=== PATIENT | male | born 1935 | race Caucasian/White ===

== ENCOUNTER → 2021-04-18 | Outpatient (CLI) | payer MEDICARE ==
[2021-04-18 10:03] LABS: HCT 34.1 % (39.0-53.0); HGB 11.1 gm/dL (13.0-17.5); Hypochromasia Slight; MCH 26.5 pg (25.0-35.0); MCHC 32.5 g/dL (31.0-37.0); MCV 81.4 fL (80.0-100.0); Mean Platelet Volume 6.8; Platelet Count 304 k/uL (150-450); RBC 4.19 m/uL (4.30-5.90); RDW 14.9 % (11.5-15.5); WBC 9.2 k/uL (3.8-10.6)
[2021-04-18 10:12] LABS: Partial Thromboplastin Time 24.7 sec (22.0-30.0); Prothrombin Time 11.1 sec (9.0-12.0)
[2021-04-18 10:14] LABS: Appearance,Urine Clear (Clear); Bilirubin,Urine Negative (Negative); Blood,Urine Negative (Negative); Color,Urine Yellow; Glucose,Urine (UA) Negative (Negative); Ketones,Urine Negative (Negative); Leukocyte Esterase,Urine Negative (Negative); Nitrite,Urine Negative (Negative); PH, Urine 5.5 (5.0-8.0); Protein,Urine Negative (Negative); Specific Gravity,Urine 1.019 (1.001-1.035); Urobilinogen,Urine <2.0 mg/dL (<2.0)
[2021-04-18 10:16] LABS: ALT 10 U/L (4-49); AST 23 U/L (17-59); African American GFR (CKD) >90 (>60 ml/min/1.73 sqM); Albumin 3.8 g/dL (3.5-5.0); Alkaline Phosphatase 84 U/L (38-126); Anion Gap 6 mmol/L; Blood Urea Nitrogen 17 mg/dL (9-20); Calcium 9.3 mg/dL (8.4-10.2); Carbon Dioxide 32 mmol/L (22-30); Chloride 100 mmol/L (98-107); Glucose 113 mg/dL (74-99); Non-African American GFR(CKD) 84 (>60 ml/min/1.73 sqM); Potassium 4.3 mmol/L (3.5-5.1); Sodium 138 mmol/L (137-145); Total Bilirubin 0.6 mg/dL (0.2-1.3); Total Protein 7.8 g/dL (6.3-8.2)
== END | disposition home or self-care (01) ==
LOC: LABPAT 09:09
PROVIDERS: ATTEND Orthopaedic Surgery
DX: Z01.812 Encounter for preprocedural laboratory examination (principal); Z79.01 Long term (current) use of anticoagulants
CPT/HCPCS: 80053; 81003; 85027; 85610; 85730; 87070; 93005

== ENCOUNTER → 2021-04-18 | Outpatient (CLI) | payer MEDICARE ==
[2021-04-18 14:50] LABS: LDL Cholesterol,Calculated 60.8 mg/dL (0.0-131.0); VLDL Calculation 11.2 mg/dL (5.00-40.00)
== END | disposition home or self-care (01) ==
LOC: LABWHC1 09:11
PROVIDERS: ATTEND Family Medicine
DX: E78.00 Pure hypercholesterolemia, unspecified (principal); I10 Essential (primary) hypertension; R63.4 Abnormal weight loss; R10.9 Unspecified abdominal pain
CPT/HCPCS: 36415; 80061; 82150; 83690; 84443

== ENCOUNTER 2021-05-09 13:14 | Observation (INO) | payer MEDICARE ==
[2021-05-03 13:49] VITALS: BMI 27.2
[~2021-05-09 13:14] MED LIST: ACETAMINOPHEN TAB 500 MG TAB PO PRN; HYDROmorphone 0.5 MG/0.5 ML SYRINGE IVP PRN; MELOXICAM 7.5 MG TAB PO PRN; MIDAZOLAM 2 MG/2 ML VIAL IV PRN; ONDANSETRON 4 MG/2 ML VIAL IVP PRN; ROPIVACAINE/EPI/CLONIDINE/KET 50 ML SYRINGE MISCELLANE PRN; TRANEXAMIC ACID 1,000 MG in SODIUM CHLORIDE 0.9% 100 ML IVPB PRN
[2021-05-09] MEDS: LACTATED RINGERS 1,000 ML IV SCH (14:01)
[2021-05-09] MEDS ORDERED: fentaNYL (PF) 50 MCG/ML 2 ML AMP IVP ONE (14:23)
[2021-05-09] MEDS ORDERED: MIDAZOLAM 2 MG/2 ML VIAL IVP ONE (14:23)
[2021-05-09] MEDS ORDERED: ROPIVACAINE 5 MG/ML 30 ML VIAL ONE (14:41)
[2021-05-09] MEDS ORDERED: fentaNYL (PF) 50 MCG/ML 2 ML AMP ONE (14:41)
[2021-05-09] MEDS ORDERED: SODIUM CHLORIDE 0.9% (PF) 10 ML VIAL ONE (14:41)
[2021-05-09] MEDS ORDERED: PROPOFOL 10 MG/ML 20 ML VIAL IV ONE (14:41)
[2021-05-09] MEDS ORDERED: PHENYLEPHRINE-0.9% NACL SYG 1,000 MCG/10 ML SYRINGE ONE (14:41)
[2021-05-09] MEDS ORDERED: MIDAZOLAM 2 MG/2 ML VIAL ONE (14:41)
[2021-05-09] MEDS ORDERED: SODIUM CHLORIDE 0.9% 100 ML BAG ONE (14:41)
[2021-05-09] MEDS ORDERED: TRANEXAMIC ACID 1,000 MG/10 ML VIAL ONE (14:41)
--- NOTE | 2021-05-09 15:03 | P.ANPRN ---
Procedure Note - Anesthesia - Nerve Block Performed Right Adductor Canal Infusion Time Out Performed: Yes (1422) Date of Procedure: 05/09/21 Procedure Start Time: 14:24 Procedure Stop Time: 14:31 Location of Patient: PreOp Indication: Acute Post-Operative Pain, Requested by Surgeon Specifically requested for management of pain by DrChristopher: Kevin Montez Sedation Type: Sedate with meaningful contact maintained Preparation: Sterile Prep Position: Supine Catheter Depth at Skin (cm): 7 Needle Types: Pajunk Needle Gauge: 21 Ultrasound used to visualize needle placement: Yes Ultrasound used to observe medication spread: Yes Injectate: 0.5% Ropivacaine (see comment for volume) (15cc + 5cc NACL) Blood Aspirated: No Pain Paresthesia on Injection Noted: No Resistance on Injection: Normal Image Stored and Saved: Yes Events: Uneventful and Well Tolerated Right iPack Single Time Out Performed: Yes (1422) Date of Procedure: 05/09/21 Procedure Start Time: 14:32 Procedure Stop Time: 14:36 Location of Patient: PreOp Indication: Acute Post-Operative Pain, Requested by Surgeon Specifically requested for management of pain by DrChristopher: Kevin Montez Sedation Type: Sedate with meaningful contact maintained Preparation: Sterile Prep Position: Supine Catheter: Indwelling Needle Types: Pajunk Needle Gauge: 21 Ultrasound used to visualize needle placement: Yes Ultrasound used to observe medication spread: Yes Injectate: 0.5% Ropivacaine (see comment for volume) (15cc + 5cc NACL) Blood Aspirated: No Pain Paresthesia on Injection Noted: No Resistance on Injection: Normal Image Stored and Saved: Yes Events: Uneventful and Well Tolerated
[2021-05-09] MEDS ORDERED: HYDROmorphone 0.5 MG/0.5 ML SYRINGE IVP PRN (17:11)
[2021-05-09] MEDS ORDERED: NALOXONE 0.4 MG/ML 1 ML VIAL IV PRN (17:11)
[2021-05-09] MEDS ORDERED: HYDROcodone/APAP 5-325MG 1 EACH TAB PO PRN (17:11)
[2021-05-09] MEDS ORDERED: TEMAZEPAM 15 MG CAP PO PRN (17:11)
[2021-05-09] MEDS ORDERED: NA PHOS,M-B/NA PHOS,DI-BA 133 ML ENEMA RECTAL PRN (17:11)
[2021-05-09] MEDS ORDERED: HYDROmorphone 0.2 MG/1 ML SYRINGE IVP PRN (17:11)
[2021-05-09] MEDS ORDERED: bisacodyL 10 MG SUPP RECTAL PRN (17:11)
[2021-05-09] MEDS ORDERED: ONDANSETRON 4 MG/2 ML VIAL IVP PRN (17:11)
[2021-05-09] MEDS: ROPIVACAINE 0.2%-NS ON-Q PUMP 1,090 MG, EMPTY PAIN BALL 1 EACH MISCELLANE PRN (17:21)
--- NOTE | 2021-05-09 17:25 | P.OP ---
Date of Procedure: 05/09/21 Procedure(s) Performed: PREOPERATIVE DIAGNOSIS: Right knee severe osteoarthritis with severe preoper ative flexion contracture POSTOPERATIVE DIAGNOSIS: 1. Right knee severe osteoarthritis with severe preoperative flexion contracture; 2. Inflammatory arthropathy OPERATION: Right knee cemented total replacement arthroplasty. ANESTHESIA: Spinal and regional ESTIMATED BLOOD LOSS: 150 ml. POWER ORIGINATOR: Kate Lomas PA-C (assistance with: patient positioning, retraction, exposure, hemostasis, leg positioning, implantation, irrigation, closure, dressing) COMPLICATIONS: None apparent. COMPONENTS IMPLANTED: Journey II BCS total knee system from [employer] [facility] [facility], [facility] INDICATIONS: Be is an 86 year old male with a history of right knee osteoarthritis and severe flextion contracture amounting to about 25 degrees loss of terminal extension. The patient's knee is end-stage, and conservative management has failed. The operation of knee replacement has been discussed at length in the office, as well as potential risks and complications. These are inclusive of, but not limited to: bleeding, infection, scarring, discomfort, blood vessel and nerve damage, need for further surgery, failure to relieve symptoms, persistence, recurrence, or worsening of problems, loosening, dislo cation, wear, blood clot, pulmonary embolism, , gait dysfunction, stiffness, and other risks as discussed in the office. The patient elects to proceed and the consent form has been signed. PROCEDURE: The patient was taken to the operating room and positioned on the operating room table in the supine position. Anesthesia was initiated. Care was taken to make sure that all pressure points were adequately padded. The operative lower extremity was prepped and draped in the usual aseptic fashion using ChloraPrep. Ioban drape was used for the case and the patient received intravenous antibiotics within one hour of the incision. A pneumotourniquet and leg palma were used for the case. Time-out was called confirming the patient's identity, side, procedure and administration of antibiotics and tranexamic acid. The incision was then created midline directly over the right knee, carried down through skin and into the subcutaneous tissues and down to fascia. Full thickness subcutaneous medial flap was developed. Medial parapatellar arthrotomy was performed and the interior of the knee was inspected. There was end-stage osteoarthritis of the knee with a mild to moderate genu valgum type deformity. Significant inflammation of the synovium was noted, consistent with possible generalized inflammatory arthropathy. The fat pad was excised and proximal medial release on the tibia was completed using meticulous dissection and a curved osteotome. The anterior cruciate ligament was taken down. Note was made of significant attrition of the anterior and significant degenerative a ppearance of the cruciate ligaments. The exposure was excellent and hemostasis was regularly maintained using electrocautery. This was particularly important as the severely inflamed synovium was resected, to prevent significant blood loss. The knee was flexed 90 degrees and the patella was everted. The [employer] pre- made distal cutting block was attached and pinned into position. The planned cut was analyzed visually and with the alignment ion and found to be satisfactory without the need for any adjustment. The oscillating saw was then used to make the distal femoral cut and make the alignment holes for the 5 in 1 block. This cut was confirmed to be flat with the flat end of an osteotome. The 5 in 1 block was then used to create the anterior posterior condylar resections and the chamfer cuts. Bone quality was excellent. The retractors were placed around the tibia and the tibial surface was addressed. The Visionaire pre-made guide was placed onto the exposed tibial surface and pinned into position to gabriel the rotational alignment. The alignment of the guide was checked for depth of plannned resection, slope, and varus valgus. Guide was confirmed to be in good position and the tibial cut was then created with protection of the posterior neurovascular structures and the collateral ligaments. The tibial cut surface was removed and sized. Spacer block technique was then used to confirm that the flexion and extension gaps were equal. Soft tissue releases and adjustment of the tibial and/or femoral cuts were made, as necessary, until the gaps were equal. This included release of the posterior cruciate ligament, which was excessively tight in this patient. The trial components were inserted. The tibial tray was allowed to self center and the patella was noted to track very well. The position of the tibial component was marked and noted to be nearly exactly aligned with the pre-drilled holes from the Visionaire guide. The tibia was then finished for a stemmed tibial component. Patellar resurfacing was performed using a reamer. The size of the required patellar component was estimated and the patellar surface was then reamed down to a residual thickness which would recreate the brevig mission thickness with the component. The exact placement of the patellar component was adjusted for position based on preoperative x-rays and intraoperative findings. The limb was exsanguinated with an Esmarch bandage and the tourniquet was inflated to 350 mmHg. Trial components were removed and the cut surfaces of the bone were pulse lavaged thoroughly and dried. Cement was mixed on the back table and applied to the final components. Cement was then applied to the tibial surface and pressurized into the surface using finger pressurization technique. The tibial component was then applied and excess cement was removed after it was impacted securely and noted to be flush with the cut surface. In similar fashion, the cement was applied to the cut femoral surface, pressurized in using finger pressurization and the component was impacted into place. Excess cement was removed. The polyethylene spacer was then implanted and locked into position. The patellar component was then applied in similar technique and a patellar clamp was used to hold the patella in place as the cement hardened. Once the cement had fully hardened, the knee was reinspected. Any other cement extrusion was removed and final kinematic testing showed range of motion from 0 to 130 degrees with excellent stability, both medially and laterally and appropriate alignment of the leg. Patellar tracking was excellent. The knee was then thoroughly pulse lavaged with normal saline. The tourniquet was deflated and hemostasis was obtained with electrocautery and IV tranexamic acid, 1 g given at the start of the operation and 1 g at the start of closure. Closure was with #2 Ethibond in the fascia/capsule and supplemented with #2 Quill, 2-0 Vicryl suture was used for the subcutaneous tissues and 3-0 Quill for the skin. Dermabond/Steri-Strips were then applied. A lightly compressive dressing was applied using Webril and an Nathan wrap. The patient was then transferred to stretcher and taken to the recovery room in stable condition. Sponge and needle counts were correct.
--- NOTE | 2021-05-09 17:48 | XR ---
EXAMINATION TYPE: XR knee limited RT DATE OF EXAM: 05/09/2021 COMPARISON: NONE HISTORY: Postop TECHNIQUE: 2 views FINDINGS: There is right knee prosthesis. Components appear in anatomic position.. IMPRESSION: No complicating process seen.
[2021-05-09] MEDS: HYDROmorphone 0.5 MG/0.5 ML SYRINGE IVP PRN ×2 (19:46→22:56)
[2021-05-09] MEDS: ASPIRIN 81 MG PO SCH (21:00)
[2021-05-09] MEDS: SENNOSIDES-DOCUSATE SODIUM 1 EACH TAB PO SCH (21:00)
[2021-05-09] MEDS: HYDROcodone/APAP 5-325MG 1 EACH TAB PO PRN (21:00)
[2021-05-10] MEDS: SENNOSIDES-DOCUSATE SODIUM 1 EACH TAB PO SCH (02:27)
[2021-05-10] MEDS: ROPIVACAINE 0.2%-NS ON-Q PUMP 1,090 MG, EMPTY PAIN BALL 1 EACH MISCELLANE PRN ×2 (04:46→05:59)
[2021-05-10] MEDS: HYDROmorphone 0.5 MG/0.5 ML SYRINGE IVP PRN ×2 (04:47→09:40)
[2021-05-10] MEDS: HYDROcodone/APAP 5-325MG 1 EACH TAB PO PRN ×2 (05:58→14:21)
[2021-05-10 05:59] LABS: Basophils % (A) 0 %; Eosinophils # (A) 0.1 k/uL (0-0.7); Eosinophils % (A) 1 %; HCT 36.6 % (39.0-53.0); HGB 11.6 gm/dL (13.0-17.5); Lymphocytes % (A) 14 %; MCH 26.6 pg (25.0-35.0); MCHC 31.7 g/dL (31.0-37.0); MCV 83.8 fL (80.0-100.0); Mean Platelet Volume 7.1; Monocytes # (A) 0.7 k/uL (0-1.0); Monocytes % (A) 9 %; Neutrophils # (A) 5.3 k/uL (1.3-7.7); Neutrophils % (A) 73 %; Platelet Count 267 k/uL (150-450); RBC 4.37 m/uL (4.30-5.90); WBC 7.3 k/uL (3.8-10.6)
[2021-05-10] MEDS: LACTATED RINGERS 1,000 ML IV SCH ×4 (07:57→14:19)
[2021-05-10] MEDS: ASPIRIN 81 MG PO SCH (08:01)
[2021-05-10] MEDS ORDERED: traZODone HCL 100 MG TAB PO PRN (08:20)
[2021-05-10] MEDS ORDERED: ATORVASTATIN 40 MG TAB PO SCH (09:00)
[2021-05-10] MEDS ORDERED: LOSARTAN 50 MG TAB PO SCH (09:00)
--- NOTE | 2021-05-10 11:32 | P.DS ---
Providers Expected date of discharge: 05/10/21 Attending physician: Kevin Montez Consults: 05/09/21 17:11 Consult Physician Routine Consulting Provider: Peri Burciaga Consult Reason/Comments: medical management Do you want consulting provider notified?: Yes Primary care physician: Ruel Jung - Discharge Diagnosis(es) (1) S/P total knee arthroplasty Current Visit: Yes Status: Acute (2) Osteoarthritis of right knee Current Visit: Yes Status: Acute Assessment: This is a 86-year-old male with known history of degenerative arthritis of the right knee. The patient presented for evaluation as an outpatient. After discussion and consideration patient elects to proceed with total knee arthroplasty. The patient is seen preoperatively by Dr. Montez and medically cleared for surgery by their primary care physician. Patient is admitted to [facility] on 05/09/2021 for total knee arthroplasty. The procedure is performed without complication or sequelae. The patient is doing well postoperatively. Labs and vital signs are stable on day of discharge. On day of discharge patient's knee incision is healing well. There is minimal erythema. There is no drainage noted at this time. There is minimal soft tissue swelling to the knee. Patient has full foot and ankle motion without difficulty or pain. Calf is soft and nontender to palpation. Neurovascular status to the right lower extremity is intact. Patient is discharged home in good condition. Please see med rec for accurate list of home medications. Plan - Discharge Summary Discharge Rx Participant: Yes New Discharge Prescriptions: New Aspirin [Adult Low Dose Aspirin EC] 81 mg PO BID #1 tablet.dr HYDROcodone/APAP 5-325MG [[place] 5] 1 - 2 each PO Q6H PRN #48 tab PRN Reason: Pain Ondansetron Odt [Zofran Odt] 4 mg PO Q8HR PRN #14 tab PRN Reason: Nausea Meloxicam [Mobic] 1 - 2 tab PO DAILY PRN #30 tab PRN Reason: Pain Gabapentin [Neurontin] 300 mg PO BID 5 Days #10 cap Sennosides-Docusate Sodium [Senokot-S] 1 tab PO BID #60 tablet Continue Losartan Potassium 50 mg PO DAILY Latanoprost Ophth [Xalatan 0.005%] 1 drop BOTH EYES HS Atorvastatin [Lipitor] 40 mg PO DAILY Potassium Gluconate 99 mg PO DAILY Nitroglycerin Sl Tabs [Nitrostat] 0.4 mg SUBLINGUAL Q5M PRN PRN Reason: Angina Naproxen Sodium [Aleve] 220 mg PO BID PRN PRN Reason: Pain traZODone HCL [Desyrel] 100 mg PO HS PRN PRN Reason: Insomnia Vit C/E/Zn/Coppr/Lutein/Zeaxan [Preservision Areds 2 Softgel] 1 each PO DAILY Discharge Medication List Atorvastatin [Lipitor] 40 mg PO DAILY 05/03/21 [History] Latanoprost Ophth [Xalatan 0.005%] 1 drop BOTH EYES HS 05/03/21 [History] Losartan Potassium 50 mg PO DAILY 05/03/21 [History] Naproxen Sodium [Aleve] 220 mg PO BID PRN 05/03/21 [History] Nitroglycerin Sl Tabs [Nitrostat] 0.4 mg SUBLINGUAL Q5M PRN 05/03/21 [History] Potassium Gluconate 99 mg PO DAILY 05/03/21 [History] Vit C/E/Zn/Coppr/Lutein/Zeaxan [Preservision Areds 2 Softgel] 1 each PO DAILY 05/03/21 [History] traZODone HCL [Desyrel] 100 mg PO HS PRN 05/03/21 [History] Aspirin [Adult Low Dose Aspirin EC] 81 mg PO BID #1 tablet. 05/09/21 [Rx] Gabapentin [Neurontin] 300 mg PO BID 5 Days #10 cap 05/09/21 [Rx] HYDROcodone/APAP 5-325MG [[place] 5] 1 - 2 each PO Q6H PRN #48 tab 05/09/21 [Rx] Meloxicam [Mobic] 1 - 2 tab PO DAILY PRN #30 tab 05/09/21 [Rx] Ondansetron Odt [Zofran Odt] 4 mg PO Q8HR PRN #14 tab 05/09/21 [Rx] Sennosides-Docusate Sodium [Senokot-S] 1 tab PO BID #60 tablet 05/09/21 [Rx] Follow up Appointment(s)/Referral(s): Kate Lomas PAC [PHYSICIAN DIVORCE ATTORNEY] - 2 Weeks Ruel Jung MD [Primary Care Provider] - 1 Week Activity/Diet/Wound Care/Special Instructions: May bear wt as tolerated w walker. May shower 48h post op. Keep Optifoam dressing intact 10 days. Begin out patient PT as directed. Discharge Disposition: HOME SELF-CARE
--- NOTE | 2021-05-10 11:55 | P.CONS ---
History of Present Illness - Reason for Consult Consult date: 05/10/21 - History of Present Illness HISTORY OF PRESENT ILLNESS This is an 86-year-old male patient of Dr. Ruel Jung's medical history of coronary artery disease with stent in 2007, hypertension, hyperlipidemia, benign prostatic hypertrophy, obstructive sleep apnea, glaucoma, blind in the left eye. Patient has been brought into the hospital under the care of Dr. Prater status post right total knee arthroplasty. Patient states no nausea or vomiting, no chest pain or shortness of breath. He is waiting to work with physical therapy this morning. He states that prior to the surgery he ambulated slowly but did not utilize cane or walker. He states he did have one episode of dizziness but this was about a week ago and had a fall at his sister's. Patient has been afebrile, heart rate 85, blood pressure 170/86, pulse ox 97%. Blood pressure was taken prior to medications as morning. He is planning to go to his sister's at the time of discharge. REVIEW OF SYSTEMS Constitutional: No fever, no chills, no night sweats. No weight change. No weakness, fatigue or lethargy. No daytime sleepiness. EENT: No headache. No blurred vision or double vision, no loss of vision. No loss of Hearing, no ringing in the ears, no dizziness. No nasal drainage or congestion. No epistaxis. No sore throat. Lungs: No shortness of breath, cough, no sputum production. No wheezing. Cardiovascular: No chest pain, no lower extremity edema. No palpitations. No paroxysmal nocturnal dyspnea. No orthopnea. No lightheadedness or dizziness. No syncopal episodes. Abdominal: No abdominal pain. No nausea, vomiting. No diarrhea. No constipation. No bloody or tarry stools.. No loss of appetite. Genitourinary: No dysuria, increased frequency, urgency. No urinary retention. Musculoskeletal: No myalgias. No muscle weakness, no gait dysfunction, no frequent falls. No back pain. No neck pain. Mild discomfort to the right knee. Integumentary: No wounds, no lesions. No rash or pruritus. No unusual bruising. No change in hair or nails. Neurologic: No aphasia. No facial droop. No change in mentation. No head injury. No headache. No paralysis. No paresthesia. Psychiatric: No depression. No anxiety. No mood swings. Endocrine: No abnormal blood sugars. No weight change. No excessive sweating or thirst. No cold intolerance. SOCIAL HISTORY Patient is a nonsmoker. He drinks a beer about once a week. He has his own home but has been living with his sister and plans to return to his sister's at discharge. He does not utilize cane or walker for ambulation. Patient is a . FAMILY HISTORY Father at age 64 from coronary artery disease. Mother at age 98 from old age. Patient has one brother living at 70s and is handicapped. He had one brother in his 50s from liver cancer. Patient has 3 sisters with no major medical problems. He does not have any biological children. PHYSICAL EXAMINATION Gen: This is an 86-year-old male patient. He is resting in bed and appears to be comfortable and in no acute distress. HEENT: Head is atraumatic, normocephalic. Pupils equal, round. Sclerae is anicteric. NECK: Supple. No JVD. No lymphadenopathy. No thyromegaly. LUNGS: Clear to auscultation. No wheezes or rhonchi. No intercostal retractions. HEART: Regular rate and rhythm. No murmur. ABDOMEN: Soft. Bowel sounds are present. No masses. No tenderness. EXTREMITIES: No pedal edema. No calf tenderness. Small dressing in place to the right knee. NEUROLOGICAL: Patient is awake, alert and oriented x3. Cranial nerves 2 through 12 are grossly intact. ASSESSMENT AND PLAN 1. Osteoarthritis status post right total knee arthroplasty. Continue PT OT per orthopedics, incentive spirometry to reduce incidence of atelectasis and hos pital-acquired pneumonia, aspirin for DVT prophylaxis. 2. Hypertension. Continue losartan 50 mg daily. 3. Hyperlipidemia. Continue Lipitor 40 mg daily. 4. History of coronary artery disease. No complaints of chest pain. Continue Lipitor, losartan. 5. Benign prostatic hypertrophy, stable. No urinary retention. 6. History of obstructive sleep apnea stable. 7. Glaucoma. DISCHARGE PLAN Return home with his sister with homecare. Impression and plan of care have been directed as dictated by the signing physician. Yojana Juarez nurse practitioner acting as scribe for signing physician. Past Medical History Past Medical History: Coronary Artery Disease (CAD), Eye Disorder, Hyperlipidemia, Hypertension, Prostate Disorder, Sleep Apnea/CPAP/BIPAP Additional Past Medical History / Comment(s): states not currently taking HTN meds, glaucoma, blind left eye History of Any Multi-Drug Resistant Organisms: None Reported Past Surgical History: Heart Catheterization With Stent Additional Past Surgical History / Comment(s): jodee cataract, hemmoroidectomy, one cardiac stent Past Anesthesia/Blood Transfusion Reactions: No Reported Reaction Date of Last Stent Placement:: 2007 Past Psychological History: No Psychological Hx Reported Smoking Status: Former smoker Past Alcohol Use History: Rare Past Drug Use History: None Reported Medications and Allergies Home Medications Medication Instructions Recorded Confirmed Type Atorvastatin [Lipitor] 40 mg PO DAILY 05/03/21 05/03/21 History Latanoprost Ophth [Xalatan 0.005%] 1 drop BOTH EYES HS 05/03/21 05/03/21 History Losartan Potassium 50 mg PO DAILY 05/03/21 05/03/21 History Naproxen Sodium [Aleve] 220 mg PO BID PRN 05/03/21 05/03/21 History Nitroglycerin Sl Tabs [Nitrostat] 0.4 mg SUBLINGUAL Q5M PRN 05/03/21 05/09/21 History Potassium Gluconate 99 mg PO DAILY 05/03/21 05/03/21 History Vit C/E/Zn/Coppr/Lutein/Zeaxan 1 each PO DAILY 05/03/21 05/03/21 History [Preservision Areds 2 Softgel] traZODone HCL [Desyrel] 100 mg PO HS PRN 05/03/21 05/03/21 History Aspirin [Adult Low Dose Aspirin EC] 81 mg PO BID #1 tablet. 05/09/21 Rx Gabapentin [Neurontin] 300 mg PO BID 5 Days #10 cap 05/09/21 Rx HYDROcodone/APAP 5-325MG [[place] 5] 1 - 2 each PO Q6H PRN #48 tab 05/09/21 Rx Meloxicam [Mobic] 1 - 2 tab PO DAILY PRN #30 tab 05/09/21 Rx Ondansetron Odt [Zofran Odt] 4 mg PO Q8HR PRN #14 tab 05/09/21 Rx Sennosides-Docusate Sodium 1 tab PO BID #60 tablet 05/09/21 Rx [Senokot-S] Allergies Allergy/AdvReac Type Severity Reaction Status Date / Time Penicillins Allergy Rash/Hives Verified 05/09/21 13:44 Physical Exam Vitals: Vital Signs Temp Pulse Pulse Resp BP Pulse Ox 05/10/21 04:11 98.8 F 85 14 170/86 97 05/10/21 02:11 94 16 145/78 05/10/21 00:11 89 14 152/70 95 05/09/21 22:11 98.6 F 90 14 145/70 95 05/09/21 21:00 98.7 F 98 16 163/68 97 05/09/21 20:11 98.6 F 95 16 166/73 97 05/09/21 19:11 97.7 F 79 16 183/86 97 05/09/21 18:06 52 L 16 142/65 100 05/09/21 17:51 50 L 16 136/62 98 05/09/21 17:36 50 L 16 131/64 99 05/09/21 17:21 53 L 16 139/66 98 05/09/21 17:06 96.8 F L 68 12 142/66 97 05/09/21 14:40 72 15 143/66 100 05/09/21 13:51 97.6 F 95 15 171/73 98 Intake and Output 05/09/21 05/10/21 05/10/21 22:59 06:59 14:59 Intake Total 50 Output Total 150 Balance -100 Intake: IV 50 Output: Estimated Blood Loss 150 Other: Weight 74.7 kg Results CBC & Chem 7: 05/10/21 05:26 Labs: Abnormal Lab Results - Last 24 Hours (Table) 05/10/21 Range/Units 05:26 Hgb 11.6 L (13.0-17.5) gm/dL Hct 36.6 L (39.0-53.0) %
[2021-05-10 12:08] VITALS: BP 167/79; PULSE 98; RESP 17; TEMP 98.1
[2021-05-10] MEDS ORDERED: LATANOPROST 0.005% OPHTH DROPS 2.5 ML BTL BOTH EYES SCH (21:00)
== END 2021-05-10 15:32 | disposition home health service (06) ==
LOC: OR 13:14 → 5NMEDONC 17:06 → OR 05-10 10:56 → 5NMEDONC 05-10 10:56
PROVIDERS: ADMIT Orthopaedic Surgery; ATTEND Orthopaedic Surgery
DX: M17.11 Unilateral primary osteoarthritis, right knee (principal); M21.061 Valgus deformity, not elsewhere classified, right knee; M24.561 Contracture, right knee; I25.10 Atherosclerotic heart disease of native coronary artery without angina pectoris; I10 Essential (primary) hypertension; E78.5 Hyperlipidemia, unspecified; G47.33 Obstructive sleep apnea (adult) (pediatric); H40.9 Unspecified glaucoma; H54.62 Unqualified visual loss, left eye, normal vision right eye; N40.0 Benign prostatic hyperplasia without lower urinary tract symptoms; G47.00 Insomnia, unspecified; M41.9 Scoliosis, unspecified; M54.16 Radiculopathy, lumbar region; N52.9 Male erectile dysfunction, unspecified; H93.19 Tinnitus, unspecified ear; M17.12 Unilateral primary osteoarthritis, left knee; Z79.2 Long term (current) use of antibiotics; Z79.82 Long term (current) use of aspirin; Z79.1 Long term (current) use of non-steroidal anti-inflammatories (NSAID); Z79.899 Other long term (current) drug therapy; Z88.0 Allergy status to penicillin; Z87.891 Personal history of nicotine dependence; Z97.3 Presence of spectacles and contact lenses; Z91.81 History of falling; Z98.890 Other specified postprocedural states; Z95.5 Presence of coronary angioplasty implant and graft; Z82.69 Family history of other diseases of the musculoskeletal system and connective tissue; Z81.2 Family history of tobacco abuse and dependence; Z82.49 Family history of ischemic heart disease and other diseases of the circulatory system; Z80.0 Family history of malignant neoplasm of digestive organs
CPT/HCPCS: 27447; 97162; 64999; 64448; 76942; 85025; 88300; 73560; G0378; C1713; C1776; J2250; J0690 ×2; J2405; J3010; J2795 ×3; J2370; J2704; J1170 ×2

== ENCOUNTER 2024-07-23 06:02 | Inpatient (IN) | payer MEDICARE ==
[2024-07-23] MEDS: HYDROmorphone 0.5 MG/0.5 ML SYRINGE IVP STA ×2 (06:24→07:50)
--- NOTE | 2024-07-23 06:52 | ED ---
Abdominal Pain HPI - General Chief Complaint: Abdominal Pain Stated Complaint: abd pain Time Seen by Provider: 07/23/24 06:13 Source: patient, EMS, RN notes reviewed Mode of arrival: EMS Limitations: no limitations - History of Present Illness Initial Comments: This is an 89-year-old male presents emergency department as a transfer from [facility] for abdominal pain. Patient states that he started having abdominal pain for the last 24 hours he states it worsened last night in which he presented to [facility] having an x-ray showing possibility of free air. Patient states he has pain in his upper stomach but there is some diffuse pain. He denies any significant change in bowel habits denies any dysuria patient was found to have elevated kidney function without any known history. Chest pain shortness of breath - Related Data Home Medications Medication Instructions Recorded Confirmed Atorvastatin [Lipitor] 40 mg PO DAILY 05/03/21 05/03/21 Latanoprost Ophth [Xalatan 0.005%] 1 drop BOTH EYES HS 05/03/21 05/03/21 Losartan Potassium 50 mg PO DAILY 05/03/21 05/03/21 Naproxen Sodium [Aleve] 220 mg PO BID PRN 05/03/21 05/03/21 Nitroglycerin Sl Tabs [Nitrostat] 0.4 mg SUBLINGUAL Q5M PRN 05/03/21 05/09/21 Potassium Gluconate [Potassium 99 mg PO DAILY 05/03/21 05/03/21 Gluconate ER] Vit C/E/Zn/Coppr/Lutein/Zeaxan 1 each PO DAILY 05/03/21 05/03/21 [Preservision Areds 2 Softgel] traZODone HCL [Desyrel] 100 mg PO HS PRN 05/03/21 05/03/21 Previous Rx's Medication Instructions Recorded Aspirin [Adult Low Dose Aspirin EC] 81 mg PO BID #1 tablet. 05/09/21 Gabapentin [Neurontin] 300 mg PO BID 5 Days #10 cap 05/09/21 HYDROcodone/APAP 5-325MG [[place] 5] 1 - 2 each PO Q6H PRN #48 tab 05/09/21 Meloxicam [Mobic] 1 - 2 tab PO DAILY PRN #30 tab 05/09/21 Ondansetron Odt [Zofran Odt] 4 mg PO Q8HR PRN #14 tab 05/09/21 Sennosides-Docusate Sodium 1 tab PO BID #60 tablet 05/09/21 [Senokot-S] Allergies Allergy/AdvReac Type Severity Reaction Status Date / Time Penicillins Allergy Rash/Hives Verified 07/23/24 06:17 Review of Systems ROS Statement: Those systems with pertinent positive or pertinent negative responses have been documented in the HPI. ROS Other: All systems not noted in ROS Statement are negative. Past Medical History Past Medical History: Coronary Artery Disease (CAD), Eye Disorder, Hyperlipidemia, Hypertension, Prostate Disorder, Sleep Apnea/CPAP/BIPAP Additional Past Medical History / Comment(s): states not currently taking HTN meds, glaucoma, blind left eye History of Any Multi-Drug Resistant Organisms: None Reported Past Surgical History: Heart Catheterization With Stent Additional Past Surgical History / Comment(s): jodee cataract, hemmoroidectomy, one cardiac stent Past Anesthesia/Blood Transfusion Reactions: No Reported Reaction Date of Last Stent Placement:: 2007 Past Psychological History: No Psychological Hx Reported Smoking Status: Former smoker Past Alcohol Use History: Rare Past Drug Use History: None Reported General Exam Limitations: no limitations General appearance: alert, in no apparent distress Head exam: Present: atraumatic, normocephalic, normal inspection Eye exam: Present: normal appearance, PERRL, EOMI. Absent: scleral icterus, conjunctival injection, periorbital swelling ENT exam: Present: normal exam, normal oropharynx, mucous membranes moist Neck exam: Present: normal inspection, full ROM. Absent: tenderness, meningismus, lymphadenopathy Respiratory exam: Present: normal lung sounds bilaterally. Absent: respiratory distress, wheezes, rales, rhonchi, stridor Cardiovascular Exam: Present: regular rate, normal rhythm, normal heart sounds. Absent: systolic murmur, diastolic murmur, rubs, gallop, clicks GI/Abdominal exam: Present: soft, tenderness, rigid, normal bowel sounds. Absent: distended, guarding, rebound Back exam: Absent: CVA tenderness (R), CVA tenderness (L) Neurological exam: Present: alert, oriented X3, CN II-XII intact Course Vital Signs 07/23/24 07/23/24 07/23/24 06:04 07:39 08:14 Temperature 97.6 F Pulse Rate 78 77 103 H Respiratory 18 18 18 Rate Blood Pressure 206/96 209/99 141/70 O2 Sat by Pulse 98 100 94 L Oximetry Medical Decision Making - Medical Decision Making Was pt. sent in by a medical professional or institution (TORITO Lorenzo, SECONDARY SET UP MAN, urgent care, hospital, or [facility]...) When possible be specific @ -[[facility] Did you speak to anyone other than the patient for history (EMS, parent, family, police, friend...)? What history was obtained from this source @ -No Did you review nursing and triage notes (agree or disagree)? Why? @ -I reviewed and agree with nursing and triage notes Were old charts reviewed (outside hosp., previous admission, EMS record, old EKG, old radiological studies, urgent care reports/EKG's, [facility] records)? Report findings @ -No old charts were reviewed Differential Diagnosis (chest pain, altered mental status, abdominal pain women, abdominal pain men, vaginal bleeding, weakness, fever, dyspnea, syncope, headache, dizziness, GI bleed, back pain, seizure, CVA, palpatations, mental health, musculoskeletal)? @ -Differential Abdominal Pain Men: Appendicitis, cholecystitis, diverticulosis, ischemic bowel, pancreatitis, hepatitis, UTI, gastroenteritis, AAA, incarcerated hernia, bowel obstruction, constipation, inflammatory bowel, hepatitis, peptic ulcer disease, splenic infarction, perforated viscus, testicular torsion, this is not meant to be an all-inclusive list EKG interpreted by me (3pts min.). @ -None X-rays interpreted by me (1pt min.). @ -None done CT interpreted by me (1pt min.). @ -CT abdomen pelvis showing no evidence of enlarged gallbladder no free air U/S interpreted by me (1pt. min.). @ -Ultrasound gallbladder, kidney and bladder showing normal kidneys no masses no hydronephrosis, evidence of cholelithiasis, cholecystitis What testing was considered but not performed or refused? (CT, X-rays, U/S, labs)? Why? @ -None What meds were considered but not given or refused? Why? @ -None Did you discuss the management of the patient with other professionals (professionals i.e. TORITO Lorenzo, SECONDARY SET UP MAN, lab, RT, psych nurse, social group worker, alteration tailor, teacher, agricultural loan officer, heel caser)? Give summary @ -Dr. Wilson for admission and notified Dr. Wells of possible cholelithiasis Was smoking cessation discussed for >3mins.? @ -No Was critical care preformed (if so, how long)? @ -No Were there social determinants of health that impacted care today? How? (Homelessness, low income, unemployed, alcoholism, drug addiction, transportation, low edu. Level, literacy, decrease access to med. care, [facility], rehab)? @ -No Was there de-escalation of care discussed even if they declined (Discuss DNR or withdrawal of care, Hospice)? DNR status @ -No What co-morbidities impacted this encounter? (DM, HTN, Smoking, COPD, CAD, Cancer, CVA, ARF, Chemo, Hep., AIDS, mental health diagnosis, sleep apnea, morbid obesity)? @ -None Was patient admitted / discharged? Hospital course, mention meds given and route, prescriptions, significant lab abnormalities, going to OR and other pertinent info. @ -Admitted patient has acute renal failure, dehydration, cholelithiasis with probable cholecystitis. Patient admitted to medicine with consult to surgery and nephrology Undiagnosed new problem with uncertain prognosis? @ -No Drug Therapy requiring intensive monitoring for toxicity (Heparin, Nitro, Insulin, Cardizem)? @ -No Were any procedures done? @ -No Diagnosis/symptom? @ -Acute renal failure, cholelithiasis, cholecystitis Acute, or Chronic, or Acute on Chronic? @ -Acute Uncomplicated (without systemic symptoms) or Complicated (systemic symptoms)? @ -Complicated Side effects of treatment? @ -No Exacerbation, Progression, or Severe Exacerbation? @ -No Poses a threat to life or bodily function? How? (Chest pain, [place], [place], pneumonia, PE, COPD, DKA, ARF, appy, cholecystitis, CVA, Diverticulitis, Homicidal, Suicidal, threat to staff... and all critical care pts) @ -Yes surgical risk - Lab Data Result diagrams: 07/23/24 07:31 07/23/24 07:31 Lab Results 07/23/24 07/23/24 07/23/24 Range/Units 07:31 07:31 07:31 WBC 11.4 H (3.8-10.6) k/uL RBC 4.10 L (4.30-5.90) m/uL Hgb 12.7 L (13.0-17.5) gm/dL Hct 36.5 L (39.0-53.0) % MCV 88.9 (80.0-100.0) fL MCH 30.9 (25.0-35.0) pg MCHC 34.7 (31.0-37.0) g/dL RDW 13.4 (11.5-15.5) % Plt Count 187 (150-450) k/uL MPV 8.6 Neutrophils % 84 % Lymphocytes % 8 % Monocytes % 5 % Eosinophils % 1 % Basophils % 0 % Neutrophils # 9.6 H (1.3-7.7) k/uL Lymphocytes # 1.0 (1.0-4.8) k/uL Monocytes # 0.6 (0-1.0) k/uL Eosinophils # 0.1 (0-0.7) k/uL Basophils # 0.0 (0-0.2) k/uL Sodium 143 (137-145) mmol/L Potassium 4.0 (3.5-5.1) mmol/L Chloride 112 H (98-107) mmol/L Carbon Dioxide 18 L (22-30) mmol/L Anion Gap 13 mmol/L BUN 41 H (9-20) mg/dL Creatinine 3.00 H (0.66-1.25) mg/dL Est GFR (CKD-EPI)AfAm 20 (>60 ml/min/1.73 sqM) Est GFR (CKD-EPI)NonAf 18 (>60 ml/min/1.73 sqM) Glucose 137 H (74-99) mg/dL Plasma Lactic Acid Kelechi 1.0 (0.7-2.0) mmol/L Calcium 8.8 (8.4-10.2) mg/dL Total Bilirubin 0.8 (0.2-1.3) mg/dL AST 26 (17-59) U/L ALT 10 (4-49) U/L Alkaline Phosphatase 85 (38-126) U/L Total Protein 7.9 (6.3-8.2) g/dL Albumin 4.0 (3.5-5.0) g/dL Disposition Clinical Impression: Acute renal failure, Cholelithiasis with cholecystitis Disposition: ADMITTED IP TO THIS [facility] Condition: Fair Referrals: Emanuel Hogan MD [Primary Care Provider] - 1-2 days Time of Disposition: 09:45
--- NOTE | 2024-07-23 07:18 | CT ---
EXAMINATION TYPE: CT abdomen pelvis wo con CT DLP: 576 mGycm, Automated exposure control for dose reduction was used. DATE OF EXAM: 07/23/2024 6:53 AM COMPARISON: Plain film outside institution. CLINICAL INDICATION: Male, 89 years old with history of abd pain/possible free air; TECHNIQUE: Axial CT abdomen pelvis wo con;Sagittal and coronal reformats were created on a separate workstation. Contrast used: mL of , (none if empty) Oral contrast used: (none if empty) FINDINGS: LOWER CHEST: Fibrotic changes with peripheral reticulation and possible early honeycombing the right lung base. The heart is enlarged for size with severe coronary artery cusp patient's. ABDOMEN LIVER: Few scattered probable cysts. GALLBLADDER AND BILE DUCTS: Mildly distended with possible wall thickening. Few layering tiny gallsto allie may be present. PANCREAS: Unremarkable. SPLEEN: Unremarkable. ADRENAL GLANDS: Unremarkable. KIDNEYS AND URETERS: Nonobstructing right 2 mm calculus. No left renal calculi. No obstructive uropat hy. PELVIS BLADDER: Unremarkable REPRODUCTIVE: Prostate is enlarged in size measuring 5.8 cm in transverse dimension. ABDOMEN & PELVIS STOMACH AND BOWEL: No evidence of bowel obstruction. PERITONEUM/RETROPERITONEUM: No evidence of pneumoperitoneum or free fluid. VASCULATURE: Moderate atherosclerotic calcifications are present throughout the abdominal aorta and i ts branches. No evidence of aortic aneurysm. MUSCULOSKELETAL: No acute osseous abnormalities. Mild disc degeneration changes are present throughou t the thoracolumbar spine. LYMPH NODES: No gross evidence for lymphadenopathy. SOFT TISSUE/ABDOMINAL WALL: Fatty changes to the inguinal canal. IMPRESSION: 1. No free air in the abdomen visualized. Finding on same day radiograph correlates with likely triny shantel lumen at outside institution. 2. Prominence of the gallbladder smith as well as the gallbladder mildly distended. Correlate with u pper quadrant ultrasound. Additionally there is likely cholelithiasis present. 3. Prostatomegaly, correlate with serum PSA.\Nonobstructing right renal calculus. No evidence for ob structive uropathy. 4. Small hiatal hernia. 5. Evidence of interstitial lung disease with possible early honeycombing in the right lung base. 6. Cardiomegaly with severe coronary artery atherosclerosis. [facility], , 07/23/2024 7:16 AM
[2024-07-23] MEDS: SODIUM CHLORIDE 0.9% 1,000 ML IV SCH (07:27)
[2024-07-23] MEDS: hydrALAZINE HCL 20 MG/ML 1 ML VIAL IVP STA (07:50)
[2024-07-23 08:05] LABS: Basophils % (A) 0 %; Eosinophils # (A) 0.1 k/uL (0-0.7); Eosinophils % (A) 1 %; HCT 36.5 % (39.0-53.0); HGB 12.7 gm/dL (13.0-17.5); Lymphocytes % (A) 8 %; MCH 30.9 pg (25.0-35.0); MCHC 34.7 g/dL (31.0-37.0); MCV 88.9 fL (80.0-100.0); Mean Platelet Volume 8.6; Monocytes # (A) 0.6 k/uL (0-1.0); Monocytes % (A) 5 %; Neutrophils # (A) 9.6 k/uL (1.3-7.7); Neutrophils % (A) 84 %; Platelet Count 187 k/uL (150-450); RDW 13.4 % (11.5-15.5); WBC 11.4 k/uL (3.8-10.6)
[2024-07-23 08:17] LABS: ALT 10 U/L (4-49); AST 26 U/L (17-59); African American GFR (CKD) 20 (>60 ml/min/1.73 sqM); Alkaline Phosphatase 85 U/L (38-126); Anion Gap 13 mmol/L; Blood Urea Nitrogen 41 mg/dL (9-20); Calcium 8.8 mg/dL (8.4-10.2); Carbon Dioxide 18 mmol/L (22-30); Chloride 112 mmol/L (98-107); Glucose 137 mg/dL (74-99); Non-African American GFR(CKD) 18 (>60 ml/min/1.73 sqM); Sodium 143 mmol/L (137-145); Total Bilirubin 0.8 mg/dL (0.2-1.3); Total Protein 7.9 g/dL (6.3-8.2)
--- NOTE | 2024-07-23 08:40 | US ---
EXAMINATION TYPE: US abd limited kidneys/bladder DATE OF EXAM: 07/23/2024 COMPARISON: CT CLINICAL INDICATION: Male, 89 years old with history of pain; Abnormal CT. Pain. TECHNIQUE: Grayscale and color Doppler imaging of the right upper quadrant including the kidneys and urinary bladder. FINDINGS: EXAM MEASUREMENTS: Liver Length: 18.7 cm Gallbladder Wall: 0.4 cm CBD: 0.8 cm Right Kidney: 11.7 x 5.3 x 5.5 cm Left Kidney: 12.2 x 5.8 x 5.8 cm Pancreas: Obscured by bowel gas Liver: Very limited. Enlarged in size. Left lobe not seen Gallbladder: Slight wall thickening. Possible gallstones seen. Enlarged in size. CBD: wnl Right Kidney: No hydronephrosis or masses seen Left Kidney: No hydronephrosis or masses seen Bladder: Anechoic Bilateral Jets not seen DAIRY CLERK NOTES: Very limited due to overlying bowel gas IMPRESSION: 1. Hepatomegaly correlate for underlying hepatocellular disease. 2. Cholelithiasis with mildly prominent gallbladder and borderline mild wall thickening. Correlate fo r cholecystitis. Distal CBD is prominent measuring 8 mm. Consider HIDA scan. [facility], , 07/23/2024 8:37 AM
[2024-07-23] MEDS ORDERED: NALOXONE 0.4 MG/ML 1 ML VIAL IV PRN (09:45)
[2024-07-23] MEDS: metroNIDAZOLE-NS PMX 500 MG in SALINE 1 100ML.BAG IVPB SCH (09:56)
--- NOTE | 2024-07-23 11:55 | P.GSCN ---
History of Present Illness Consult date: 07/23/24 History of present illness: CHIEF COMPLAINT: Abdominal pain HISTORY OF PRESENT ILLNESS: This is a 89-year-old male who was a transfer from [facility] for abdominal pain. Patient's abdominal pain started yesterday. He had initially gone to [facility] having an x-ray showing possibility of free air. Patient had been reporting pain in the upper stomach. Patient had a CT scan abdomen pelvis with no evidence of free air. Did report prominence of gallbladder wall and gallbladder mildly distended evidence of interstitial lung disease and cardiomegaly with severe coronary artery arthrosclerosis. Abdominal ultrasound reported cholelithiasis with mildly prominent gallbladder and borderline wall thickening correlate for cholecystitis. Patient has no prior abdominal surgical history. Patient did have elevated blood pressure on admission mildly tachycardic. Patient's reports that patient is not on any blood thinners. Patient seen and examined with Dr. Wells PAST MEDICAL HISTORY: Coronary Artery Disease (CAD), Eye Disorder, Hyperlipidemia, Hypertension, Prostate Disorder, Sleep Apnea/CPAP/BIPAP PAST SURGICAL HISTORY: Heart catheterization with stent, jodee cataract, hemmoroidectomy, MEDICATIONS: See below ALLERGIES: See below SOCIAL HISTORY: No illicit drug use. REVIEW OF SYSTEMS: CONSTITUTIONAL: Denies fever or chills. HEENT: Denies blurred vision, vision changes, or eye pain. Denies hemoptysis CARDIOVASCULAR: Denies chest pain or pressure. RESPIRATORY: No shortness of breath. GASTROINTESTINAL: See HPI for pertinent findings HEMATOLOGIC: Denies bleeding disorders. GENITOURINARY: Denies any blood in urine or increased urinary frequency. SKIN: Denies pruitis. Denies rash. PHYSICAL EXAM: VITAL SIGNS: Reviewed GENERAL: Well-developed in no acute distress. HEENT: No sclera icterus. Extraocular movements grossly intact. Moist buccal mucosa. Head is atraumatic, normocephalic. No nasal drainage. ABDOMEN: Soft. Nondistended. Nontender NEUROLOGIC: Patient is sleepy during exam. Received pain medications. LABORATORY DATA: WBC 11.4 Hgb 12.7 platelets 187 Sodium 143 potassium 4.0 creatinine 3.00 Lactic acid 1.0 LFTs normal IMAGING: CT scan abdomen pelvis reports no free air in the abdomen. Prominence of gallbladder wall as well as gallbladder mildly distended. Prostamegaly. Small hiatal hernia. Evidence of interstitial lung disease with possible early honeycombing in the right lung base. Cardiomegaly with severe coronary artery arthrosclerosis. Abdominal ultrasound reports hepatomegaly correlate for underlying hepatocellular disease. Cholelithiasis with mildly prominent gallbladder and borderline mild wall thickening. Correlate for cholecystitis. distal CBD is prominent measuring 8 mm ASSESSMENT: 1. Acute cholecystitis. Ultrasound reporting cholelithiasis with mildly prom inent gallbladder and borderline wall thickening 2. Acute kidney injury PLAN: -Patient scheduled for laparoscopic cholecystectomy tomorrow with Dr. Wells -Continue antibiotics -Low-fat diet today -N.p.o. after midnight -Preop EKG ordered -Nephrology management of acute kidney injury Physician Conference Assistant note has been reviewed by physician. Signing provider agrees with the documented findings, assessment, and plan of care. Past Medical History Past Medical History: Coronary Artery Disease (CAD), Eye Disorder, Hyperlipidemia, Hypertension, Prostate Disorder, Sleep Apnea/CPAP/BIPAP Additional Past Medical History / Comment(s): states not currently taking HTN meds, glaucoma, blind left eye History of Any Multi-Drug Resistant Organisms: None Reported Past Surgical History: Heart Catheterization With Stent Additional Past Surgical History / Comment(s): jodee cataract, hemmoroidectomy, one cardiac stent Past Anesthesia/Blood Transfusion Reactions: No Reported Reaction Date of Last Stent Placement:: 2007 Past Psychological History: No Psychological Hx Reported Smoking Status: Former smoker Past Alcohol Use History: Rare Past Drug Use History: None Reported Medications and Allergies Home Medications Medication Instructions Recorded Confirmed Type Atorvastatin [Lipitor] 40 mg PO DAILY 05/03/21 07/23/24 History Latanoprost Ophth [Xalatan 0.005%] 1 drop BOTH EYES HS 05/03/21 07/23/24 History Losartan Potassium 50 mg PO DAILY 05/03/21 07/23/24 History traZODone HCL [Desyrel] 100 mg PO HS 05/03/21 07/23/24 History Brimonidine Tartrate [Alphagan P 1 drop BOTH EYES BID 07/23/24 07/23/24 History 0.2% Ophth Soln] Dorzolamide-Timol 2.23%/0.68% 1 drop BOTH EYES BID 07/23/24 07/23/24 History [Cosopt] Ferrous Sulfate [Feosol] 325 mg PO DAILY 07/23/24 07/23/24 History Furosemide [Lasix] 20 mg PO DAILY 07/23/24 07/23/24 History Omeprazole [PriLOSEC] 20 mg PO DAILY 07/23/24 07/23/24 History Ondansetron [Zofran] 4 mg PO Q8HR PRN 07/23/24 07/23/24 History Tamsulosin [Flomax] 0.4 mg PO DAILY 07/23/24 07/23/24 History polyethylene glycoL 3350 [Miralax] 17 gm PO DAILY 07/23/24 07/23/24 History tadalafiL [Cialis] 20 mg PO DAILY PRN 07/23/24 07/23/24 History Allergies Allergy/AdvReac Type Severity Reaction Status Date / Time Penicillins Allergy Rash/Hives Verified 07/23/24 06:17 Surgical - Exam Vital Signs Temp Pulse Resp BP Pulse Ox 97.6 F 78 18 206/96 98 07/23/24 06:04 07/23/24 06:04 07/23/24 06:04 07/23/24 06:04 07/23/24 06:04 Results - Labs 07/23/24 07:31 07/23/24 07:31 Abnormal Lab Results - Last 24 Hours (Table) 07/23/24 07/23/24 Range/Units 07:31 07:31 WBC 11.4 H (3.8-10.6) k/uL RBC 4.10 L (4.30-5.90) m/uL Hgb 12.7 L (13.0-17.5) gm/dL Hct 36.5 L (39.0-53.0) % Neutrophils # 9.6 H (1.3-7.7) k/uL Chloride 112 H (98-107) mmol/L Carbon Dioxide 18 L (22-30) mmol/L BUN 41 H (9-20) mg/dL Creatinine 3.00 H (0.66-1.25) mg/dL Glucose 137 H (74-99) mg/dL Diabetes panel 07/23/24 Range/Units 07:31 Sodium 143 (137-145) mmol/L Potassium 4.0 (3.5-5.1) mmol/L Chloride 112 H (98-107) mmol/L Carbon Dioxide 18 L (22-30) mmol/L BUN 41 H (9-20) mg/dL Creatinine 3.00 H (0.66-1.25) mg/dL Glucose 137 H (74-99) mg/dL Calcium 8.8 (8.4-10.2) mg/dL AST 26 (17-59) U/L ALT 10 (4-49) U/L Alkaline Phosphatase 85 (38-126) U/L Total Protein 7.9 (6.3-8.2) g/dL Albumin 4.0 (3.5-5.0) g/dL Calcium panel 07/23/24 Range/Units 07:31 Calcium 8.8 (8.4-10.2) mg/dL Albumin 4.0 (3.5-5.0) g/dL Pituitary panel 07/23/24 Range/Units 07:31 Sodium 143 (137-145) mmol/L Potassium 4.0 (3.5-5.1) mmol/L Chloride 112 H (98-107) mmol/L Carbon Dioxide 18 L (22-30) mmol/L BUN 41 H (9-20) mg/dL Creatinine 3.00 H (0.66-1.25) mg/dL Glucose 137 H (74-99) mg/dL Calcium 8.8 (8.4-10.2) mg/dL Adrenal panel 07/23/24 Range/Units 07:31 Sodium 143 (137-145) mmol/L Potassium 4.0 (3.5-5.1) mmol/L Chloride 112 H (98-107) mmol/L Carbon Dioxide 18 L (22-30) mmol/L BUN 41 H (9-20) mg/dL Creatinine 3.00 H (0.66-1.25) mg/dL Glucose 137 H (74-99) mg/dL Calcium 8.8 (8.4-10.2) mg/dL Total Bilirubin 0.8 (0.2-1.3) mg/dL AST 26 (17-59) U/L ALT 10 (4-49) U/L Alkaline Phosphatase 85 (38-126) U/L Total Protein 7.9 (6.3-8.2) g/dL Albumin 4.0 (3.5-5.0) g/dL
[2024-07-24 04:47] LABS: Basophils % (A) 0 %; Eosinophils % (A) 0 %; HCT 34.4 % (39.0-53.0); HGB 11.7 gm/dL (13.0-17.5); Lymphocytes # (A) 1.5 k/uL (1.0-4.8); Lymphocytes % (A) 10 %; MCH 30.2 pg (25.0-35.0); MCHC 34.1 g/dL (31.0-37.0); MCV 88.4 fL (80.0-100.0); Mean Platelet Volume 8.5; Monocytes # (A) 1.3 k/uL (0-1.0); Monocytes % (A) 8 %; Neutrophils # (A) 12.5 k/uL (1.3-7.7); Neutrophils % (A) 80 %; Platelet Count 185 k/uL (150-450); RBC 3.88 m/uL (4.30-5.90); RDW 13.5 % (11.5-15.5); WBC 15.6 k/uL (3.8-10.6)
[2024-07-24 04:59] LABS: ALT 8 U/L (4-49); AST 25 U/L (17-59); African American GFR (CKD) 22 (>60 ml/min/1.73 sqM); Albumin 3.4 g/dL (3.5-5.0); Alkaline Phosphatase 78 U/L (38-126); Anion Gap 10 mmol/L; Blood Urea Nitrogen 36 mg/dL (9-20); Calcium 8.3 mg/dL (8.4-10.2); Carbon Dioxide 21 mmol/L (22-30); Chloride 112 mmol/L (98-107); Globulin 3.4 g/dL; Glucose 108 mg/dL (74-99); Non-African American GFR(CKD) 19 (>60 ml/min/1.73 sqM); Potassium 3.6 mmol/L (3.5-5.1); Sodium 143 mmol/L (137-145); Total Protein 6.8 g/dL (6.3-8.2)
[2024-07-24] MEDS: DEXAMETHASONE SOD PHOSPHATE 4 MG/ML 1 ML VIAL IV ONE (07:25)
[2024-07-24] MEDS: LACTATED RINGERS 1,000 ML IV SCH (10:46)
[2024-07-24] MEDS: IV FLUID CONTINUATION 1,000 ML IV ONE (11:38)
--- NOTE | 2024-07-24 11:41 | P.NPCON ---
History of Present Illness - Reason for Consult Consult date: 07/24/24 Requesting physician: Haile Mendoza - History of Present Illness Patient is a 89 year old male with PMH of BPH, hypertension, hyperlipidemia, CAD was transferred to the ED here from [facility] for abdominal pain and possibility of free air. His upper abdominal pain started 2 days ago, 9/10 severity, along with vomiting. Patient seen today in renal consultation for acute kideny injury. His creatinine was 2.86. Unknown baseline . Home meds include losartan and furosemide. Denies regular use of NSAIDs .CT abdomen shows prostatomegaly with non obstructing right renal calculus. No urinary symptoms today. No prior history of kidney disease. No hypotension noted. BP was high in the ED 209/69. Past Medical History Past Medical History: Coronary Artery Disease (CAD), Eye Disorder, Hyperlipidemia, Hypertension, Prostate Disorder, Sleep Apnea/CPAP/BIPAP Additional Past Medical History / Comment(s): states not currently taking HTN meds, glaucoma, blind left eye History of Any Multi-Drug Resistant Organisms: None Reported Past Surgical History: Heart Catheterization With Stent Additional Past Surgical History / Comment(s): jodee cataract, hemmoroidectomy, one cardiac stent Past Anesthesia/Blood Transfusion Reactions: No Reported Reaction Date of Last Stent Placement:: 2007 Past Psychological History: No Psychological Hx Reported Smoking Status: Former smoker Past Alcohol Use History: Rare Past Drug Use History: None Reported Medications and Allergies Home Medications Medication Instructions Recorded Confirmed Type Atorvastatin [Lipitor] 40 mg PO DAILY 05/03/21 07/23/24 History Latanoprost Ophth [Xalatan 0.005%] 1 drop BOTH EYES HS 05/03/21 07/23/24 History Losartan Potassium 50 mg PO DAILY 05/03/21 07/23/24 History traZODone HCL [Desyrel] 100 mg PO HS 05/03/21 07/23/24 History Brimonidine Tartrate [Alphagan P 1 drop BOTH EYES BID 07/23/24 07/23/24 History 0.2% Ophth Soln] Dorzolamide-Timol 2.23%/0.68% 1 drop BOTH EYES BID 07/23/24 07/23/24 History [Cosopt] Ferrous Sulfate [Feosol] 325 mg PO DAILY 07/23/24 07/23/24 History Furosemide [Lasix] 20 mg PO DAILY 07/23/24 07/23/24 History Omeprazole [PriLOSEC] 20 mg PO DAILY 07/23/24 07/23/24 History Ondansetron [Zofran] 4 mg PO Q8HR PRN 07/23/24 07/23/24 History Tamsulosin [Flomax] 0.4 mg PO DAILY 07/23/24 07/23/24 History polyethylene glycoL 3350 [Miralax] 17 gm PO DAILY 07/23/24 07/23/24 History tadalafiL [Cialis] 20 mg PO DAILY PRN 07/23/24 07/23/24 History Allergies Allergy/AdvReac Type Severity Reaction Status Date / Time Penicillins Allergy Rash/Hives Verified 07/23/24 06:17 Physical Exam Vitals: Vital Signs Temp Pulse Pulse Resp BP BP Pulse Ox 07/24/24 07:40 84 17 07/24/24 07:05 100 F H 84 17 165/77 94 L 07/24/24 01:50 98.3 F 72 14 164/65 94 L 07/23/24 20:00 98.5 F 82 15 159/79 97 07/23/24 15:24 78 20 165/71 98 07/23/24 12:00 84 18 150/82 96 07/23/24 11:56 97.9 F 78 20 165/71 98 Intake and Output 07/23/24 07/24/24 07/24/24 22:59 06:59 14:59 Other: Voiding Method Toilet Toilet # Voids 2 2 General: nontoxic, no distress, appears at stated age,overweight, alert Derm: warm, dry, intact Cardiovascular: S1 S2 reg, no murmur Lungs: CTA bilateral, no rhonchi, no rales, no accessory muscle use Abdominal: soft, upper abdomen tender to palpation Extremities: no edema Results - Lab Results Most recent lab results Calcium 8.3 mg/dL (8.4-10.2) L 07/24/24 03:24 07/24/24 03:24 07/24/24 03:24 Assessment and Plan Assessment: 1. Acute kidney injury. most likely ATN. Nonoliguric. Creatinine on admission w as 3.0. Today creatinine 2.86. Baseline creatinine unknown. Non obstructing right renal calculus on CT abdomen. No evidence for obstructive uropathy. Losartan on hold. Maintained on IV fluids. 2. H/o of BPH. Prostatomegaly on CT of abdomen. Currently on tadalafil and tamsulosin.Follows up with urologist annually. 3. Hypertensive urgency, BP on admission 206/96. S/p hydralazine 10 mg IVP. Home med losartan held currently. 4. Non anion gap metabolic acidosis, secondary to KIMBERLY 5. Acute cholecystitis. Ultrasound reporting cholelithiasis with mildly prominent gallbladder and borderline wall thickening. Patient scheduled for laparoscopic cholecystectomy today. Currently NPO Plan: Currently on 0.9 normal saline at 100 ml/hr Continue to hold ARBs Add norvasc Check UA if not done at [place] Continue Flomax Repeat labs in am Avoid nephrotoxic agents Thank you for the consultation. We will continue to follow during the hospitalization. Agree with resident's findings, assessment and plan
[2024-07-24] MEDS: ONDANSETRON 4 MG/2 ML VIAL IVP PRN (11:54)
[2024-07-24] MEDS: LIDOCAINE 2%-EPI 1:100,000 20 ML VIAL SQ ONE ×2 (12:11→13:02)
[2024-07-24] MEDS ORDERED: KETOROLAC 15 MG/ML 1 ML VIAL ONE (12:26)
[2024-07-24] MEDS ORDERED: NEOSTIGMINE 1 MG/ML 10 ML VIAL ONE (12:26)
[2024-07-24] MEDS ORDERED: LIDOCAINE 1% INJ 10MG/ML (20 ML MDV) ONE (12:26)
[2024-07-24] MEDS ORDERED: LABETALOL 5 MG/ML VIAL MDV ONE (12:26)
[2024-07-24] MEDS ORDERED: PROPOFOL 10 MG/ML 20 ML VIAL IV ONE (12:26)
[2024-07-24] MEDS ORDERED: SUCCINYLCHOLINE CHLORIDE 200 MG/10 ML VIAL IV ONE (12:26)
[2024-07-24] MEDS ORDERED: LIDOCAINE 4% LTA KIT (4 ML) TOPICAL ONE (12:26)
[2024-07-24] MEDS ORDERED: ROCURONIUM 10 MG/ML (5 ML VIAL) IV ONE (12:26)
[2024-07-24] MEDS ORDERED: fentaNYL (PF) 50 MCG/ML 2 ML AMP ONE (12:26)
[2024-07-24] MEDS ORDERED: GLYCOPYRROLATE 0.2 MG/ML 2 ML VIAL ONE (12:26)
[2024-07-24] MEDS ORDERED: HYDROmorphone (PF) 1 MG/ML ONE (12:26)
[2024-07-24] MEDS: LACTATED RINGERS 1,000 ML IV ONE (13:09)
--- NOTE | 2024-07-24 13:26 | P.HPIM ---
History of Present Illness H&P Date: 07/24/24 Chief Complaint: Abdominal pain This is a pleasant 89-year-old patient, follows with Dr. Emanuel Hogan. Chronic stable medical conditions include CAD with stent over 20 years ago, hyperlipidemia, hypertension, glaucoma, blind in the left eye, prostate disorder. For for 2 days patient been having lower abdominal pain. Some nausea vomiting. Denied any fever and chills. CT scan in the ER showed gallbladder to be mildly distended and possibly some gallstones. Enlarged prostate. This morning patient is n.p.o. denies any cardiac symptoms. No respiratory symptoms. Patient had a stress test about a year ago that was negative. 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 . No smoking no alcohol Physical examination: VITAL SIGNS: 100, 84, 17, 165 x 77, 94% room air, GENERAL: BMI 27.4, laying bed awake not in distress. EYES: Pupils equal. Conjunctiva hailey l. HEENT: External appearance of nose and ears normal, oral cavity grossly normal. NECK: JVD not raised; masses not palpable. HEART: First and second heart sounds are normal; no edema. LUNGS: Respiratory rate normal; clear to auscultation. ABDOMEN: Soft, some lower abdominal tenderness, no guarding rigidity r, liver spleen not palpable, no masses palpable. PSYCH: Alert and oriented x3; mood and affect hailey l. MUSCULOSKELETAL:No Clubbing/cyanosis;muscles-grossly intact NEUROLOGICAL: Cranial nerves grossly intact; no facial asymmetry, power and sensation grossly intact. LYMPHATICS: No lymph nodes palpable in the axilla and neck INVESTIGATIONS, reviewed in the clinical context: July 24, 2024: White count 15.6 hemoglobin 9.7 platelets 185 sodium 143 potassium 3.6 BUN 36 creatinine 2.86 July 23: White count 9.4 hemoglobin 12.7 BUN 41 creatinine 3.[address] abdomen pelvis: No free air. Some gallbladder mildly distended. Possible gallstones. Prostatomegaly. Possible evidence of a history of interstitial lung disease. Cardiomegaly with some coronary artery atherosclerosis Abdominal ultrasound: Hepatomegaly. Gallstones. Mildly prominent gallbladder with borderline mild wall thickening. Distal CBD prominent 8 mm. EKG tracing personally reviewed by me-sinus rhythm. Nonspecific ST-T wave changes Assessment plan: -Acute cholecystitis with gallstones IV ceftriaxone. IV Flagyl. General surgery consulted. Patient n.p.o. -Hyperlipidemia Lipitor 40 mg a day -Glaucoma continue eyedrops -Essential hypertension Losartan 50 mg a day -GERD Prilosec 20 mg a day -BPH Flomax 0.4 mg a day -CAD with stent about 20 years ago. Had a stress test a year ago that was negative. Lipitor -Kidney injury, acute versus chronic Patient's last documented creatinine was 0.7 in April 2021. On admission 3. IV fluids. Hold Cozaar -Full code Patient is medically stable to proceed for surgery. Had a stress test a year ago that was negative. IV fluid. Labs. Discussed with patient. Consulted general surgery and nephrology Past Medical History Past Medical History: Coronary Artery Disease (CAD), Eye Disorder, Hyperlipidemia, Hypertension, Prostate Disorder, Sleep Apnea/CPAP/BIPAP Additional Past Medical History / Comment(s): states not currently taking HTN meds, glaucoma, blind left eye History of Any Multi-Drug Resistant Organisms: None Reported Past Surgical History: Heart Catheterization With Stent Additional Past Surgical History / Comment(s): jodee cataract, hemmoroidectomy, one cardiac stent Past Anesthesia/Blood Transfusion Reactions: No Reported Reaction Date of Last Stent Placement:: 2007 Past Psychological History: No Psychological Hx Reported Smoking Status: Former smoker Past Alcohol Use History: Rare Past Drug Use History: None Reported Medications and Allergies Home Medications Medication Instructions Recorded Confirmed Type Atorvastatin [Lipitor] 40 mg PO DAILY 05/03/21 07/23/24 History Latanoprost Ophth [Xalatan 0.005%] 1 drop BOTH EYES HS 05/03/21 07/23/24 History Losartan Potassium 50 mg PO DAILY 05/03/21 07/23/24 History traZODone HCL [Desyrel] 100 mg PO HS 05/03/21 07/23/24 History Brimonidine Tartrate [Alphagan P 1 drop BOTH EYES BID 07/23/24 07/23/24 History 0.2% Ophth Soln] Dorzolamide-Timol 2.23%/0.68% 1 drop BOTH EYES BID 07/23/24 07/23/24 History [Cosopt] Ferrous Sulfate [Feosol] 325 mg PO DAILY 07/23/24 07/23/24 History Furosemide [Lasix] 20 mg PO DAILY 07/23/24 07/23/24 History Omeprazole [PriLOSEC] 20 mg PO DAILY 07/23/24 07/23/24 History Ondansetron [Zofran] 4 mg PO Q8HR PRN 07/23/24 07/23/24 History Tamsulosin [Flomax] 0.4 mg PO DAILY 07/23/24 07/23/24 History polyethylene glycoL 3350 [Miralax] 17 gm PO DAILY 07/23/24 07/23/24 History tadalafiL [Cialis] 20 mg PO DAILY PRN 07/23/24 07/23/24 History Allergies Allergy/AdvReac Type Severity Reaction Status Date / Time Penicillins Allergy Rash/Hives Verified 07/23/24 06:17 Physical Exam Vitals: Vital Signs Temp Pulse Pulse Resp BP BP Pulse Ox 07/24/24 07:40 84 17 07/24/24 07:05 100 F H 84 17 165/77 94 L 07/24/24 01:50 98.3 F 72 14 164/65 94 L 07/23/24 20:00 98.5 F 82 15 159/79 97 07/23/24 15:24 78 20 165/71 98 07/23/24 12:00 84 18 150/82 96 07/23/24 11:56 97.9 F 78 20 165/71 98 Intake and Output 07/23/24 07/24/24 07/24/24 22:59 06:59 14:59 Other: Voiding Method Toilet Toilet # Voids 2 2 Results CBC & Chem 7: 07/24/24 03:24 07/24/24 03:24 Labs: Abnormal Lab Results - Last 24 Hours (Table) 07/24/24 07/24/24 Range/Units 03:24 03:24 WBC 15.6 H (3.8-10.6) k/uL RBC 3.88 L (4.30-5.90) m/uL Hgb 11.7 L (13.0-17.5) gm/dL Hct 34.4 L (39.0-53.0) % Neutrophils # 12.5 H (1.3-7.7) k/uL Monocytes # 1.3 H (0-1.0) k/uL Chloride 112 H (98-107) mmol/L Carbon Dioxide 21 L (22-30) mmol/L BUN 36 H (9-20) mg/dL Creatinine 2.86 H (0.66-1.25) mg/dL Glucose 108 H (74-99) mg/dL Calcium 8.3 L (8.4-10.2) mg/dL Albumin 3.4 L (3.5-5.0) g/dL Thrombosis Risk Factor Assmnt - Choose All That Apply Any of the Below Risk Factors Present?: Yes Each Factor Represents 1 point: Obesity (BMI >25) Each Risk Factor Represents 3 Points: Age 75 years or older Other congenital or acquired thrombophilia - If yes, enter type in comment: No Thrombosis Risk Factor Assessment Total Risk Factor Score: 4 Thrombosis Risk Factor Assessment Level: Moderate Risk
--- NOTE | 2024-07-24 13:35 | P.OP ---
Date of Procedure: 07/24/24 Preoperative Diagnosis: Cholecystitis Postoperative Diagnosis: Cholecystitis gangrenous Procedure(s) Performed: Laparoscopic cholecystectomy Anesthesia: VICTORIANO Surgeon: Partha Wells Estimated Blood Loss (ml): 5 Pathology: other (Gallbladder) Condition: stable Disposition: PACU Description of Procedure: The patient was placed on the operating table. The patient received a general endotracheal tube anesthesia. The patients abdomen was prepped and draped in the usual sterile fashion. Through an infraumbilical stab incision, the fascia of the anterior abdominal wall was grasped with a pair of Kochers and then the Veress needle was placed in the peritoneal cavity. Position of the Veress needle was confirmed with positive drop test. The abdomen was then insufflated. After adequate insufflation, the 10 mm trocar was placed in the peritoneal cavity. Following this the laparoscope was placed in the peritoneal cavity. The patient was placed in the head-up, right side up position and then a 5 mm trocar was placed in the right lateral and right subcostal posi tion under direct visualization. A 8 mm trocar was placed in the epigastric position. Gallbladder is visualized. The gallbladder appeared to be necrotic. The gallbladder was aspirated. The gallbladder was grasped in the fundus and infundibulum. Traction on the gallbladder was placed in the lateral and the cephalad positions. The triangle of Calot was visualized.. The cystic duct was bluntly dissected until the union of the cystic duct and common bile duct was seen. A critical view of safety was achieved. The cystic duct was then divided and sealed with the Harmonic scissors. A PDS Endoloop was then placed throughout the cystic duct stump. The cystic artery divided and sealed with the Harmonic scissors. The gallbladder was then removed from the liver bed using Harmonic scissors. The gallbladder was then extracted through the epigastric port site. Operative field was checked for any bleeding spots and Harmonic scissors was used to coagulate the liver bed. The abdomen was irrigated. The trocars were removed. The skin was closed using interrupted 3-0 Vicryl suture. Dermabond dressing were applied. The patient tolerated the procedure well.
[2024-07-24] MEDS: DORZOLAMIDE-TIMOLOL 2.23%/0.68 10ML BTL BOTH EYES SCH (16:01)
[2024-07-24] MEDS: BRIMONIDINE TARTRATE 0.2% DROPS 5 ML BTL BOTH EYES SCH (16:01)
[2024-07-24] MEDS: PANTOPRAZOLE 40 MG TABLET PO SCH (16:01)
[2024-07-24] MEDS: ATORVASTATIN 40 MG TAB PO SCH (16:10)
[2024-07-24] MEDS: TAMSULOSIN 0.4 MG CAP.ER.24H PO SCH (16:10)
[2024-07-24] MEDS: ENOXAPARIN 40 MG/0.4 ML SYRINGE SQ SCH (16:32)
[2024-07-24] MEDS: LOSARTAN 50 MG TAB PO SCH (16:32)
[2024-07-24] MEDS: LATANOPROST 0.005% OPHTH DROPS 2.5 ML BTL BOTH EYES SCH (21:59)
[2024-07-24] MEDS: traZODone HCL 100 MG TAB PO SCH (22:00)
[2024-07-24] MEDS: HYDROmorphone 0.5 MG/0.5 ML SYRINGE IVP PRN (22:17)
[2024-07-24 22:46] LABS: Appearance,Urine Clear (Clear); Bacteria,Urine Rare /hpf; Bilirubin,Urine Negative (Negative); Blood,Urine Small (Negative); Budding Yeast,Urine Rare /hpf; Color,Urine Light Yellow; Glucose,Urine (UA) 1+ (Negative); Granular Casts,Urine 3 /lpf (0); Ketones,Urine Negative (Negative); Leukocyte Esterase,Urine Negative (Negative); Mucus,Urine Rare /hpf; Nitrite,Urine Negative (Negative); Protein,Urine 1+ (Negative); RBC,Urine 4 /hpf (0-5); Specific Gravity,Urine 1.014 (1.001-1.035); Squamous Epithelial Cell,Urine <1 /hpf (0-4); Urobilinogen,Urine <2.0 mg/dL (<2.0); WBC,Urine 9 /hpf (0-5)
[2024-07-25 04:43] LABS: African American GFR (CKD) 18 (>60 ml/min/1.73 sqM); Anion Gap 7 mmol/L; Blood Urea Nitrogen 48 mg/dL (9-20); Calcium 7.6 mg/dL (8.4-10.2); Carbon Dioxide 18 mmol/L (22-30); Chloride 112 mmol/L (98-107); Glucose 151 mg/dL (74-99); Non-African American GFR(CKD) 16 (>60 ml/min/1.73 sqM); Potassium 3.9 mmol/L (3.5-5.1); Sodium 137 mmol/L (137-145)
[2024-07-25 06:15] LABS: Glucose,Whole Blood 134 mg/dL (70-110)
[2024-07-25] MEDS: amLODIPine 5 MG TAB PO SCH (07:52)
[2024-07-25] MEDS: ENOXAPARIN 30 MG/0.3 ML SYRINGE SQ SCH (09:52)
[2024-07-25] MEDS: HYDROcodone/APAP 5-325MG 1 EACH TAB PO PRN (09:52)
[2024-07-25] MEDS: FERROUS SULFATE 325 MG TAB PO SCH (09:52)
--- NOTE | 2024-07-25 10:01 | P.PN ---
Subjective Progress Note Date: 07/25/24 Principal diagnosis: Acute kidney injury Hospital course: Patient is a 89 year old male with PMH of BPH, hypertension, hyperlipidemia, CAD was transferred to the ED here from [facility] for abdominal pain and possibility of free air. His upper abdominal pain started 2 days ago, 9/10 severity, along with vomiting. Patient seen today in renal consultation for acute kideny injury. His creatinine was 2.86. Unknown baseline . Home meds include losartan and furosemide. Denies regular use of NSAIDs .CT abdomen shows prostatomegaly with non obstructing right renal calculus. No urinary symptoms today. No prior history of kidney disease. No hypotension noted. BP was high in the ED 209/69. 07/25/2024 Patient seen today. He mentions doing well after the surgery, denies abdominal pain. Labs today show bicarb 18, BUN 48, creatinine 3.32. UA shows 1+ protein, 1+ glucose, small blood, 9 WBC and 3 granular casts. Objective - Vital Signs Vital signs: Vital Signs Temp 98.2 F 07/25/24 06:45 Pulse 82 07/25/24 06:45 Resp 18 07/25/24 06:45 BP 103/50 07/25/24 06:45 Pulse Ox 93 L 07/25/24 06:45 FiO2 Intake & Output 07/24/24 07/25/24 07/25/24 18:59 06:59 18:59 Intake Total 1500 Output Total 25 1400 Balance 1475 -1400 Intake: IV 1500 Output: Urine 700 Straight 700 Post Void Residual 700 Estimated Blood Loss 25 Other: Voiding Method Toilet # Voids 1 - Exam General: nontoxic, no distress, appears at stated age,overweight, alert Derm: warm, dry, intact Cardiovascular: S1 S2 reg, no murmur Lungs: CTA bilateral, no accessory muscle use Abdominal: soft, upper abdomen tender to palpation Extremities: no edema - Labs CBC & Chem 7: 07/26/24 03:13 07/26/24 03:13 Labs: Abnormal Lab Results - Last 24 Hours (Table) 07/24/24 07/25/24 07/25/24 Range/Units 22:05 03:53 06:14 Chloride 112 H (98-107) mmol/L Carbon Dioxide 18 L (22-30) mmol/L BUN 48 H (9-20) mg/dL Creatinine 3.32 H (0.66-1.25) mg/dL Glucose 151 H (74-99) mg/dL POC Glucose (mg/dL) 134 H (70-110) mg/dL Calcium 7.6 L (8.4-10.2) mg/dL Urine Protein 1+ H (Negative) Urine Glucose (UA) 1+ H (Negative) Urine Blood Small H (Negative) Urine WBC 9 H (0-5) /hpf Urine WBC Clumps Rare H (None) /hpf Urine Bacteria Rare H (None) /hpf Urine Mucus Rare H (None) /hpf Urine Yeast (Budding) Rare H (None) /hpf Assessment and Plan Assessment: 1. Acute kidney injury. most likely ATN. Nonoliguric. Creatinine at [facility] 3.68, on admission 3.0. Today creatinine 3.32. Baseline creatinine unknown. Non obstructing right renal calculus on CT abdomen. No evidence for obstructive uropathy. Losartan on hold. Maintained on IV fluids. 2. H/o of BPH. Prostatomegaly on CT of abdomen. Currently on tadalafil and tamsulosin. Follows up with urologist annually. 3. Hypertensive urgency, BP on admission 206/96. S/p hydralazine 10 mg IVP. Home med losartan held currently. Currently maintained on amlodipine. 4. Non anion gap metabolic acidosis, secondary to KIMBERLY 5. Acute cholecystitis. Ultrasound reporting cholelithiasis with mildly prominent gallbladder and borderline wall thickening. Patient underwent laparoscopic cholecystectomy 07/24/24. Plan: Continue 0.9 normal saline at 100 ml/hr Add parameters for amlodipine Check Serologies Continue to hold ARBs Continue Flomax Repeat labs in am Avoid nephrotoxic agents. Agree with resident's findings assessment and plan.
--- NOTE | 2024-07-25 13:33 | P.PN ---
Subjective Progress Note Date: 07/25/24 CHIEF COMPLAINT: Gangrenous cholecystitis HISTORY OF PRESENT ILLNESS: Patient is postop day #1 status post laparoscopic cholecystectomy. Patient's pain is controlled. He did have nausea earlier this morning now improved. He denies any flatus. Patient was straight cath during the night. Afebrile. Patient had lower blood pressure during the night. BP this morning better at 103/50. No CBC done today PHYSICAL EXAM: VITAL SIGNS: Reviewed. GENERAL: Well-developed in no acute distress. HEENT: No sclera icterus. Extraocular movements grossly intact. Moist buccal mucosa. Head is atraumatic, normocephalic. ABDOMEN: Soft. Nondistended. Incision sites clean dry and intact NEUROLOGIC: Alert and oriented. Cranial nerves II through XII grossly intact. ASSESSMENT: 1. Gangrenous cholecystitis PLAN: -Patient can be discharged from surgical standpoint when medically cleared -Continue antibiotics -Continue regular diet -Acute kidney injury management per nephrology -Encourage patient to increase activity level -Continue Flomax for urinary retention [employer] Instructor note has been reviewed by physician. Signing provider agrees with the documented findings, assessment, and plan of care. Objective - Vital Signs Vital signs: Vital Signs Temp 98.2 F 07/25/24 06:45 Pulse 82 07/25/24 08:00 Resp 18 07/25/24 08:00 BP 103/50 07/25/24 06:45 Pulse Ox 93 L 07/25/24 06:45 FiO2 Intake & Output 07/24/24 07/25/24 07/25/24 18:59 06:59 18:59 Intake Total 1500 Output Total 25 1400 Balance 1475 -1400 Intake: IV 1500 Output: Urine 700 Straight 700 Post Void Residual 700 Estimated Blood Loss 25 Other: Voiding Method Toilet Toilet # Voids 1 1 - Labs CBC & Chem 7: 07/24/24 03:24 07/25/24 03:53 Labs: Abnormal Lab Results - Last 24 Hours (Table) 07/24/24 07/25/24 07/25/24 Range/Units 22:05 03:53 06:14 Chloride 112 H (98-107) mmol/L Carbon Dioxide 18 L (22-30) mmol/L BUN 48 H (9-20) mg/dL Creatinine 3.32 H (0.66-1.25) mg/dL Glucose 151 H (74-99) mg/dL POC Glucose (mg/dL) 134 H (70-110) mg/dL Calcium 7.6 L (8.4-10.2) mg/dL Urine Protein 1+ H (Negative) Urine Glucose (UA) 1+ H (Negative) Urine Blood Small H (Negative) Urine WBC 9 H (0-5) /hpf Urine WBC Clumps Rare H (None) /hpf Urine Bacteria Rare H (None) /hpf Urine Mucus Rare H (None) /hpf Urine Yeast (Budding) Rare H (None) /hpf
[2024-07-25] MEDS: SODIUM CHLORIDE 0.9% 1,000 ML IV ONE (14:42)
[2024-07-25 15:32] LABS: Complement C3 97.4 mg/dL (80.0-207.0)
[2024-07-25 15:44] LABS: Hepatitis B Surface Antigen Nonreactive (Nonreactive); Hepatitis C IgG Antibody Nonreactive (Nonreactive)
--- NOTE | 2024-07-25 16:52 | P.PN ---
Progress Note - Text Progress Note Date: 07/25/24 Chief Complaint: Abdominal pain This is a pleasant 89-year-old patient, follows with Dr. Emanuel Hogan. Chronic stable medical conditions include CAD with stent over 20 years ago, hyperlipidemia, hypertension, glaucoma, blind in the left eye, prostate disorder . For for 2 days patient been having lower abdominal pain. Some nausea vomiting. Denied any fever and chills. CT scan in the ER showed gallbladder to be mildly distended and possibly some gallstones. Enlarged prostate. This morning patient is n.p.o. denies any cardiac symptoms. No respiratory symptoms. Patient had a stress test about a year ago that was negative. July 25: Patient underwent laparoscopic cholecystectomy with Dr Wells. Found to have a gangrenous gallbladder. Still having some abdominal pain. On IV antibiotics. Tired. at the bedside. Placed on regular diet by surgery. Active Medications Hydrocodone Bitart/Acetaminophen (Hydrocodone/Apap 5-325mg 1 Each Tab) 1 each PO Q4HR PRN PRN Reason: Pain Last Admin: 07/25/24 09:52 Dose: 1 each Amlodipine Besylate (Amlodipine 5 Mg Tab) 5 mg PO DAILY [facility] Last Admin: 07/25/24 09:52 Dose: 5 mg Atorvastatin Calcium (Atorvastatin 40 Mg Tab) 40 mg PO DAILY [facility] Last Admin: 07/25/24 09:52 Dose: 40 mg Brimonidine Tartrate (Brimonidine Tartrate 0.2% Drops 5 Ml Btl) 1 drops BOTH EYES BID [facility] Last Admin: 07/25/24 09:54 Dose: 1 drops Dorzolamide/Timolol (Dorzolamide-Timolol 2.23%/0.68 10ml Btl) 1 drops BOTH EYES BID [facility] Last Admin: 07/25/24 09:54 Dose: 1 drops Enoxaparin Sodium (Enoxaparin 30 Mg/0.3 Ml Syringe) 30 mg SQ DAILY [facility] Last Admin: 07/25/24 09:52 Dose: 30 mg Ferrous Sulfate (Ferrous Sulfate 325 Mg Tab) 325 mg PO DAILY [facility] Last Admin: 07/25/24 09:52 Dose: 325 mg Hydromorphone HCl (Hydromorphone 0.5 Mg/0.5 Ml Syringe) 0.5 mg IVP Q3HR PRN PRN Reason: Moderate Pain (Scale 4 to 6) Last Admin: 07/24/24 22:17 Dose: 0.5 mg Sodium Chloride (Saline 0.9%) 1,000 mls @ 100 mls/hr IV .Q10H [facility] Last Admin: 07/25/24 10:52 Dose: 100 mls/hr Metronidazole 500 mg/ IV (Solution) 100 mls @ 100 mls/hr IVPB Q8HR [facility]; Protocol Last Admin: 07/25/24 16:13 Dose: 100 mls/hr Ceftriaxone Sodium 2 gm/ (Sodium Chloride) 50 mls @ 100 mls/hr IVPB Q24HR [facility]; Protocol Last Admin: 07/25/24 10:51 Dose: 100 mls/hr Lactated Ringer's (Lactated Ringers) 1,000 mls @ 20 mls/hr IV .Q24H [facility] Last Admin: 07/24/24 23:30 Dose: Not Given Latanoprost (Latanoprost 0.005% Ophth Drops 2.5 Ml Btl) 1 drops BOTH EYES HS [facility] Last Admin: 07/24/24 21:59 Dose: 1 drops Naloxone HCl (Naloxone 0.4 Mg/Ml 1 Ml Vial) 0.2 mg IV Q2M PRN PRN Reason: Opioid Reversal Ondansetron HCl (Ondansetron 4 Mg/2 Ml Vial) 4 mg IVP Q8HR PRN PRN Reason: Nausea And Vomiting Last Admin: 07/25/24 10:51 Dose: 4 mg Pantoprazole Sodium (Pantoprazole 40 Mg Tablet) 40 mg PO DAILY [facility] Last Admin: 07/25/24 09:52 Dose: 40 mg Tamsulosin HCl (Tamsulosin 0.4 Mg Cap.Er.24h) 0.4 mg PO DAILY [facility] Last Admin: 07/25/24 09:53 Dose: 0.4 mg Trazodone HCl (Trazodone Hcl 100 Mg Tab) 100 mg PO HS [facility] Last Admin: 07/24/24 22:00 Dose: 100 mg 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 . No smoking no alcohol Physical examination: VITAL SIGNS: 98.2, 82, 18, 103 x 50, 93% room air GENERAL: BMI 27.4, in bed, tired EYES: Pupils equal. Conjunctiva hailey l. HEENT: External appearance of nose and ears normal, oral cavity grossly normal. NECK: JVD not raised; masses not palpable. HEART: First and second heart sounds are normal; no edema. LUNGS: Respiratory rate normal; clear to auscultation. ABDOMEN: Soft, some l tenderness, no guarding rigidity , liver spleen not palpable, no masses palpable. PSYCH: Alert and oriented x3; mood and affect hailey l. MUSCULOSKELETAL:No Clubbing/cyanosis;muscles-grossly intact INVESTIGATIONS, reviewed in the clinical context: July 25: Sodium 137 potassium 3.9 BUN 48 creatinine 3.32 July 24, 2024: White count 15.6 hemoglobin 9.7 platelets 185 sodium 143 potassium 3.6 BUN 36 creatinine 2.86 July 23: White count 9.4 hemoglobin 12.7 BUN 41 creatinine 3.[address] abdomen pelvis: No free air. Some gallbladder mildly distended. Possible gallstones. Prostatomegaly. Possible evidence of a history of interstitial lung disease. Cardiomegaly with some coronary artery atherosclerosis Abdominal ultrasound: Hepatomegaly. Gallstones. Mildly prominent gallbladder with borderline mild wall thickening. Distal CBD prominent 8 mm. EKG tracing personally reviewed by me-sinus rhythm. Nonspecific ST-T wave changes Assessment plan: -Acute cholecystitis with gallstones on presentation. Laparoscopic cholecystectomy for gangrenous cholecystitis IV ceftriaxone. IV Flagyl. Being followed by Dr Wells. Advance to regular diet by surgery -Hyperlipidemia Lipitor 40 mg a day -Glaucoma continue eyedrops -Essential hypertension Losartan 50 mg a day -GERD Prilosec 20 mg a day -BPH Flomax 0.4 mg a day -CAD with stent about 20 years ago. Had a stress test a year ago that was negative. Lipitor -Kidney injury, acute versus chronic: Some worsening Patient's last documented creatinine was 0.7 in April 2021. On admission 3. IV fluids. Hold Cozaar Repeat labs -Full code Discussed with patient . Patient too tired to go home currently. Some worsening of renal function. Repeat labs in the morning. Strict I's and O's. Increase activity. Past Medical History Past Medical History: Coronary Artery Disease (CAD), Eye Disorder, Hyperlipidemia, Hypertension, Prostate Disorder, Sleep Apnea/CPAP/BIPAP Additional Past Medical History / Comment(s): states not currently taking HTN meds, glaucoma, blind left eye History of Any Multi-Drug Resistant Organisms: None Reported Past Surgical History: Heart Catheterization With Stent Additional Past Surgical History / Comment(s): jodee cataract, hemmoroidectomy, one cardiac stent Past Anesthesia/Blood Transfusion Reactions: No Reported Reaction Date of Last Stent Placement:: 2007 Past Psychological History: No Psychological Hx Reported Smoking Status: Former smoker Past Alcohol Use History: Rare Past Drug Use History: None Reported
[2024-07-25 17:17] LABS: Hepatitis B Surface AB- Quant 3.5 mIU/mL
[2024-07-25 17:43] LABS: Anti-DNA, DS unit <1.0 IU/mL; DNA Double-Stranded Negative (Negative)
[2024-07-26 03:27] LABS: Basophils % (A) 0 %; Eosinophils % (A) 0 %; HCT 21.5 % (39.0-53.0); Lymphocytes # (A) 1.4 k/uL (1.0-4.8); Lymphocytes % (A) 11 %; MCH 30.3 pg (25.0-35.0); MCV 89.2 fL (80.0-100.0); Mean Platelet Volume 9.4; Monocytes # (A) 0.8 k/uL (0-1.0); Monocytes % (A) 6 %; Neutrophils # (A) 10.7 k/uL (1.3-7.7); Neutrophils % (A) 80 %; Platelet Count 191 k/uL (150-450); RBC 2.41 m/uL (4.30-5.90); RDW 13.7 % (11.5-15.5); WBC 13.3 k/uL (3.8-10.6)
[2024-07-26 03:37] LABS: HGB 7.3 gm/dL (13.0-17.5)
[2024-07-26 03:40] LABS: ALT 407 U/L (4-49); AST 721 U/L (17-59); African American GFR (CKD) 16 (>60 ml/min/1.73 sqM); Albumin 2.5 g/dL (3.5-5.0); Albumin/Globulin Ratio 0.9; Alkaline Phosphatase 77 U/L (38-126); Anion Gap 7 mmol/L; Blood Urea Nitrogen 79 mg/dL (9-20); Calcium 7.3 mg/dL (8.4-10.2); Carbon Dioxide 17 mmol/L (22-30); Chloride 113 mmol/L (98-107); Globulin 2.8 g/dL; Glucose 133 mg/dL (74-99); Non-African American GFR(CKD) 14 (>60 ml/min/1.73 sqM); Potassium 3.6 mmol/L (3.5-5.1); Sodium 137 mmol/L (137-145); Total Bilirubin 0.6 mg/dL (0.2-1.3); Total Protein 5.3 g/dL (6.3-8.2)
[2024-07-26] MEDS: CALCIUM CARBONATE 500 MG CHEWABLE PO PRN (09:18)
[2024-07-26] MEDS: PANTOPRAZOLE 40 MG/10 ML VIAL IVP SCH (09:19)
--- NOTE | 2024-07-26 09:37 | P.PN ---
Subjective Progress Note Date: 07/26/24 Patient had complaints of nausea yesterday. He vomited last night. His stat labs show a hemoglobin of 7.3. His pathology showed acute gangrenous cholecystitis. Patient received 1 unit packed red cells last night. Patient states he feels better this morning. On exam vital signs appear stable. Abdomen is soft. Incision sites are clean dry intact. Status post laparoscopic cholecystectomy for acute gangrenous cholecystitis. Patient will continue receive supportive care. He will be placed on clear liquids today. Objective - Vital Signs Vital signs: Vital Signs Temp 98.6 F 07/26/24 08:58 Pulse 98 07/26/24 08:58 Resp 24 07/26/24 08:58 BP 129/64 07/26/24 08:58 Pulse Ox 97 07/26/24 08:58 FiO2 Intake & Output 07/25/24 07/26/24 07/26/24 18:59 06:59 18:59 Intake Total 0 310 Balance 0 310 Intake: Blood Product 0 310 Rc As-1 Unit 0 310 [id number] Other: Voiding Method Toilet # Voids 1 1 - Labs CBC & Chem 7: 07/26/24 03:13 07/26/24 03:13 Labs: Abnormal Lab Results - Last 24 Hours (Table) 07/26/24 07/26/24 07/26/24 Range/Units 03:13 03:13 04:25 WBC 13.3 H (3.8-10.6) k/uL RBC 2.41 L (4.30-5.90) m/uL Hgb 7.3 L D (13.0-17.5) gm/dL Hct 21.5 L (39.0-53.0) % Neutrophils # 10.7 H (1.3-7.7) k/uL Chloride 113 H (98-107) mmol/L Carbon Dioxide 17 L (22-30) mmol/L BUN 79 H (9-20) mg/dL Creatinine 3.64 H (0.66-1.25) mg/dL Glucose 133 H (74-99) mg/dL Calcium 7.3 L (8.4-10.2) mg/dL AST 721 H (17-59) U/L ALT 407 H (4-49) U/L Total Protein 5.3 L (6.3-8.2) g/dL Albumin 2.5 L (3.5-5.0) g/dL Crossmatch See Detail
[2024-07-26] MEDS: SODIUM CHLORIDE 0.9% 1,000 ML IV ONE (11:29)
[2024-07-26] MEDS: METOCLOPRAMIDE 5 MG/ML 2 ML VIAL IVP SCH (11:33)
[2024-07-26] MEDS: DEXTROSE 5% IN WATER 1,000 ML with SODIUM BICARB (1 MEQ/ML) 150 ML IV SCH (12:42)
--- NOTE | 2024-07-26 12:54 | P.PN ---
Subjective patient is seen for follow-up for acute kidney injury. Status post cholecystectomy on 07/24/2024. Renal function has worsened with serum creatinine at 3.6 today. Patient has had elevated post void residuals. Montgomery catheter will be placed today. Status post 1 L fluid bolus yesterday. Currently not on IV fluids. Objective - Vital Signs Vital signs: Vital Signs Temp 98.6 F 07/26/24 08:58 Pulse 98 07/26/24 08:58 Resp 24 07/26/24 08:58 BP 129/64 07/26/24 08:58 Pulse Ox 97 07/26/24 08:58 FiO2 Intake & Output 07/25/24 07/26/24 07/26/24 18:59 06:59 18:59 Intake Total 0 310 Output Total 50 Balance 0 260 Intake: Blood Product 0 310 Rc As-1 Unit 0 310 [id number] Output: Urine 50 Other: Voiding Method Toilet Urinal Incontinent # Voids 1 1 - Exam patient is awake, comfortable, no acute distress. Examination of the heart S1 and S2 Examination of the lungs bilateral breath sounds are heard Abdomen is soft nontender Examination of lower extremity shows no significant edema - Labs CBC & Chem 7: 07/26/24 03:13 07/26/24 03:13 Labs: Abnormal Lab Results - Last 24 Hours (Table) 07/26/24 07/26/24 07/26/24 Range/Units 03:13 03:13 04:25 WBC 13.3 H (3.8-10.6) k/uL RBC 2.41 L (4.30-5.90) m/uL Hgb 7.3 L D (13.0-17.5) gm/dL Hct 21.5 L (39.0-53.0) % Neutrophils # 10.7 H (1.3-7.7) k/uL Chloride 113 H (98-107) mmol/L Carbon Dioxide 17 L (22-30) mmol/L BUN 79 H (9-20) mg/dL Creatinine 3.64 H (0.66-1.25) mg/dL Glucose 133 H (74-99) mg/dL Calcium 7.3 L (8.4-10.2) mg/dL AST 721 H (17-59) U/L ALT 407 H (4-49) U/L Total Protein 5.3 L (6.3-8.2) g/dL Albumin 2.5 L (3.5-5.0) g/dL Crossmatch See Detail Assessment and Plan Assessment: 1. Acute kidney injury. most likely ATN. Nonoliguric. Worsened with hypotension. Baseline creatinine unknown. Non obstructing right renal calculus on CT abdomen. No evidence for obstructive uropathy. Losartan on hold. Maintained on IV fluids. 2. H/o of BPH. Prostatomegaly on CT of abdomen. follows with urology. Maintained on Flomax 3. Hypertensive urgency, BP on admission 206/96. improved 4. Non anion gap metabolic acidosis, secondary to [place] 5. Acute cholecystitis with cholelithiasis, status post cholecystectomy on 07/25/2024 Plan: IV fluid bolus and resume IV fluids. Add IV bicarb Insert Montgomery catheter Repeat labs in a.m.
--- NOTE | 2024-07-26 19:17 | P.PN ---
Progress Note - Text Progress Note Date: 07/26/24 Chief Complaint: Abdominal pain This is a pleasant 89-year-old patient, follows with Dr. Emanuel Hogan. Chronic stable medical conditions include CAD with stent over 20 years ago, hyperlipidemia, hypertension, glaucoma, blind in the left eye, prostate disorder . For for 2 days patient been having lower abdominal pain. Some nausea vomiting. Denied any fever and chills. CT scan in the ER showed gallbladder to be mildly distended and possibly some gallstones. Enlarged prostate. This morning patient is n.p.o. denies any cardiac symptoms. No respiratory symptoms. Patient had a stress test about a year ago that was negative. July 25: Patient underwent laparoscopic cholecystectomy with Dr Wells. Found to have a gangrenous gallbladder. Still having some abdominal pain. On IV antibiotics. Tired. at the bedside. Placed on regular diet by surgery. July 26: Yesterday evening patient started vomiting. This morning put on clear liquids by surgery. Remains on IV ceftriaxone and IV Flagyl. Also LFTs have gone up. Tired. Discussed with patient sisters. Follow-up with surgery Dr Wells. Stop Lipitor Active Medications Hydrocodone Bitart/Acetaminophen (Hydrocodone/Apap 5-325mg 1 Each Tab) 1 each PO Q4HR PRN PRN Reason: Pain Last Admin: 07/26/24 17:00 Dose: 1 each Amlodipine Besylate (Amlodipine 5 Mg Tab) 5 mg PO DAILY [facility] Last Admin: 07/25/24 09:52 Dose: 5 mg Atorvastatin Calcium (Atorvastatin 40 Mg Tab) 40 mg PO DAILY [facility] Last Admin: 07/26/24 08:40 Dose: Not Given Brimonidine Tartrate (Brimonidine Tartrate 0.2% Drops 5 Ml Btl) 1 drops BOTH EYES BID [facility] Last Admin: 07/26/24 09:14 Dose: 1 drops Calcium Carbonate/Glycine (Calcium Carbonate 500 Mg Chewable) 1,000 mg PO QID PRN PRN Reason: Heartburn Last Admin: 07/26/24 09:18 Dose: 1,000 mg Dorzolamide/Timolol (Dorzolamide-Timolol 2.23%/0.68 10ml Btl) 1 drops BOTH EYES BID [facility] Last Admin: 07/26/24 09:58 Dose: 1 drops Enoxaparin Sodium (Enoxaparin 30 Mg/0.3 Ml Syringe) 30 mg SQ DAILY [facility] Last Admin: 07/26/24 09:55 Dose: 30 mg Ferrous Sulfate (Ferrous Sulfate 325 Mg Tab) 325 mg PO DAILY [facility] Last Admin: 07/26/24 09:54 Dose: 325 mg Hydromorphone HCl (Hydromorphone 0.5 Mg/0.5 Ml Syringe) 0.5 mg IVP Q3HR PRN PRN Reason: Moderate Pain (Scale 4 to 6) Last Admin: 07/26/24 09:10 Dose: 0.5 mg Metronidazole 500 mg/ IV (Solution) 100 mls @ 100 mls/hr IVPB Q8HR [facility]; Protocol Last Admin: 07/26/24 16:20 Dose: 100 mls/hr Ceftriaxone Sodium 2 gm/ (Sodium Chloride) 50 mls @ 100 mls/hr IVPB Q24HR [facility]; Protocol Last Admin: 07/26/24 10:25 Dose: 100 mls/hr Sodium Bicarbonate 150 ml/ (Dextrose/Water) 1,150 mls @ 80 mls/hr IV .[id number] [facility] Last Admin: 07/26/24 12:42 Dose: 80 mls/hr Latanoprost (Latanoprost 0.005% Ophth Drops 2.5 Ml Btl) 1 drops BOTH EYES HS [facility] Last Admin: 07/25/24 20:41 Dose: 1 drops Metoclopramide HCl (Metoclopramide 5 Mg/Ml 2 Ml Vial) 10 mg IVP Q6HR [facility] Last Admin: 07/26/24 18:07 Dose: 10 mg Naloxone HCl (Naloxone 0.4 Mg/Ml 1 Ml Vial) 0.2 mg IV Q2M PRN PRN Reason: Opioid Reversal Ondansetron HCl (Ondansetron 4 Mg/2 Ml Vial) 4 mg IVP Q8HR PRN PRN Reason: Nausea And Vomiting Last Admin: 07/26/24 16:57 Dose: 4 mg Pantoprazole Sodium (Pantoprazole 40 Mg/10 Ml Vial) 40 mg IVP DAILY [facility] Last Admin: 07/26/24 09:19 Dose: 40 mg Tamsulosin HCl (Tamsulosin 0.4 Mg Cap.Er.24h) 0.4 mg PO DAILY [facility] Last Admin: 07/26/24 09:54 Dose: 0.4 mg Trazodone HCl (Trazodone Hcl 100 Mg Tab) 100 mg PO HS [facility] Last Admin: 07/25/24 20:41 Dose: Not Given 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 . No smoking no alcohol Physical examination: VITAL SIGNS: 97.6, 98, 18, 113 x 65, 93% GENERAL: Laying in bed, tired EYES: Pupils equal. Conjunctiva hailey l. HEENT: External appearance of nose and ears normal, oral cavity grossly normal. NECK: JVD not raised; masses not palpable. HEART: First and second heart sounds are normal; no edema. LUNGS: Respiratory rate normal; clear to auscultation. ABDOMEN: Soft, some tenderness, no guarding rigidity , liver spleen not palpable, no masses palpable. Montgomery catheter PSYCH: Alert and oriented x3; mood and affect tired. MUSCULOSKELETAL:No Clubbing/cyanosis;muscles-grossly intact INVESTIGATIONS, reviewed in the clinical context: July 26: White count 13.3 hemoglobin 7.3 platelets 191 sodium 137 potassium 3.6 bicarb 17 BUN 79 creatinine 3.64 total bilirubin 0.6 AST 721 ALT 407 July 25: Sodium 137 potassium 3.9 BUN 48 creatinine 3.32 July 24, 2024: White count 15.6 hemoglobin 9.7 platelets 185 sodium 143 potassium 3.6 BUN 36 creatinine 2.86 July 23: White count 9.4 hemoglobin 12.7 BUN 41 creatinine 3.[address] abdomen pelvis: No free air. Some gallbladder mildly distended. Possible gallstones. Prostatomegaly. Possible evidence of a history of interstitial lung disease. Cardiomegaly with some coronary artery atherosclerosis Abdominal ultrasound: Hepatomegaly. Gallstones. Mildly prominent gallbladder with borderline mild wall thickening. Distal CBD prominent 8 mm. EKG tracing personally reviewed by me-sinus rhythm. Nonspecific ST-T wave changes Assessment plan: -Acute cholecystitis with gallstones on presentation. Laparoscopic cholecystectomy for gangrenous cholecystitis IV ceftriaxone. IV Flagyl. Being followed by Dr Wells. Diet changed to clear liquid -Overnight patient having nausea vomiting. Drop in hemoglobin. Increasing LFTs. -Hyperlipidemia Lipitor 40 mg a day -Glaucoma continue eyedrops -Acute postoperative blood loss anemia Follow closely -Essential hypertension Losartan 50 mg a day -GERD Prilosec 20 mg a day -BPH Flomax 0.4 mg a day -CAD with stent about 20 years ago. Had a stress test a year ago that was negative. Lipitor-hold because of increased LFTs -Kidney injury, acute versus chronic: Worsening Patient's last documented creatinine was 0.7 in April 2021. On admission 3. IV fluids. Repeat labs Nephrology following -Post operative transaminitis, with normal bilirubin DC [place]. DC Lipitor. -Full code DC [place]. DC Lipitor. Follow labs hemoglobin closely. Discussed with patient sisters. Past Medical History Past Medical History: Coronary Artery Disease (CAD), Eye Disorder, Hyperlipidemia, Hypertension, Prostate Disorder, Sleep Apnea/CPAP/BIPAP Additional Past Medical History / Comment(s): states not currently taking HTN meds, glaucoma, blind left eye History of Any Multi-Drug Resistant Organisms: None Reported Past Surgical History: Heart Catheterization With Stent Additional Past Surgical History / Comment(s): jodee cataract, hemmoroidectomy, one cardiac stent Past Anesthesia/Blood Transfusion Reactions: No Reported Reaction Date of Last Stent Placement:: 2007 Past Psychological History: No Psychological Hx Reported Smoking Status: Former smoker Past Alcohol Use History: Rare Past Drug Use History: None Reported
[2024-07-27 04:13] LABS: ALT 236 U/L (4-49); AST 251 U/L (17-59); African American GFR (CKD) 18 (>60 ml/min/1.73 sqM); Albumin 2.1 g/dL (3.5-5.0); Albumin/Globulin Ratio 0.8; Alkaline Phosphatase 65 U/L (38-126); Anion Gap 8 mmol/L; Calcium 7.1 mg/dL (8.4-10.2); Carbon Dioxide 15 mmol/L (22-30); Chloride 117 mmol/L (98-107); Globulin 2.5 g/dL; Glucose 137 mg/dL (74-99); Non-African American GFR(CKD) 16 (>60 ml/min/1.73 sqM); Potassium 3.2 mmol/L (3.5-5.1); Sodium 140 mmol/L (137-145); Total Bilirubin 0.5 mg/dL (0.2-1.3); Total Protein 4.6 g/dL (6.3-8.2)
[2024-07-27 04:17] LABS: Blood Urea Nitrogen 113 mg/dL (9-20)
[2024-07-27 04:54] LABS: Basophils % (A) 0 %; Eosinophils % (A) 0 %; Lymphocytes # (A) 1.7 k/uL (1.0-4.8); Lymphocytes % (A) 16 %; MCH 30.3 pg (25.0-35.0); MCV 88.9 fL (80.0-100.0); Mean Platelet Volume 9.4; Monocytes # (A) 0.7 k/uL (0-1.0); Monocytes % (A) 7 %; Neutrophils # (A) 7.8 k/uL (1.3-7.7); Neutrophils % (A) 75 %; Platelet Count 159 k/uL (150-450); RBC 1.88 m/uL (4.30-5.90); RDW 15.4 % (11.5-15.5); WBC 10.5 k/uL (3.8-10.6)
[2024-07-27 04:56] LABS: HCT 16.7 % (39.0-53.0); HGB 5.7 gm/dL (13.0-17.5)
[2024-07-27 06:40] LABS: Glucose,Whole Blood 148 mg/dL (70-110)
[2024-07-27] MEDS ORDERED: Potassium Replacement Protocol 1 EACH MISC MISCELLANE PRN (08:35)
--- NOTE | 2024-07-27 08:40 | P.PN ---
Subjective Progress Note Date: 07/27/24 Principal diagnosis: Gangrenous cholecystitis This is a 89-year-old male who underwent previous laparoscopic cholecystectomy for gangrenous cholecystitis. Patient developed anemia most likely related to postoperative bleeding. He was given 1 unit of packed red cells yesterday. Patient had a critical hemoglobin this morning. Patient was transfused another unit of packed red cells. During his transfusion patient had some mental status changes. Patient was hemodynamically stable. And a team was called and he was evaluated. Patient states he feels better this morning he is currently having a sponge bath. He has some minimal abdominal pain and nausea. On exam vital signs appear stable. Abdomen is soft with minimal tenderness. There is bruising from the Lovenox injection site. Status post laparoscopic cholecystectomy for gangrenous cholecystitis. Patient's postop anemia is due to postoperative bleeding. Patient be transfused 2 units of packed red cells this morning. He will be closely observed. Objective - Vital Signs Vital signs: Vital Signs Temp 97.6 F 07/27/24 07:37 Pulse 105 H 07/27/24 07:37 Resp 18 07/27/24 07:37 BP 154/64 07/27/24 07:37 Pulse Ox 98 07/27/24 07:37 FiO2 Intake & Output 07/26/24 07/27/24 07/27/24 18:59 06:59 18:59 Intake Total 630 1080 Output Total 1000 750 Balance -370 330 Intake: Oral 320 1080 Blood Product 310 0 Rc As-1 Unit 0 [id number] Rc As-1 Unit 310 [id number] Output: Urine 1000 750 Straight 400 Other: Voiding Method Urinal Indwelling Catheter Indwelling Catheter Incontinent # Bowel Movements 1 1 - Labs CBC & Chem 7: 07/27/24 03:14 07/27/24 03:14 Labs: Abnormal Lab Results - Last 24 Hours (Table) 07/26/24 07/27/24 07/27/24 Range/Units 04:25 03:14 03:14 RBC 1.88 L (4.30-5.90) m/uL Hgb 5.7 L* D (13.0-17.5) gm/dL Hct 16.7 L* (39.0-53.0) % Neutrophils # 7.8 H (1.3-7.7) k/uL Potassium 3.2 L (3.5-5.1) mmol/L Chloride 117 H (98-107) mmol/L Carbon Dioxide 15 L (22-30) mmol/L BUN 113 H* (9-20) mg/dL Creatinine 3.29 H (0.66-1.25) mg/dL Glucose 137 H (74-99) mg/dL POC Glucose (mg/dL) (70-110) mg/dL Calcium 7.1 L (8.4-10.2) mg/dL AST 251 H (17-59) U/L ALT 236 H (4-49) U/L Total Protein 4.6 L (6.3-8.2) g/dL Albumin 2.1 L (3.5-5.0) g/dL Crossmatch See Detail 07/27/24 Range/Units 06:38 RBC (4.30-5.90) m/uL Hgb (13.0-17.5) gm/dL Hct (39.0-53.0) % Neutrophils # (1.3-7.7) k/uL Potassium (3.5-5.1) mmol/L Chloride (98-107) mmol/L Carbon Dioxide (22-30) mmol/L BUN (9-20) mg/dL Creatinine (0.66-1.25) mg/dL Glucose (74-99) mg/dL POC Glucose (mg/dL) 148 H (70-110) mg/dL Calcium (8.4-10.2) mg/dL AST (17-59) U/L ALT (4-49) U/L Total Protein (6.3-8.2) g/dL Albumin (3.5-5.0) g/dL Crossmatch
[2024-07-27] MEDS ORDERED: POTASSIUM CHLORIDE 10 MEQ in WATER FOR INJECTION 1 100ML.BAG IVPB SCH (10:00)
--- NOTE | 2024-07-27 11:31 | P.PN ---
Subjective patient is seen for follow-up for acute kidney injury. Status post cholecystectomy on 07/24/2024. Serum creatinine slightly improved to 3.2 today however hemoglobin was down to 5.7 g/dL. maintained on IV bicarb. Objective - Vital Signs Vital signs: Vital Signs Temp 97.4 F L 07/27/24 09:17 Pulse 98 07/27/24 10:34 Resp 20 07/27/24 09:17 BP 139/54 07/27/24 10:34 Pulse Ox 98 07/27/24 10:34 FiO2 Intake & Output 07/26/24 07/27/24 07/27/24 18:59 06:59 18:59 Intake Total 630 1080 510 Output Total 1000 750 600 Balance -370 330 -90 Intake: Oral 320 1080 200 Blood Product 310 0 310 Rc As-1 Unit 0 310 [id number] Rc As-1 Unit 310 [id number] Output: Urine 1000 750 600 Straight 400 Other: Voiding Method Urinal Indwelling Catheter Indwelling Catheter Incontinent # Bowel Movements 1 1 2 - Exam General: nontoxic, no distress, awake comfortable no acute distress. Cardiovascular: S1 S2 reg, no murmur Lungs: CTA bilateral, no accessory muscle use Abdominal: soft, upper abdomen tender to palpation Extremities: no edema - Labs CBC & Chem 7: 07/27/24 03:14 07/27/24 03:14 Labs: Abnormal Lab Results - Last 24 Hours (Table) 07/26/24 07/27/24 07/27/24 Range/Units 04:25 03:14 03:14 RBC 1.88 L (4.30-5.90) m/uL Hgb 5.7 L* D (13.0-17.5) gm/dL Hct 16.7 L* (39.0-53.0) % Neutrophils # 7.8 H (1.3-7.7) k/uL Potassium 3.2 L (3.5-5.1) mmol/L Chloride 117 H (98-107) mmol/L Carbon Dioxide 15 L (22-30) mmol/L BUN 113 H* (9-20) mg/dL Creatinine 3.29 H (0.66-1.25) mg/dL Glucose 137 H (74-99) mg/dL POC Glucose (mg/dL) (70-110) mg/dL Calcium 7.1 L (8.4-10.2) mg/dL AST 251 H (17-59) U/L ALT 236 H (4-49) U/L Total Protein 4.6 L (6.3-8.2) g/dL Albumin 2.1 L (3.5-5.0) g/dL Crossmatch See Detail 07/27/24 Range/Units 06:38 RBC (4.30-5.90) m/uL Hgb (13.0-17.5) gm/dL Hct (39.0-53.0) % Neutrophils # (1.3-7.7) k/uL Potassium (3.5-5.1) mmol/L Chloride (98-107) mmol/L Carbon Dioxide (22-30) mmol/L BUN (9-20) mg/dL Creatinine (0.66-1.25) mg/dL Glucose (74-99) mg/dL POC Glucose (mg/dL) 148 H (70-110) mg/dL Calcium (8.4-10.2) mg/dL AST (17-59) U/L ALT (4-49) U/L Total Protein (6.3-8.2) g/dL Albumin (3.5-5.0) g/dL Crossmatch Assessment and Plan Assessment: 1. Acute kidney injury. ATN. Nonoliguric. Baseline creatinine unknown. Non obstructing right renal calculus on CT abdomen. No evidence for obstructive uropathy. Losartan on hold. Maintained on IV fluids. Renal function worsened postop due to hypotension and anemia. 2. H/o of BPH. Prostatomegaly on CT of abdomen. Currently on tadalafil and tamsulosin. Follows up with urologist annually. 3. Hypertension with blood pressure currently on the lower side. 4. Non anion gap metabolic acidosis, secondary to [place] maintained on bicarb drip 5. Acute cholecystitiswith cholelithiasis being followed by surgery. S/p laparoscopic cholecystectomy 07/24/24. Plan: increase bicarb drip Continue with Montgomery catheter Repeat labs in a.m. Replace potassium.
--- NOTE | 2024-07-27 12:10 | CT ---
EXAMINATION TYPE: CT abdomen pelvis wo con DATE OF EXAM: 07/27/2024 HISTORY: Abdominal distension, black stool CT DLP: 722.3 mGycm. Automated Exposure Control for Dose Reduction was Utilized. TECHNIQUE: CT scan of the abdomen and pelvis is performed without oral or IV contrast. COMPARISON: 07/23/2024 FINDINGS: Within the limitations of a non-contrast study, the following observations are made. Marked chronic changes in the lung bases with interstitial scarring and pleural thickening. There is a small hiatal hernia. In the gallbladder fossa and no distinct gallbladder is identified. There is ill-defined hypodensity with gas bubbles consistent with acute severe infectious process. There is ill-defined decreased dens ity in the right lobe of the liver as well. There is free intraperitoneal air. There is dense intrape ritoneal fluid adjacent to the liver edge consistent with hemoperitoneum. There are no renal calcifications or hydronephrosis. The caliber of the abdominal aorta is normal. The bowel loops are normal in caliber and there is no dilatation or obstruction. No inflammatory corral ges identified within the mesentery. There is no free intraperitoneal air or fluid. There is no pelvic mass, free fluid, abscess or adenopathy. There is moderate to marked prostatic enl argement. There is a Montgomery catheter in urinary bladder The osseous structures are intact. There is thickening of the right abdominal rectus muscle but no di screte abscess. IMPRESSION: 1 Severe phlegmon in the gallbladder fossa with air bubbles and edema extending into the posterior se gment right lower liver, free intraperitoneal air and hemoperitoneum. 2. Marked chronic changes in the lung bases. [facility], , 07/27/2024 12:08 PM
[2024-07-27] MEDS: POTASSIUM CHLORIDE 10 MEQ in SODIUM CHLORIDE 0.9% 100 ML IVPB SCH (14:48)
[2024-07-27 16:49] LABS: Basophils % (A) 0 %; Eosinophils # (A) 0.1 k/uL (0-0.7); Eosinophils % (A) 1 %; HCT 22.3 % (39.0-53.0); HGB 7.1 gm/dL (13.0-17.5); Lymphocytes # (A) 1.6 k/uL (1.0-4.8); Lymphocytes % (A) 15 %; MCHC 31.8 g/dL (31.0-37.0); MCV 91.4 fL (80.0-100.0); Mean Platelet Volume 8.2; Monocytes # (A) 0.7 k/uL (0-1.0); Monocytes % (A) 6 %; Neutrophils # (A) 7.7 k/uL (1.3-7.7); Neutrophils % (A) 74 %; Platelet Count 166 k/uL (150-450); RBC 2.44 m/uL (4.30-5.90); RDW 14.5 % (11.5-15.5); WBC 10.4 k/uL (3.8-10.6)
--- NOTE | 2024-07-27 16:49 | P.PN ---
Progress Note - Text Progress Note Date: 07/27/24 Chief Complaint: Abdominal pain This is a pleasant 89-year-old patient, follows with Dr. Emanuel Hogan. Chronic stable medical conditions include CAD with stent over 20 years ago, hyperlipidemia, hypertension, glaucoma, blind in the left eye, prostate disorder . For for 2 days patient been having lower abdominal pain. Some nausea vomiting. Denied any fever and chills. CT scan in the ER showed gallbladder to be mildly distended and possibly some gallstones. Enlarged prostate. This morning patient is n.p.o. denies any cardiac symptoms. No respiratory symptoms. Patient had a stress test about a year ago that was negative. July 25: Patient underwent laparoscopic cholecystectomy with Dr Wells. Found to have a gangrenous gallbladder. Still having some abdominal pain. On IV antibiotics. Tired. at the bedside. Placed on regular diet by surgery. July 26: Yesterday evening patient started vomiting. This morning put on clear liquids by surgery. Remains on IV ceftriaxone and IV Flagyl. Also LFTs have gone up. Tired. Discussed with patient sisters. Follow-up with surgery Dr Wells. Stop Lipitor July 27: Patient dropped hemoglobin this morning to 5.7. 2 more units of blood given. Told the nurse to give it a bit faster. Because of hypotension. An acute bleed. Bruising on the flank. I ordered the CT scan earlier. Showed a ill-defined hypodensity with gas bubbles consistent with acute severe infectious process. Also ill-defined decreased density in the right lobe of the liver as well. Free intraperitoneal air. Dense intraperitoneal fluid adjacent to the liver edge consistent with hemoperitoneum. Discussed with patient's one of the sisters at the bedside. The nurse has spoken to Dr. Wells. His decision regarding further course of action. On clear liquids. Bicarbonate drip. IV Flagyl and IV ceftriaxone. Rather tired. Active Medications Brimonidine Tartrate (Brimonidine Tartrate 0.2% Drops 5 Ml Btl) 1 drops BOTH EYES BID [facility] Last Admin: 07/27/24 09:40 Dose: 1 drops Calcium Carbonate/Glycine (Calcium Carbonate 500 Mg Chewable) 1,000 mg PO QID PRN PRN Reason: Heartburn Last Admin: 07/26/24 09:18 Dose: 1,000 mg Dorzolamide/Timolol (Dorzolamide-Timolol 2.23%/0.68 10ml Btl) 1 drops BOTH EYES BID [facility] Last Admin: 07/27/24 10:39 Dose: 1 drops Enoxaparin Sodium (Enoxaparin 30 Mg/0.3 Ml Syringe) 30 mg SQ DAILY [facility] Last Admin: 07/27/24 08:04 Dose: Not Given Ferrous Sulfate (Ferrous Sulfate 325 Mg Tab) 325 mg PO DAILY [facility] Last Admin: 07/27/24 09:26 Dose: 325 mg Hydromorphone HCl (Hydromorphone 0.5 Mg/0.5 Ml Syringe) 0.5 mg IVP Q3HR PRN PRN Reason: Moderate Pain (Scale 4 to 6) Last Admin: 07/26/24 09:10 Dose: 0.5 mg Metronidazole 500 mg/ IV (Solution) 100 mls @ 100 mls/hr IVPB Q8HR [facility]; Protocol Last Admin: 07/27/24 15:54 Dose: 100 mls/hr Ceftriaxone Sodium 2 gm/ (Sodium Chloride) 50 mls @ 100 mls/hr IVPB Q24HR [facility]; Protocol Last Admin: 07/27/24 10:39 Dose: 100 mls/hr Sodium Bicarbonate 150 ml/ (Dextrose/Water) 1,150 mls @ 100 mls/hr IV .[id number] [facility] Last Admin: 07/27/24 14:43 Dose: 100 mls/hr Latanoprost (Latanoprost 0.005% Ophth Drops 2.5 Ml Btl) 1 drops BOTH EYES HS [facility] Last Admin: 07/26/24 20:12 Dose: 1 drops Metoclopramide HCl (Metoclopramide 5 Mg/Ml 2 Ml Vial) 10 mg IVP Q6HR [facility] Last Admin: 07/27/24 15:30 Dose: Not Given Miscellaneous Information (Potassium Replacement Protocol 1 Each Misc) 1 each MISCELLANE DAILY PRN; Protocol PRN Reason: Per Protocol Naloxone HCl (Naloxone 0.4 Mg/Ml 1 Ml Vial) 0.2 mg IV Q2M PRN PRN Reason: Opioid Reversal Ondansetron HCl (Ondansetron 4 Mg/2 Ml Vial) 4 mg IVP Q8HR PRN PRN Reason: Nausea And Vomiting Last Admin: 07/26/24 16:57 Dose: 4 mg Pantoprazole Sodium (Pantoprazole 40 Mg/10 Ml Vial) 40 mg IVP DAILY [facility] Last Admin: 07/27/24 09:27 Dose: 40 mg Tamsulosin HCl (Tamsulosin 0.4 Mg Cap.Er.24h) 0.4 mg PO DAILY [facility] Last Admin: 07/27/24 09:26 Dose: 0.4 mg Trazodone HCl (Trazodone Hcl 100 Mg Tab) 100 mg PO HS [facility] Last Admin: 07/26/24 20:12 Dose: 100 mg 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 . No smoking no alcohol Physical examination: VITAL SIGNS: 98.1, 89, 18, 145 x 65, 98% room air GENERAL: Laying in bed, tired, lethargic EYES: Pupils equal. Conjunctiva hailey l. HEENT: External appearance of nose and ears normal, oral cavity grossly normal. NECK: JVD not raised; masses not palpable. HEART: First and second heart sounds are normal; no edema. LUNGS: Respiratory rate normal; clear to auscultation. ABDOMEN: Soft, some distention, some tenderness, no guarding rigidity , liver spleen not palpable, no masses palpable. Montgomery catheter. Bruising on the right flank PSYCH: Lethargic but arousable MUSCULOSKELETAL:No Clubbing/cyanosis;muscles-grossly intact INVESTIGATIONS, reviewed in the clinical context: July 27: White count 10.5 hemoglobin 5.7 platelets 159 potassium 3.2 bicarb 15 BUN 113 creatinine 3.29 total bilirubin 0.5 AST 251 ALT 236 July 26: White count 13.3 hemoglobin 7.3 platelets 191 sodium 137 potassium 3.6 bicarb 17 BUN 79 creatinine 3.64 total bilirubin 0.6 AST 721 ALT 407 July 25: Sodium 137 potassium 3.9 BUN 48 creatinine 3.32 July 24, 2024: White count 15.6 hemoglobin 9.7 platelets 185 sodium 143 potassium 3.6 BUN 36 creatinine 2.86 July 23: White count 9.4 hemoglobin 12.7 BUN 41 creatinine [address] abdomen pelvis: No free air. Some gallbladder mildly distended. Possible gallstones. Prostatomegaly. Possible evidence of a history of interstitial lung disease. Cardiomegaly with some coronary artery atherosclerosis Abdominal ultrasound: Hepatomegaly. Gallstones. Mildly prominent gallbladder with borderline mild wall thickening. Distal CBD prominent 8 mm. EKG tracing personally reviewed by me-sinus rhythm. Nonspecific ST-T wave changes Assessment plan: -Acute cholecystitis with gallstones on presentation. Laparoscopic cholecystectomy for gangrenous cholecystitis IV ceftriaxone. IV Flagyl. Being followed by Dr Wells. Diet changed to clear liquid -Overnight patient having nausea vomiting. Drop in hemoglobin. Increasing LFTs. -Hyperlipidemia Lipitor 40 mg a day -Glaucoma continue eyedrops -Acute postoperative blood loss anemia, at surgical site perihepatic Patient received 3 units of blood -Essential hypertension Losartan 50 mg a day -Metabolic acidosis from kidney injury IV bicarbonate drip -GERD Prilosec 20 mg a day -BPH Flomax 0.4 mg a day -CAD with stent about 20 years ago. Had a stress test a year ago that was negative. Lipitor-hold because of increased LFTs -Kidney injury, acute versus chronic: Not improving Patient's last documented creatinine was 0.7 in April 2021. On admission 3. IV fluids. Repeat labs Nephrology following -Post operative transaminitis, with normal bilirubin: Slow response DC [place]. DC Lipitor. -Full code Patient's probably blood around the gallbladder side. As showing over the CAT scan. Has received 3 3 units of blood. On IV bicarbonate drip. Discussed with sister at the bedside. Follow-up with Dr Wells. Prognosis guarded. Check hemoglobin every 8 hours Past Medical History Past Medical History: Coronary Artery Disease (CAD), Eye Disorder, Hyperlipidemia, Hypertension, Prostate Disorder, Sleep Apnea/CPAP/BIPAP Additional Past Medical History / Comment(s): states not currently taking HTN meds, glaucoma, blind left eye History of Any Multi-Drug Resistant Organisms: None Reported Past Surgical History: Heart Catheterization With Stent Additional Past Surgical History / Comment(s): jodee cataract, hemmoroidectomy, one cardiac stent Past Anesthesia/Blood Transfusion Reactions: No Reported Reaction Date of Last Stent Placement:: 2007 Past Psychological History: No Psychological Hx Reported Smoking Status: Former smoker Past Alcohol Use History: Rare Past Drug Use History: None Reported
[2024-07-28 00:38] LABS: INR 1.5 (<1.2)
[2024-07-28 00:39] LABS: Prothrombin Time 15.2 sec (10.0-12.5)
[2024-07-28 00:52] LABS: HCT 21.9 % (39.0-53.0); HGB 7.6 gm/dL (13.0-17.5); MCH 30.9 pg (25.0-35.0); MCHC 34.8 g/dL (31.0-37.0); MCV 88.8 fL (80.0-100.0); Mean Platelet Volume 9.2; Platelet Count 156 k/uL (150-450); RBC 2.47 m/uL (4.30-5.90); RDW 15.1 % (11.5-15.5); WBC 10.2 k/uL (3.8-10.6)
[2024-07-28] MEDS: POTASSIUM BICARBONATE/CIT AC 20 MEQ TABLET.EFF PO SCH (11:37)
[2024-07-28] MEDS ORDERED: POTASSIUM CHLORIDE ER 20 MEQ TAB.ER PO SCH (12:00)
--- NOTE | 2024-07-28 12:09 | P.PN ---
Subjective Patient is seen in follow-up for acute kidney injury. Creatinine 3.29 yesterday. Currently on bicarb drip. Denies chest pain or shortness of breath. On clear liquid diet. Has Montgomery catheter. Nonoliguric. Vital signs are stable. General: No acute distress. HEENT: Head exam is unremarkable. LUNGS: No audible rhonchi or wheezes. HEART: Rate and Rhythm are regular. ABDOMEN: Nontender. EXTREMITITES: No edema. Objective - Vital Signs Vital signs: Vital Signs Temp 97.9 F 07/28/24 07:25 Pulse 73 07/28/24 09:00 Resp 16 07/28/24 07:25 BP 147/62 07/28/24 09:00 Pulse Ox 94 L 07/28/24 09:00 FiO2 Intake & Output 07/27/24 07/28/24 07/28/24 18:59 06:59 18:59 Intake Total 820 1160 Output Total 1400 1900 Balance -580 -740 Intake: Oral 200 1160 Blood Product 620 0 Rc As-1 Unit 310 [id number] Rc As-1 Unit 310 [id number] Rc As-1 Unit 0 [id number] Output: Urine 1400 1900 Uretheral (Montgomery) 800 Other: Voiding Method Indwelling Catheter Indwelling Catheter Indwelling Catheter # Bowel Movements 1 2 - Labs CBC & Chem 7: 07/28/24 00:07 07/28/24 06:18 Labs: Abnormal Lab Results - Last 24 Hours (Table) 07/26/24 07/27/24 07/28/24 Range/Units 04:25 16:18 00:07 RBC 2.44 L 2.47 L (4.30-5.90) m/uL Hgb 7.1 L 7.6 L (13.0-17.5) gm/dL Hct 22.3 L 21.9 L (39.0-53.0) % PT (10.0-12.5) sec INR (<1.2) Potassium (3.5-5.1) mmol/L Crossmatch See Detail 07/28/24 07/28/24 Range/Units 00:07 06:18 RBC (4.30-5.90) m/uL Hgb (13.0-17.5) gm/dL Hct (39.0-53.0) % PT 15.2 H (10.0-12.5) sec INR 1.5 H (<1.2) Potassium 2.9 L (3.5-5.1) mmol/L Crossmatch Assessment and Plan Plan: Assessment: 1. Acute kidney injury secondary to ATN. Creatinine 0.3 in April 2021. Creatinine peaked at 3.64 this admission and was down to 3.29 yesterday. No hydronephrosis noted on CT. UA shows granular casts which is suggestive of ATN. Serologies negative so far. 2. Acute blood loss anemia status post blood transfusions. Hemoglobin 7.6 today. 3. Metabolic acidosis secondary to acute kidney injury maintained on bicarb drip. 4. History of BPH and prostatomegaly. 5. Acute cholecystitis with cholelithiasis status post laparoscopic cholecystectomy July 24, 2024. Plan: Maintain bicarb drip. Maintain Montgomery catheter. Follow-up serologies. Follow-up morning labs. Avoid nephrotoxins. Potassium being replaced.
[2024-07-28 12:10] LABS: African American GFR (CKD) 30 (>60 ml/min/1.73 sqM); Anion Gap 1 mmol/L; Blood Urea Nitrogen 69 mg/dL (9-20); Calcium 7.2 mg/dL (8.4-10.2); Carbon Dioxide 24 mmol/L (22-30); Chloride 116 mmol/L (98-107); Glucose 131 mg/dL (74-99); Magnesium 1.7 mg/dL (1.6-2.3); Non-African American GFR(CKD) 26 (>60 ml/min/1.73 sqM); Potassium 2.9 mmol/L (3.5-5.1); Sodium 141 mmol/L (137-145)
[2024-07-28] MEDS: POTASSIUM CHLORIDE ER 20 MEQ TAB.ER PO STA (12:16)
--- NOTE | 2024-07-28 14:40 | P.PN ---
Subjective Progress Note Date: 07/28/24 CHIEF COMPLAINT: Gangrenous cholecystitis HISTORY OF PRESENT ILLNESS: Patient is postop day #4 status post laparoscopic cholecystectomy. Patient lying in bed comfortably. He reports his pain is controlled. Tolerating liquids. He did have evidence of postoperative bleeding over the weekend and has required total of 4 units of blood. Hemoglobin was 5.7 yesterday has gone up to 7.1 yesterday evening and is 7.6 today. Patient's potassium is 2.9 and being replaced. creatinine is 2.21 CT scan abdomen pelvis from yesterday reports severe phlegmon in the gallbladder fossa with air bubbles and edema extending into the posterior segment of the right lower liver, Free intraperitoneal air and hemoperitoneum. Vitals are stable. Patient reports having flatus. No bowel movement yet. PHYSICAL EXAM: VITAL SIGNS: Reviewed. GENERAL: no acute distress. ABDOMEN: Soft. Nondistended. Patient has bruising along the right lower side of the abdomen. NEUROLOGIC: Alert and oriented. Cranial nerves II through XII grossly intact. ASSESSMENT: 1. Gangrenous cholecystitis 2. Acute blood loss anemia due to postoperative bleeding 3. Elevated LFTs 4. Possible GI bleed with melanotic stools. Also, taking Iron pills PLAN: -Continue clear liquid diet -Continue to monitor hemoglobin -Continue antibiotics -Okay to increase activity level -IV fluids per nephrology -Repeat LFTs and CBC in a.m. Physician Director Of Education note has been reviewed by physician. Signing provider agrees with the documented findings, assessment, and plan of care. Objective - Vital Signs Vital signs: Vital Signs Temp 97.9 F 07/28/24 07:25 Pulse 73 07/28/24 09:00 Resp 16 07/28/24 07:25 BP 147/62 07/28/24 09:00 Pulse Ox 94 L 07/28/24 09:00 FiO2 Intake & Output 07/27/24 07/28/24 07/28/24 18:59 06:59 18:59 Intake Total 820 1160 Output Total 1400 1900 Balance -580 -740 Intake: Oral 200 1160 Blood Product 620 0 Rc As-1 Unit 310 [id number] Rc As-1 Unit 310 [id number] Rc As-1 Unit 0 [id number] Output: Urine 1400 1900 Uretheral (Montgomery) 800 Other: Voiding Method Indwelling Catheter Indwelling Catheter Indwelling Catheter # Bowel Movements 1 2 - Labs CBC & Chem 7: 07/28/24 00:07 07/28/24 06:18 Labs: Abnormal Lab Results - Last 24 Hours (Table) 07/26/24 07/27/24 07/28/24 Range/Units 04:25 16:18 00:07 RBC 2.44 L 2.47 L (4.30-5.90) m/uL Hgb 7.1 L 7.6 L (13.0-17.5) gm/dL Hct 22.3 L 21.9 L (39.0-53.0) % PT (10.0-12.5) sec INR (<1.2) Potassium (3.5-5.1) mmol/L Chloride (98-107) mmol/L BUN (9-20) mg/dL Creatinine (0.66-1.25) mg/dL Glucose (74-99) mg/dL Calcium (8.4-10.2) mg/dL Crossmatch See Detail 07/28/24 07/28/24 07/28/24 Range/Units 00:07 06:18 06:18 RBC (4.30-5.90) m/uL Hgb (13.0-17.5) gm/dL Hct (39.0-53.0) % PT 15.2 H (10.0-12.5) sec INR 1.5 H (<1.2) Potassium 2.9 L 2.9 L (3.5-5.1) mmol/L Chloride 116 H (98-107) mmol/L BUN 69 H (9-20) mg/dL Creatinine 2.21 H (0.66-1.25) mg/dL Glucose 131 H (74-99) mg/dL Calcium 7.2 L (8.4-10.2) mg/dL Crossmatch
--- NOTE | 2024-07-28 14:40 | P.CNPUL ---
History of Present Illness Consult date: 07/28/24 Requesting physician: Partha Wells Reason for consult: other (Critical care management) Chief complaint: Abdominal pain History of present illness: This is a pleasant 89-year-old male patient who was admitted back on 07/23/2024 with abdominal pain as a transfer from [place]. He was found to have cholecystitis gangrenous and had undergone a laparoscopic cholecystectomy on 07/24/2024. Follow-up CT scan of the abdomen from yesterday 07/27/2024 revealed severe phlegmon in the gallbladder fossa with air bubbles and edema extending into the posterior segment of the right lower liver, free IntraOp peritoneal air and hemoperitoneum. Chronic changes at the lung bases. He did have a drop in hemoglobin to 5.7. He is status post 4 units of packed red blood cells this admission. Current hemoglobin 7.6. White count 10.2. INR 1.5. Sodium 141. Potassium 2.9. Bicarb 24. BUN 69. Creatinine 2.21. Glucose 131. He remains on ceftriaxone and Flagyl. D5W with 3 A of bicarb at 100 mL/h. Lovenox for DVT prophylaxis. We are consulted for possible admission to the intensive care unit. He is seen today on the regular medical floor. He is sitting up in a chair. Awake and alert in no acute distress. Maintaining good O2 saturations in the 90s on room air. He is afebrile. Hemodynamically stable. Review of Systems REVIEW OF SYSTEMS: CONSTITUTIONAL: Denies any recent significant weight loss or weight gain. EYES: Denies change in vision. EARS, NOSE, MOUTH, THROAT: Denies headaches, denies sore throat. CARDIOVASCULAR: Denies chest pain, palpitations or syncopal episodes. RESPIRATORY: Denies shortness of breath, cough, congestion or hemoptysis. GASTROINTESTINAL: Positive for abdominal pain. GENITOURINARY: Denies hematuria, denies infections. MUSKULOSKELETAL: Denies pain, denies swelling. INTEGUMENTARY: Denies rash, denies eczema. NEUROLOGICAL: Denies recent memory loss, no recent seizure activity. PSYCHIATRIC: Denies anxiety, denies depression. HEMATOLOGIC/LYMPHATIC: Denies anemia, denies enlarged lymph nodes. Past Medical History Past Medical History: Coronary Artery Disease (CAD), Eye Disorder, Hy perlipidemia, Hypertension, Prostate Disorder, Sleep Apnea/CPAP/BIPAP Additional Past Medical History / Comment(s): states not currently taking HTN meds, glaucoma, blind left eye History of Any Multi-Drug Resistant Organisms: None Reported Past Surgical History: Heart Catheterization With Stent Additional Past Surgical History / Comment(s): jodee cataract, hemmoroidectomy, one cardiac stent Past Anesthesia/Blood Transfusion Reactions: No Reported Reaction Date of Last Stent Placement:: 2007 Past Psychological History: No Psychological Hx Reported Smoking Status: Former smoker Past Alcohol Use History: Rare Past Drug Use History: None Reported Medications and Allergies Home Medications Medication Instructions Recorded Confirmed Type Atorvastatin [Lipitor] 40 mg PO DAILY 05/03/21 07/23/24 History Latanoprost Ophth [Xalatan 0.005%] 1 drop BOTH EYES HS 05/03/21 07/23/24 History Losartan Potassium 50 mg PO DAILY 05/03/21 07/23/24 History traZODone HCL [Desyrel] 100 mg PO HS 05/03/21 07/23/24 History Brimonidine Tartrate [Alphagan P 1 drop BOTH EYES BID 07/23/24 07/23/24 History 0.2% Ophth Soln] Dorzolamide-Timol 2.23%/0.68% 1 drop BOTH EYES BID 07/23/24 07/23/24 History [Cosopt] Ferrous Sulfate [Feosol] 325 mg PO DAILY 07/23/24 07/23/24 History Furosemide [Lasix] 20 mg PO DAILY 07/23/24 07/23/24 History Omeprazole [PriLOSEC] 20 mg PO DAILY 07/23/24 07/23/24 History Ondansetron [Zofran] 4 mg PO Q8HR PRN 07/23/24 07/23/24 History Tamsulosin [Flomax] 0.4 mg PO DAILY 07/23/24 07/23/24 History polyethylene glycoL 3350 [Miralax] 17 gm PO DAILY 07/23/24 07/23/24 History tadalafiL [Cialis] 20 mg PO DAILY PRN 07/23/24 07/23/24 History Allergies Allergy/AdvReac Type Severity Reaction Status Date / Time Penicillins Allergy Rash/Hives Verified 07/23/24 06:17 Physical Exam Vitals: Vital Signs Temp Pulse Pulse Resp BP BP Pulse Ox 07/28/24 13:00 67 167/65 95 07/28/24 12:00 73 119/55 93 L 07/28/24 11:00 69 147/64 94 L 07/28/24 10:00 72 150/62 94 L 07/28/24 09:00 73 147/62 94 L 07/28/24 07:25 97.9 F 67 16 141/62 97 07/28/24 05:59 97.2 F L 58 L 14 140/56 95 07/28/24 05:00 98.3 F 69 15 142/61 95 07/28/24 04:24 97.8 F 77 16 138/54 95 07/28/24 03:00 98.3 F 79 16 143/58 96 07/28/24 02:13 98.3 F 64 14 136/56 96 07/28/24 00:50 98.3 F 76 16 140/57 97 07/27/24 23:16 98.4 F 73 126/53 97 07/27/24 21:22 79 15 128/61 96 07/27/24 20:30 98.6 F 90 18 138/60 95 07/27/24 20:10 97.7 F 86 18 150/63 96 07/27/24 20:00 97.8 F 88 20 154/70 95 07/27/24 19:05 97.4 F L 83 17 148/54 96 07/27/24 18:31 98 129/65 96 07/27/24 17:33 68 125/64 97 07/27/24 15:56 76 138/56 98 07/27/24 14:35 98.1 F 89 18 145/65 98 Intake and Output 07/27/24 07/28/24 07/28/24 22:59 06:59 14:59 Intake Total 0 1160 Output Total 800 1900 Balance -800 -740 Intake: Oral 1160 Blood Product 0 0 Rc As-1 Unit 0 0 [id number] Output: Urine 800 1900 Uretheral ([place]) 800 Other: Voiding Method Indwelling Catheter Indwelling Catheter # Bowel Movements 1 2 1 GENERAL EXAM: Alert, pleasant 89-year-old gentleman, up in a chair, on room air comfortable in no apparent distress. HEAD: Normocephalic. EYES: Normal reaction of pupils, equal size. NOSE: Clear with pink turbinates. THROAT: No erythema or exudates. NECK: No masses, no JVD. CHEST: No chest wall deformity. LUNGS: Equal air entry with crackles in the bilateral bases. CVS: S1 and S2 normal with no audible murmur, regular rhythm. ABDOMEN: Abdominal dressing dry and intact, no hepatosplenomegaly, normal bowel sounds, no guarding or rigidity. SPINE: No scoliosis or deformity SKIN: No rashes CENTRAL NERVOUS SYSTEM: No focal deficits, tone is normal in all 4 extremities. EXTREMITIES: There is no peripheral edema. No clubbing, no cyanosis. Peripheral pulses are intact. Results - Laboratory Findings CBC and BMP: 07/28/24 00:07 07/28/24 06:18 PT/INR, D-dimer PT 15.2 sec (10.0-12.5) H 07/28/24 00:07 INR 1.5 (<1.2) H 07/28/24 00:07 Abnormal lab findings: Abnormal Labs 07/23/24 07/23/24 07/24/24 07:31 07:31 03:24 WBC 11.4 H 15.6 H RBC 4.10 L 3.88 L Hgb 12.7 L 11.7 L Hct 36.5 L 34.4 L Neutrophils # 9.6 H 12.5 H Monocytes # 1.3 H PT INR Potassium Chloride 112 H Carbon Dioxide 18 L BUN 41 H Creatinine 3.00 H Glucose 137 H POC Glucose (mg/dL) Calcium AST ALT Total Protein Albumin Urine Protein Urine Glucose (UA) Urine Blood Urine WBC Urine WBC Clumps Urine Bacteria Urine Mucus Urine Yeast (Budding) Crossmatch 07/24/24 07/24/24 07/25/24 03:24 22:05 03:53 WBC RBC Hgb Hct Neutrophils # Monocytes # PT INR Potassium Chloride 112 H 112 H Carbon Dioxide 21 L 18 L BUN 36 H 48 H Creatinine 2.86 H 3.32 H Glucose 108 H 151 H POC Glucose (mg/dL) Calcium 8.3 L 7.6 L AST ALT Total Protein Albumin 3.4 L Urine Protein 1+ H Urine Glucose (UA) 1+ H Urine Blood Small H Urine WBC 9 H Urine WBC Clumps Rare H Urine Bacteria Rare H Urine Mucus Rare H Urine Yeast (Budding) Rare H Crossmatch 07/25/24 07/26/24 07/26/24 06:14 03:13 03:13 WBC 13.3 H RBC 2.41 L Hgb 7.3 L D Hct 21.5 L Neutrophils # 10.7 H Monocytes # PT INR Potassium Chloride 113 H Carbon Dioxide 17 L BUN 79 H Creatinine 3.64 H Glucose 133 H POC Glucose (mg/dL) 134 H Calcium 7.3 L AST 721 H ALT 407 H Total Protein 5.3 L Albumin 2.5 L Urine Protein Urine Glucose (UA) Urine Blood Urine WBC Urine WBC Clumps Urine Bacteria Urine Mucus Urine Yeast (Budding) Crossmatch 07/26/24 07/27/24 07/27/24 04:25 03:14 03:14 WBC RBC 1.88 L Hgb 5.7 L* D Hct 16.7 L* Neutrophils # 7.8 H Monocytes # PT INR Potassium 3.2 L Chloride 117 H Carbon Dioxide 15 L BUN 113 H* Creatinine 3.29 H Glucose 137 H POC Glucose (mg/dL) Calcium 7.1 L AST 251 H ALT 236 H Total Protein 4.6 L Albumin 2.1 L Urine Protein Urine Glucose (UA) Urine Blood Urine WBC Urine WBC Clumps Urine Bacteria Urine Mucus Urine Yeast (Budding) Crossmatch See Detail 07/27/24 07/27/24 07/28/24 06:38 16:18 00:07 WBC RBC 2.44 L 2.47 L Hgb 7.1 L 7.6 L Hct 22.3 L 21.9 L Neutrophils # Monocytes # PT INR Potassium Chloride Carbon Dioxide BUN Creatinine Glucose POC Glucose (mg/dL) 148 H Calcium AST ALT Total Protein Albumin Urine Protein Urine Glucose (UA) Urine Blood Urine WBC Urine WBC Clumps Urine Bacteria Urine Mucus Urine Yeast (Budding) Crossmatch 07/28/24 07/28/24 07/28/24 00:07 06:18 06:18 WBC RBC Hgb Hct Neutrophils # Monocytes # PT 15.2 H INR 1.5 H Potassium 2.9 L 2.9 L Chloride 116 H Carbon Dioxide BUN 69 H Creatinine 2.21 H Glucose 131 H POC Glucose (mg/dL) Calcium 7.2 L AST ALT Total Protein Albumin Urine Protein Urine Glucose (UA) Urine Blood Urine WBC Urine WBC Clumps Urine Bacteria Urine Mucus Urine Yeast (Budding) Crossmatch Assessment and Plan Assessment: Abdominal pain secondary to acute cholecystitis, gangrenous. Status post laparoscopic cholecystectomy on 07/24/2024 Acute blood loss anemia secondary to above requiring 4 units of packed red blood cells. Current hemoglobin 7.6 Acute kidney injury, secondary to acute tubular necrosis, currently on a bicarb drip Hypokalemia, receiving replacement therapy Transaminitis secondary to above Hypertension Hyperlipidemia Glaucoma BPH GERD Coronary disease with previous stent placement Plan: The patient was seen and evaluated Imaging, labs and medications reviewed Add incentive spirometer and encourage its use Continue antibiotics Lovenox for DVT prophylaxis Replace electrolytes Tolerating a clear liquid diet Continue PT/OT No need for ICU placement at this time We will continue to follow and make further recommendations based on his clinical status I have personally seen and examined the patient, performed the documentation and the assessment and plan as written. Number of minutes spent on the visit: 20 Dictation was produced using [employer] dictation software. Please excuse any grammatical, word or spelling errors.
[2024-07-28 14:56] LABS: C-ANCA <1:20 Titer (<1:20)
[2024-07-28] MEDS: SODIUM CHLORIDE 0.9% 1,000 ML IV SCH (15:21)
[2024-07-28 16:09] VITALS: BMI 27.3
[2024-07-28 20:58] LABS: Glucose,Whole Blood 149 mg/dL (70-110)
--- NOTE | 2024-07-28 21:21 | P.PN ---
Progress Note - Text Progress Note Date: 07/28/24 Chief Complaint: Abdominal pain This is a pleasant 89-year-old patient, follows with Dr. Emanuel Hogan. Chronic stable medical conditions include CAD with stent over 20 years ago, hyperlipidemia, hypertension, glaucoma, blind in the left eye, prostate disorder . For for 2 days patient been having lower abdominal pain. Some nausea vomiting. Denied any fever and chills. CT scan in the ER showed gallbladder to be mildly distended and possibly some gallstones. Enlarged prostate. This morning patient is n.p.o. denies any cardiac symptoms. No respiratory symptoms. Patient had a stress test about a year ago that was negative. July 25: Patient underwent laparoscopic cholecystectomy with Dr Wells. Found to have a gangrenous gallbladder. Still having some abdominal pain. On IV antibiotics. Tired. at the bedside. Placed on regular diet by surgery. July 26: Yesterday evening patient started vomiting. This morning put on clear liquids by surgery. Remains on IV ceftriaxone and IV Flagyl. Also LFTs have gone up. Tired. Discussed with patient sisters. Follow-up with surgery Dr Wells. Stop Lipitor July 27: Patient dropped hemoglobin this morning to 5.7. 2 more units of blood given. Told the nurse to give it a bit faster. Because of hypotension. An acute bleed. Bruising on the flank. I ordered the CT scan earlier. Showed a ill-defined hypodensity with gas bubbles consistent with acute severe infectious process. Also ill-defined decreased density in the right lobe of the liver as well. Free intraperitoneal air. Dense intraperitoneal fluid adjacent to the liver edge consistent with hemoperitoneum. Discussed with patient's one of the sisters at the bedside. The nurse has spoken to Dr. eWlls. His decision regarding further course of action. On clear liquids. Bicarbonate drip. IV Flagyl and IV ceftriaxone. Rather tired. July 28: Patient seen this afternoon. No abdominal pain. Has had some dark stool. No nausea vomiting. Remains on clear liquids. Patient's sister at the bedside. Hemoglobin remained stable. Patient received 3 units of blood yesterday. Blood pressure is good. No increase of size and the bruising along the flank. Which is marked with a skin marker. Bicarbonate drip discontinued. Put on normal saline 75 cc an hour. IV ceftriaxone IV Flagyl. Active Medications Brimonidine Tartrate (Brimonidine Tartrate 0.2% Drops 5 Ml Btl) 1 drops BOTH EYES BID [facility] Last Admin: 07/28/24 21:13 Dose: 1 drops Calcium Carbonate/Glycine (Calcium Carbonate 500 Mg Chewable) 1,000 mg PO QID PRN PRN Reason: Heartburn Last Admin: 07/26/24 09:18 Dose: 1,000 mg Dorzolamide/Timolol (Dorzolamide-Timolol 2.23%/0.68 10ml Btl) 1 drops BOTH EYES BID [facility] [place] Last Admin: 07/28/24 21:12 Dose: 1 drops Ferrous Sulfate (Ferrous Sulfate 325 Mg Tab) 325 mg PO DAILY [facility] [place] Last Admin: 07/28/24 08:21 Dose: 325 mg Hydromorphone HCl (Hydromorphone 0.5 Mg/0.5 Ml Syringe) 0.5 mg IVP Q3HR PRN PRN Reason: Moderate Pain (Scale 4 to 6) Last Admin: 07/26/24 09:10 Dose: 0.5 mg Metronidazole 500 mg/ IV (Solution) 100 mls @ 100 mls/hr IVPB Q8HR [facility] [place]; Protocol Last Admin: 07/28/24 15:21 Dose: 100 mls/hr Ceftriaxone Sodium 2 gm/ (Sodium Chloride) 50 mls @ 100 mls/hr IVPB Q24HR [facility]; Protocol Last Admin: 07/28/24 08:20 Dose: 100 mls/hr Sodium Chloride (Saline 0.9%) 1,000 mls @ 75 mls/hr IV .[id number] [facility] [place] Last Admin: 07/28/24 15:21 Dose: 75 mls/hr Latanoprost (Latanoprost 0.005% Ophth Drops 2.5 Ml Btl) 1 drops BOTH EYES HS [facility] [place] Last Admin: 07/28/24 21:12 Dose: 1 drops Metoclopramide HCl (Metoclopramide 5 Mg/Ml 2 Ml Vial) 10 mg IVP Q6HR [facility] [place] Last Admin: 07/28/24 17:01 Dose: Not Given Miscellaneous Information (Potassium Replacement Protocol 1 Each Misc) 1 each MISCELLANE DAILY PRN; Protocol PRN Reason: Per Protocol Naloxone HCl (Naloxone 0.4 Mg/Ml 1 Ml Vial) 0.2 mg IV Q2M PRN PRN Reason: Opioid Reversal Ondansetron HCl (Ondansetron 4 Mg/2 Ml Vial) 4 mg IVP Q8HR PRN PRN Reason: Nausea And Vomiting Last Admin: 07/26/24 16:57 Dose: 4 mg Pantoprazole Sodium (Pantoprazole 40 Mg/10 Ml Vial) 40 mg IVP DAILY [facility] [place] Last Admin: 07/28/24 08:21 Dose: 40 mg Tamsulosin HCl (Tamsulosin 0.4 Mg Cap.Er.24h) 0.4 mg PO DAILY [facility] [place] Last Admin: 07/28/24 08:21 Dose: 0.4 mg Trazodone HCl (Trazodone Hcl 100 Mg Tab) 100 mg PO HS [facility] [place] Last Admin: 07/28/24 21:12 Dose: 100 mg 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 . No smoking no alcohol Physical examination: VITAL SIGNS: 98, 71, 16, 165 x 59, 93% room GENERAL: Laying in bed, tired, more awake EYES: Pupils equal. Conjunctiva pale HEENT: External appearance of nose and ears normal, oral cavity grossly normal. NECK: JVD not raised; masses not palpable. HEART: First and second heart sounds are normal; no edema. LUNGS: Respiratory rate normal; clear to auscultation. ABDOMEN: Soft, some distention, minimal tenderness, no guarding rigidity , liver spleen not palpable, no masses palpable. [place] catheter. Bruising on the right flank-no increased PSYCH: Tired when answering questions appropriately MUSCULOSKELETAL:No Clubbing/cyanosis;muscles-grossly intact INVESTIGATIONS, reviewed in the clinical context: July 28: White count 10.2 hemoglobin 7.6 potassium 2.9 BUN 69 creatinine 2.21 July 27: White count 10.5 hemoglobin 5.7 platelets 159 potassium 3.2 bicarb 15 BUN 113 creatinine 3.29 total bilirubin 0.5 AST 251 ALT 236 July 26: White count 13.3 hemoglobin 7.3 platelets 191 sodium 137 potassium 3.6 bicarb 17 BUN 79 creatinine 3.64 total bilirubin 0.6 AST 721 ALT 407 July 25: Sodium 137 potassium 3.9 BUN 48 creatinine 3.32 July 24, 2024: White count 15.6 hemoglobin 9.7 platelets 185 sodium 143 potassium 3.6 BUN 36 creatinine 2.86 July 23: White count 9.4 hemoglobin 12.7 BUN 41 creatinine 3.[address] abdomen pelvis: No free air. Some gallbladder mildly distended. Possible gallstones. Prostatomegaly. Possible evidence of a history of interstitial lung disease. Cardiomegaly with some coronary artery atherosclerosis Abdominal ultrasound: Hepatomegaly. Gallstones. Mildly prominent gallbladder with borderline mild wall thickening. Distal CBD prominent 8 mm. EKG tracing personally reviewed by me-sinus rhythm. Nonspecific ST-T wave changes Assessment plan: -Acute cholecystitis with gallstones on presentation. Laparoscopic cholecystectomy for gangrenous cholecystitis IV ceftriaxone. IV Flagyl. Being followed by Dr Wells. Clear liquid -Hyperlipidemia Lipitor 40 mg a day-currently held -Glaucoma continue eyedrops -Acute postoperative blood loss anemia, at surgical site perihepatic Received 4 units of blood -Essential hypertension Losartan was held because of hypotension. Resume at 25 mg nightly starting today -Metabolic acidosis from kidney injury IV bicarbonate drip -GERD Prilosec 20 mg a day -Hypokalemia Replace potassium -BPH Flomax 0.4 mg a day -CAD with stent about 20 years ago. Had a stress test a year ago that was negative. Lipitor-hold because of increased LFTs -Kidney injury, acute versus chronic: Not improving Patient's last documented creatinine was 0.7 in April 2021. On admission 3. IV fluids. Repeat labs Nephrology following -Post operative transaminitis, with normal bilirubin: Slow response DC [place]. DC Lipitor. -Full code Bicarb drip discontinued. Started normal saline. Start losartan 25 mg nightly. Follow hemoglobin. Replace potassium. Follow hemoglobin and labs Past Medical History Past Medical History: Coronary Artery Disease (CAD), Eye Disorder, Hyperlipidemia, Hypertension, Prostate Disorder, Sleep Apnea/CPAP/BIPAP Additional Past Medical History / Comment(s): states not currently taking HTN meds, glaucoma, blind left eye History of Any Multi-Drug Resistant Organisms: None Reported Past Surgical History: Heart Catheterization With Stent Additional Past Surgical History / Comment(s): jodee cataract, hemmoroidectomy, one cardiac stent Past Anesthesia/Blood Transfusion Reactions: No Reported Reaction Date of Last Stent Placement:: 2007 Past Psychological History: No Psychological Hx Reported Smoking Status: Former smoker Past Alcohol Use History: Rare Past Drug Use History: None Reported
[2024-07-28] MEDS: LOSARTAN 25 MG TAB PO SCH (21:34)
[2024-07-29 03:36] LABS: HCT 22.9 % (39.0-53.0); HGB 7.4 gm/dL (13.0-17.5); MCH 29.2 pg (25.0-35.0); MCHC 32.2 g/dL (31.0-37.0); MCV 90.7 fL (80.0-100.0); Mean Platelet Volume 8.3; Platelet Count 203 k/uL (150-450); RBC 2.53 m/uL (4.30-5.90); WBC 10.7 k/uL (3.8-10.6)
[2024-07-29 03:48] LABS: ALT 156 U/L (4-49); AST 114 U/L (17-59); African American GFR (CKD) 44 (>60 ml/min/1.73 sqM); Albumin 2.3 g/dL (3.5-5.0); Albumin/Globulin Ratio 0.9; Alkaline Phosphatase 74 U/L (38-126); Anion Gap 1 mmol/L; Blood Urea Nitrogen 41 mg/dL (9-20); Calcium 7.2 mg/dL (8.4-10.2); Carbon Dioxide 28 mmol/L (22-30); Chloride 113 mmol/L (98-107); Globulin 2.7 g/dL; Glucose 105 mg/dL (74-99); Magnesium 1.6 mg/dL (1.6-2.3); Non-African American GFR(CKD) 38 (>60 ml/min/1.73 sqM); Potassium 3.3 mmol/L (3.5-5.1); Sodium 142 mmol/L (137-145); Total Bilirubin 1.1 mg/dL (0.2-1.3)
[2024-07-29 06:30] LABS: Glucose,Whole Blood 116 mg/dL (70-110)
[2024-07-29] MEDS: POTASSIUM BICARBONATE/CIT AC 20 MEQ TABLET.EFF PO ONE (10:29)
--- NOTE | 2024-07-29 11:05 | P.PN ---
Subjective Patient is seen in follow-up for acute kidney injury. Renal function improving. Currently on normal saline. Denies chest pain or shortness of breath. On clear liquid diet. Has [place] catheter. Nonoliguric. Vital signs are stable. General: No acute distress. HEENT: Head exam is unremarkable. LUNGS: No audible rhonchi or wheezes. HEART: Rate and Rhythm are regular. ABDOMEN: Nontender. EXTREMITITES: 1+ edema. Objective - Vital Signs Vital signs: Vital Signs Temp 98.6 F 07/29/24 07:33 Pulse 80 07/29/24 07:33 Resp 17 07/29/24 07:33 BP 165/64 07/29/24 07:33 Pulse Ox 96 07/29/24 07:33 FiO2 Intake & Output 07/28/24 07/29/24 07/29/24 18:59 06:59 18:59 Intake Total 20 1060 Output Total 650 600 Balance -650 20 460 Weight 81.647 kg Intake: Oral 20 1060 Output: Urine 650 600 Other: Voiding Method Indwelling Catheter Indwelling Catheter Indwelling Catheter # Bowel Movements 1 - Labs CBC & Chem 7: 07/29/24 02:42 07/29/24 02:42 Labs: Abnormal Lab Results - Last 24 Hours (Table) 07/28/24 07/28/24 07/29/24 Range/Units 06:18 20:56 02:42 WBC 10.7 H (3.8-10.6) k/uL RBC 2.53 L (4.30-5.90) m/uL Hgb 7.4 L (13.0-17.5) gm/dL Hct 22.9 L (39.0-53.0) % Potassium 2.9 L (3.5-5.1) mmol/L Chloride 116 H (98-107) mmol/L BUN 69 H (9-20) mg/dL Creatinine 2.21 H (0.66-1.25) mg/dL Glucose 131 H (74-99) mg/dL POC Glucose (mg/dL) 149 H (70-110) mg/dL Calcium 7.2 L (8.4-10.2) mg/dL AST (17-59) U/L ALT (4-49) U/L Total Protein (6.3-8.2) g/dL Albumin (3.5-5.0) g/dL 07/29/24 07/29/24 Range/Units 02:42 06:29 WBC (3.8-10.6) k/uL RBC (4.30-5.90) m/uL Hgb (13.0-17.5) gm/dL Hct (39.0-53.0) % Potassium 3.3 L (3.5-5.1) mmol/L Chloride 113 H (98-107) mmol/L BUN 41 H (9-20) mg/dL Creatinine 1.60 H (0.66-1.25) mg/dL Glucose 105 H (74-99) mg/dL POC Glucose (mg/dL) 116 H (70-110) mg/dL Calcium 7.2 L (8.4-10.2) mg/dL AST 114 H (17-59) U/L ALT 156 H (4-49) U/L Total Protein 5.0 L (6.3-8.2) g/dL Albumin 2.3 L (3.5-5.0) g/dL Assessment and Plan Plan: Assessment: 1. Acute kidney injury secondary to ATN. Creatinine 0.3 in April 2021. Creatinine peaked at 3.64 this admission and improved to 1.6 today. No hydronephrosis noted on CT. UA shows granular casts which is suggestive of ATN. Serologies negative so far. 2. Acute blood loss anemia status post blood transfusions. Hemoglobin 7.4 today. 3. Metabolic acidosis secondary to acute kidney injury status post bicarb drip. Improved. 4. History of BPH and prostatomegaly. 5. Acute cholecystitis with cholelithiasis status post laparoscopic cholecystectomy July 24, 2024. 6. Hypokalemia from poor intake. 7. Hypomagnesemia from poor intake. Plan: Hep-Lock IV fluids. Follow-up serologies. Negative so far. Avoid nephrotoxins. Replace potassium. Add oral magnesium oxide.
[2024-07-29] MEDS: MAGNESIUM OXIDE 400 MG TAB PO SCH (11:48)
--- NOTE | 2024-07-29 13:55 | P.PN ---
Subjective Progress Note Date: 07/29/24 This is a pleasant 89-year-old male patient who was admitted back on 07/23/2024 with abdominal pain as a transfer from [place]. He was found to have cholecystitis gangrenous and had undergone a laparoscopic cholecystectomy on 07/24/2024. Follow-up CT scan of the abdomen from yesterday 07/27/2024 revealed severe phlegmon in the gallbladder fossa with air bubbles and edema extending into the posterior segment of the right lower liver, free IntraOp peritoneal air and hemoperitoneum. Chronic changes at the lung bases. He did have a drop in hemoglobin to 5.7. He is status post 4 units of packed red blood cells this admission. Current hemoglobin 7.6. White count 10.2. INR 1.5. Sodium 141. Potassium 2.9. Bicarb 24. BUN 69. Creatinine 2.21. Glucose 131. He remains on ceftriaxone and Flagyl. D5W with 3 A of bicarb at 100 mL/h. Lovenox for DVT prophylaxis. We are consulted for possible admission to the intensive care unit. He is seen today on the regular medical floor. He is sitting up in a chair. Awake and alert in no acute distress. Maintaining good O2 saturations in the 90s on room air. He is afebrile. Hemodynamically stable. The patient is seen today July 29, 2024 in follow-up on the regular medical floor. He is currently sitting up in a chair. Awake and alert in no acute distress. He is maintaining O2 saturations in the 90s on room air. He is status post 4 units of packed red blood cells this admission. Current hemoglobin 7.4. White count 10.7. Platelets 203. Sodium 142. Potassium 3.3. Bicarb 28. BUN 41. Creatinine 1.60. Glucose 105. AST 114. ALT 156. He remains on ceftriaxone and Flagyl. Tolerating a clear liquid diet. Objective - Vital Signs Vital signs: Vital Signs Temp 98.6 F 07/29/24 07:33 Pulse 80 07/29/24 07:33 Resp 17 07/29/24 07:33 BP 165/64 07/29/24 07:33 Pulse Ox 96 07/29/24 07:33 FiO2 Intake & Output 07/28/24 07/29/24 07/29/24 18:59 06:59 18:59 Intake Total 20 1060 Output Total 650 600 Balance -650 20 460 Weight 81.647 kg Intake: Oral 20 1060 Output: Urine 650 600 Other: Voiding Method Indwelling Catheter Indwelling Catheter Indwelling Catheter # Bowel Movements 1 - Exam GENERAL EXAM: Alert, 89-year-old gentleman, up in a chair, on room air, in no apparent distress. HEAD: Normocephalic. EYES: Normal reaction of pupils, equal size. NOSE: Clear with pink turbinates. THROAT: No erythema or exudates. NECK: No masses, no JVD. CHEST: No chest wall deformity. LUNGS: Equal air entry with crackles in the bilateral bases. CVS: S1 and S2 normal with no audible murmur, regular rhythm. ABDOMEN: Abdominal dressing dry and intact, no hepatosplenomegaly, normal bowel sounds, no guarding or rigidity. SPINE: No scoliosis or deformity SKIN: No rashes CENTRAL NERVOUS SYSTEM: No focal deficits, tone is normal in all 4 extremities. EXTREMITIES: There is no peripheral edema. No clubbing, no cyanosis. Peripheral pulses are intact. - Labs CBC & Chem 7: 07/29/24 02:42 07/29/24 02:42 Labs: Abnormal Lab Results - Last 24 Hours (Table) 07/28/24 07/29/24 07/29/24 Range/Units 20:56 02:42 02:42 WBC 10.7 H (3.8-10.6) k/uL RBC 2.53 L (4.30-5.90) m/uL Hgb 7.4 L (13.0-17.5) gm/dL Hct 22.9 L (39.0-53.0) % Potassium 3.3 L (3.5-5.1) mmol/L Chloride 113 H (98-107) mmol/L BUN 41 H (9-20) mg/dL Creatinine 1.60 H (0.66-1.25) mg/dL Glucose 105 H (74-99) mg/dL POC Glucose (mg/dL) 149 H (70-110) mg/dL Calcium 7.2 L (8.4-10.2) mg/dL AST 114 H (17-59) U/L ALT 156 H (4-49) U/L Total Protein 5.0 L (6.3-8.2) g/dL Albumin 2.3 L (3.5-5.0) g/dL 07/29/24 Range/Units 06:29 WBC (3.8-10.6) k/uL RBC (4.30-5.90) m/uL Hgb (13.0-17.5) gm/dL Hct (39.0-53.0) % Potassium (3.5-5.1) mmol/L Chloride (98-107) mmol/L BUN (9-20) mg/dL Creatinine (0.66-1.25) mg/dL Glucose (74-99) mg/dL POC Glucose (mg/dL) 116 H (70-110) mg/dL Calcium (8.4-10.2) mg/dL AST (17-59) U/L ALT (4-49) U/L Total Protein (6.3-8.2) g/dL Albumin (3.5-5.0) g/dL Assessment and Plan Assessment: Abdominal pain secondary to acute cholecystitis, gangrenous. Status post laparoscopic cholecystectomy on 07/24/2024 Acute blood loss anemia secondary to above requiring 4 units of packed red blood cells. Current hemoglobin 7.4 Acute kidney injury, secondary to acute tubular necrosis, improving Hypokalemia, receiving replacement therapy Transaminitis secondary to above Hypertension Hyperlipidemia Glaucoma BPH GERD Coronary disease with previous stent placement Plan: The patient was seen and evaluated Labs and medications reviewed Continue incentive spirometer Continue the current treatment plan Tolerating a clear liquid diet Continue PT/OT We will continue to follow I have personally seen and examined the patient, performed the documentation and the assessment and plan as written. Number of minutes spent on the visit: 10 Dictation was produced using [employer] dictation software. Please excuse any grammatical, word or spelling errors.
--- NOTE | 2024-07-29 14:30 | P.PN ---
Subjective Progress Note Date: 07/29/24 CHIEF COMPLAINT: Gangrenous cholecystitis HISTORY OF PRESENT ILLNESS: Patient is postop day #5 status post laparoscopic cholecystectomy. Patient sitting up at bedside chair. His pain is controlled. He is having flatus. Denies any nausea or vomiting. Hemoglobin roughly the same at 7.4. Hemoglobin was 7.6 yesterday. Afebrile. WBC 10.7 potassium 3.3 LFTs trending down. PHYSICAL EXAM: VITAL SIGNS: Reviewed. GENERAL: no acute distress. ABDOMEN: Soft. Nondistended. Patient has bruising along the right lower side of the abdomen. NEUROLOGIC: Alert and oriented. Cranial nerves II through XII grossly intact. ASSESSMENT: 1. Gangrenous cholecystitis 2. Acute blood loss anemia due to postoperative bleeding 3. Elevated LFTs trending downwards 4. Melanotic stools likely due to iron pills PLAN: -Advance diet to full liquids and then to low fat in AM -Continue to monitor hemoglobin -Continue antibiotics -Electrolytes are being replaced Physician [employer] note has been reviewed by physician. Signing provider agrees with the documented findings, assessment, and plan of care. Objective - Vital Signs Vital signs: Vital Signs Temp 98.8 F 07/29/24 13:35 Pulse 79 07/29/24 13:35 Resp 16 07/29/24 13:35 BP 179/57 07/29/24 13:35 Pulse Ox 95 07/29/24 13:35 FiO2 Intake & Output 07/28/24 07/29/24 07/29/24 18:59 06:59 18:59 Intake Total 20 1060 Output Total 650 600 Balance -650 20 460 Weight 81.647 kg Intake: Oral 20 1060 Output: Urine 650 600 Other: Voiding Method Indwelling Catheter Indwelling Catheter Indwelling Catheter # Bowel Movements 1 - Labs CBC & Chem 7: 07/29/24 02:42 07/29/24 02:42 Labs: Abnormal Lab Results - Last 24 Hours (Table) 07/28/24 07/29/24 07/29/24 Range/Units 20:56 02:42 02:42 WBC 10.7 H (3.8-10.6) k/uL RBC 2.53 L (4.30-5.90) m/uL Hgb 7.4 L (13.0-17.5) gm/dL Hct 22.9 L (39.0-53.0) % Potassium 3.3 L (3.5-5.1) mmol/L Chloride 113 H (98-107) mmol/L BUN 41 H (9-20) mg/dL Creatinine 1.60 H (0.66-1.25) mg/dL Glucose 105 H (74-99) mg/dL POC Glucose (mg/dL) 149 H (70-110) mg/dL Calcium 7.2 L (8.4-10.2) mg/dL AST 114 H (17-59) U/L ALT 156 H (4-49) U/L Total Protein 5.0 L (6.3-8.2) g/dL Albumin 2.3 L (3.5-5.0) g/dL 07/29/24 Range/Units 06:29 WBC (3.8-10.6) k/uL RBC (4.30-5.90) m/uL Hgb (13.0-17.5) gm/dL Hct (39.0-53.0) % Potassium (3.5-5.1) mmol/L Chloride (98-107) mmol/L BUN (9-20) mg/dL Creatinine (0.66-1.25) mg/dL Glucose (74-99) mg/dL POC Glucose (mg/dL) 116 H (70-110) mg/dL Calcium (8.4-10.2) mg/dL AST (17-59) U/L ALT (4-49) U/L Total Protein (6.3-8.2) g/dL Albumin (3.5-5.0) g/dL
--- NOTE | 2024-07-29 17:54 | P.PN ---
Progress Note - Text Progress Note Date: 07/29/24 Chief Complaint: Abdominal pain This is a pleasant 89-year-old patient, follows with Dr. Emanuel Hogan. Chronic stable medical conditions include CAD with stent over 20 years ago, hyperlipidemia, hypertension, glaucoma, blind in the left eye, prostate disorder . For for 2 days patient been having lower abdominal pain. Some nausea vomiting. Denied any fever and chills. CT scan in the ER showed gallbladder to be mildly distended and possibly some gallstones. Enlarged prostate. This morning patient is n.p.o. denies any cardiac symptoms. No respiratory symptoms. Patient had a stress test about a year ago that was negative. July 25: Patient underwent laparoscopic cholecystectomy with Dr Wells. Found to have a gangrenous gallbladder. Still having some abdominal pain. On IV antibiotics. Tired. at the bedside. Placed on regular diet by surgery. July 26: Yesterday evening patient started vomiting. This morning put on clear liquids by surgery. Remains on IV ceftriaxone and IV Flagyl. Also LFTs have gone up. Tired. Discussed with patient sisters. Follow-up with surgery Dr Wells. Stop Lipitor July 27: Patient dropped hemoglobin this morning to 5.7. 2 more units of blood given. Told the nurse to give it a bit faster. Because of hypotension. An acute bleed. Bruising on the flank. I ordered the CT scan earlier. Showed a ill-defined hypodensity with gas bubbles consistent with acute severe infectious process. Also ill-defined decreased density in the right lobe of the liver as well. Free intraperitoneal air. Dense intraperitoneal fluid adjacent to the liver edge consistent with hemoperitoneum. Discussed with patient's one of the sisters at the bedside. The nurse has spoken to Dr. Wells. His decision regarding further course of action. On clear liquids. Bicarbonate drip. IV Flagyl and IV ceftriaxone. Rather tired. July 28: Patient seen this afternoon. No abdominal pain. Has had some dark stool. No nausea vomiting. Remains on clear liquids. Patient's sister at the bedside. Hemoglobin remained stable. Patient received 3 units of blood yesterday. Blood pressure is good. No increase of size and the bruising along the flank. Which is marked with a skin marker. Bicarbonate drip discontinued. Put on normal saline 75 cc an hour. IV ceftriaxone IV Flagyl. July 29: Up in recliner. Feeling better. Blood pressure is good. No further drop in hemoglobin. Did have some darkish stool but not bloody. Per surgery advance to full liquid diet. Spoke to the patient and sister at the bedside. Remains on IV ceftriaxone and IV Flagyl. No abdominal pain. Active Medications Brimonidine Tartrate (Brimonidine Tartrate 0.2% Drops 5 Ml Btl) 1 drops BOTH EYES BID SOILA Last Admin: 07/29/24 08:17 Dose: 1 drops Calcium Carbonate/Glycine (Calcium Carbonate 500 Mg Chewable) 1,000 mg PO QID PRN PRN Reason: Heartburn Last Admin: 07/26/24 09:18 Dose: 1,000 mg Dorzolamide/Timolol (Dorzolamide-Timolol 2.23%/0.68 10ml Btl) 1 drops BOTH EYES BID SOILA Last Admin: 07/29/24 08:18 Dose: 1 drops Ferrous Sulfate (Ferrous Sulfate 325 Mg Tab) 325 mg PO DAILY SOILA Last Admin: 07/29/24 08:18 Dose: 325 mg Hydromorphone HCl (Hydromorphone 0.5 Mg/0.5 Ml Syringe) 0.5 mg IVP Q3HR PRN PRN Reason: Moderate Pain (Scale 4 to 6) Last Admin: 07/29/24 17:42 Dose: 0.5 mg Metronidazole 500 mg/ IV (Solution) 100 mls @ 100 mls/hr IVPB Q8HR SOILA; Protocol Last Admin: 07/29/24 15:30 Dose: 100 mls/hr Ceftriaxone Sodium 2 gm/ (Sodium Chloride) 50 mls @ 100 mls/hr IVPB Q24HR SOILA; Protocol Last Admin: 07/29/24 08:18 Dose: 100 mls/hr Latanoprost (Latanoprost 0.005% Ophth Drops 2.5 Ml Btl) 1 drops BOTH EYES HS SOILA Last Admin: 07/28/24 21:12 Dose: 1 drops Losartan Potassium (Losartan 25 Mg Tab) 25 mg PO HS SOILA Last Admin: 07/28/24 21:34 Dose: 25 mg Magnesium Oxide (Magnesium Oxide 400 Mg Tab) 400 mg PO BID SOILA Last Admin: 07/29/24 11:48 Dose: 400 mg Metoclopramide HCl (Metoclopramide 5 Mg/Ml 2 Ml Vial) 10 mg IVP Q6HR SOILA Last Admin: 07/29/24 17:26 Dose: 10 mg Miscellaneous Information (Potassium Replacement Protocol 1 Each Misc) 1 each MISCELLANE DAILY PRN; Protocol PRN Reason: Per Protocol Naloxone HCl (Naloxone 0.4 Mg/Ml 1 Ml Vial) 0.2 mg IV Q2M PRN PRN Reason: Opioid Reversal Ondansetron HCl (Ondansetron 4 Mg/2 Ml Vial) 4 mg IVP Q8HR PRN PRN Reason: Nausea And Vomiting Last Admin: 07/26/24 16:57 Dose: 4 mg Pantoprazole Sodium (Pantoprazole 40 Mg/10 Ml Vial) 40 mg IVP DAILY [facility] Last Admin: 07/29/24 08:18 Dose: 40 mg Tamsulosin HCl (Tamsulosin 0.4 Mg Cap.Er.24h) 0.4 mg PO DAILY [facility] Last Admin: 07/29/24 08:18 Dose: 0.4 mg Trazodone HCl (Trazodone Hcl 100 Mg Tab) 100 mg PO HS [facility] Last Admin: 07/28/24 21:12 Dose: 100 mg 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 . No smoking no alcohol Physical examination: VITAL SIGNS: 98.8, 79, 16, 165 x 64, 96% room air GENERAL: Up in recliner, awake EYES: Pupils equal. Conjunctiva pale HEENT: External appearance of nose and ears normal, oral cavity grossly normal. NECK: JVD not raised; masses not palpable. HEART: First and second heart sounds are normal; no edema. LUNGS: Respiratory rate normal; clear to auscultation. ABDOMEN: Soft, some distention, minimal tenderness, no guarding rigidity , liver spleen not palpable, no masses palpable. Montgomery catheter. Bruising on the right flank-no increased PSYCH: Tired when answering questions appropriately MUSCULOSKELETAL:No Clubbing/cyanosis;muscles-grossly intact INVESTIGATIONS, reviewed in the clinical context: July 29: White count 10.7 hemoglobin 7.4 potassium 3.3 BUN 41 creatinine 1.6 AST 114 ALT 156 July 28: White count 10.2 hemoglobin 7.6 potassium 2.9 BUN 69 creatinine 2.21 July 27: White count 10.5 hemoglobin 5.7 platelets 159 potassium 3.2 bicarb 15 BUN 113 creatinine 3.29 total bilirubin 0.5 AST 251 ALT 236 July 26: White count 13.3 hemoglobin 7.3 platelets 191 sodium 137 potassium 3.6 bicarb 17 BUN 79 creatinine 3.64 total bilirubin 0.6 AST 721 ALT 407 July 25: Sodium 137 potassium 3.9 BUN 48 creatinine 3.32 July 24, 2024: White count 15.6 hemoglobin 9.7 platelets 185 sodium 143 potassium 3.6 BUN 36 creatinine 2.86 July 23: White count 9.4 hemoglobin 12.7 BUN 41 creatinine 3.[address] abdomen pelvis: No free air. Some gallbladder mildly distended. Possible gallstones. Prostatomegaly. Possible evidence of a history of interstitial lung disease. Cardiomegaly with some coronary artery atherosclerosis Abdominal ultrasound: Hepatomegaly. Gallstones. Mildly prominent gallbladder with borderline mild wall thickening. Distal CBD prominent 8 mm. EKG tracing personally reviewed by me-sinus rhythm. Nonspecific ST-T wave changes Assessment plan: -Acute cholecystitis with gallstones on presentation. Laparoscopic cholecystectomy for gangrenous cholecystitis IV ceftriaxone. IV Flagyl. Being followed by Dr Wells. Full liquid diet -Hyperlipidemia Lipitor 40 mg a day-currently held -Glaucoma continue eyedrops -Acute postoperative blood loss anemia, at surgical site perihepatic Received 4 units of blood -Essential hypertension, blood pressure running high Increase losartan to 50 mg nightly -Metabolic acidosis from kidney injury IV bicarbonate drip -GERD Prilosec 20 mg a day -Hypokalemia Replace potassium -BPH Flomax 0.4 mg a day -CAD with stent about 20 years ago. Had a stress test a year ago that was negative. Lipitor-hold because of increased LFTs -Kidney injury, acute versus chronic: Not improving Patient's last documented creatinine was 0.7 in April 2021. On admission 3. IV fluids. Repeat labs Nephrology following -Post operative transaminitis, with normal bilirubin: Slow response DC [place]. DC Lipitor. -Full code Patient is off IV fluids. Increase Cozaar to 50 mg nightly. Advance to full liquid and advance as tolerated by surgery. Increase activity. Past Medical History Past Medical History: Coronary Artery Disease (CAD), Eye Disorder, Hyperlipidemia, Hypertension, Prostate Disorder, Sleep Apnea/CPAP/BIPAP Additional Past Medical History / Comment(s): states not currently taking HTN meds, glaucoma, blind left eye History of Any Multi-Drug Resistant Organisms: None Reported Past Surgical History: Heart Catheterization With Stent Additional Past Surgical History / Comment(s): jodee cataract, hemmoroidectomy, one cardiac stent Past Anesthesia/Blood Transfusion Reactions: No Reported Reaction Date of Last Stent Placement:: 2007 Past Psychological History: No Psychological Hx Reported Smoking Status: Former smoker Past Alcohol Use History: Rare Past Drug Use History: None Reported
[2024-07-29] MEDS: LOSARTAN 50 MG TAB PO SCH (19:56)
[2024-07-30] MEDS: PANTOPRAZOLE 40 MG TABLET PO SCH (06:42)
[2024-07-30] MEDS: LOSARTAN 50 MG TAB PO STA (08:24)
[2024-07-30 08:45] LABS: Magnesium 1.5 mg/dL (1.5-2.4)
[2024-07-30 09:03] LABS: BUN/Creat Ratio 19.23 Ratio (12.00-20.00); Calcium 7.7 mg/dL (8.7-10.3); Chloride 108 mmol/L (96-109); Glucose 109 mg/dL (70-110); Potassium 3.5 mmol/L (3.5-5.5); Sodium 142 mmol/L (135-145)
--- NOTE | 2024-07-30 10:26 | P.PN ---
Subjective Patient is seen in follow-up for acute kidney injury. Renal function improving. Denies chest pain or shortness of breath. On low-fat diet. Has Montgomery catheter. Nonoliguric. Vital signs are stable. General: No acute distress. HEENT: Head exam is unremarkable. LUNGS: No audible rhonchi or wheezes. HEART: Rate and Rhythm are regular. ABDOMEN: Nontender. EXTREMITITES: Trace edema. Objective - Vital Signs Vital signs: Vital Signs Temp 97.8 F 07/30/24 07:08 Pulse 83 07/30/24 07:08 Resp 18 07/30/24 07:08 BP 191/67 07/30/24 07:08 Pulse Ox 96 07/30/24 07:08 FiO2 Intake & Output 07/29/24 07/30/24 07/30/24 18:59 06:59 18:59 Intake Total 1060 Output Total 1600 1200 Balance -540 -1200 Intake: Oral 1060 Output: Urine 1600 1200 Other: Voiding Method Indwelling Catheter Indwelling Catheter Indwelling Catheter - Labs CBC & Chem 7: 07/29/24 02:42 07/30/24 03:19 Labs: Abnormal Lab Results - Last 24 Hours (Table) 07/30/24 Range/Units 03:19 Est GFR (CKD-EPI) 53 L (>=60) Calcium 7.7 L (8.7-10.3) mg/dL Assessment and Plan Plan: Assessment: 1. Acute kidney injury secondary to ATN. Creatinine 0.3 in April 2021. Creatinine peaked at 3.64 this admission and improved to 1.3 today. No hydronephrosis noted on CT. UA shows granular casts which is suggestive of ATN. Serologies negative so far. 2. Acute blood loss anemia status post blood transfusions. Hemoglobin 7.4 yesterday. 3. Metabolic acidosis secondary to acute kidney injury status post bicarb drip. Improved. 4. History of BPH and prostatomegaly. 5. Acute cholecystitis with cholelithiasis status post laparoscopic cholecystectomy July 24, 2024. 6. Hypokalemia from poor intake. Replaced. 7. Hypomagnesemia from poor intake. On oral magnesium oxide. Plan: Maintain off IV fluids. Follow-up serologies. Negative so far. Avoid nephrotoxins. Replace potassium. 2 g IV magnesium sulfate today. Okay to DC Montgomery catheter from nephrology standpoint. Add hydralazine 50 mg 3 times daily. Hold for systolic blood pressure less than 120.
[2024-07-30] MEDS: POTASSIUM CHLORIDE ER 20 MEQ TAB.ER PO STA (10:39)
[2024-07-30] MEDS: hydrALAZINE HCL 50 MG TAB PO SCH (10:40)
[2024-07-30 11:24] LABS: Glucose,Whole Blood 144 mg/dL (70-110)
[2024-07-30] MEDS: MAGNESIUM SULFATE-D5W PMX 1 GM in DEXTROSE/WATER 1 100ML.BAG IVPB SCH (11:44)
--- NOTE | 2024-07-30 13:17 | P.PN ---
Subjective Progress Note Date: 07/30/24 This is a pleasant 89-year-old male patient who was admitted back on 07/23/2024 with abdominal pain as a transfer from [place]. He was found to have cholecystitis gangrenous and had undergone a laparoscopic cholecystectomy on 07/24/2024. Follow-up CT scan of the abdomen from yesterday 07/27/2024 revealed severe phlegmon in the gallbladder fossa with air bubbles and edema extending into the posterior segment of the right lower liver, free IntraOp peritoneal air and hemoperitoneum. Chronic changes at the lung bases. He did have a drop in hemoglobin to 5.7. He is status post 4 units of packed red blood cells this admission. Current hemoglobin 7.6. White count 10.2. INR 1.5. Sodium 141. Potassium 2.9. Bicarb 24. BUN 69. Creatinine 2.21. Glucose 131. He remains on ceftriaxone and Flagyl. D5W with 3 A of bicarb at 100 mL/h. Lovenox for DVT prophylaxis. We are consulted for possible admission to the intensive care unit. He is seen today on the regular medical floor. He is sitting up in a chair. Awake and alert in no acute distress. Maintaining good O2 saturations in the 90s on room air. He is afebrile. Hemodynamically stable. The patient is seen today July 29, 2024 in follow-up on the regular medical floor. He is currently sitting up in a chair. Awake and alert in no acute distress. He is maintaining O2 saturations in the 90s on room air. He is status post 4 units of packed red blood cells this admission. Current hemoglobin 7.4. White count 10.7. Platelets 203. Sodium 142. Potassium 3.3. Bicarb 28. BUN 41. Creatinine 1.60. Glucose 105. AST 114. ALT 156. He remains on ceftriaxone and Flagyl. Tolerating a clear liquid diet. The patient is seen today July 30, 2024 in follow-up on the regular medical floor. He is awake and alert in no acute distress. Sitting up in a chair at the bedside. Maintaining good O2 saturations in the mid 90s on room air. Has been afebrile. Somewhat hypertensive. He is status post 4 units of packed red blood cells this admission. Current hemoglobin 7.4. Glucose 144. Sodium 142. Potassium 3.5. Bicarb 25. BUN 25. Creatinine 1.3. He remains on ceftriaxone. Objective - Vital Signs Vital signs: Vital Signs Temp 97.8 F 07/30/24 07:08 Pulse 83 07/30/24 07:08 Resp 18 07/30/24 07:08 BP 191/67 07/30/24 07:08 Pulse Ox 96 07/30/24 07:08 FiO2 Intake & Output 07/29/24 07/30/24 07/30/24 18:59 06:59 18:59 Intake Total 1060 Output Total 1600 1200 500 Balance -540 -1200 -500 Weight 81.647 kg Intake: Oral 1060 Output: Urine 1600 1200 500 Other: Voiding Method Indwelling Catheter Indwelling Catheter Indwelling Catheter - Exam GENERAL EXAM: Alert, pleasant 89-year-old gentleman, on room air, in no apparent distress. HEAD: Normocephalic. EYES: Normal reaction of pupils, equal size. NOSE: Clear with pink turbinates. THROAT: No erythema or exudates. NECK: No masses, no JVD. CHEST: No chest wall deformity. LUNGS: Equal air entry with crackles in the bilateral bases. CVS: S1 and S2 normal with no audible murmur, regular rhythm. ABDOMEN: Abdominal dressing dry and intact, no hepatosplenomegaly, normal bowel sounds, no guarding or rigidity. SPINE: No scoliosis or deformity SKIN: No rashes CENTRAL NERVOUS SYSTEM: No focal deficits, tone is normal in all 4 extremities. EXTREMITIES: There is no peripheral edema. No clubbing, no cyanosis. Peripheral pulses are intact. - Labs CBC & Chem 7: 07/29/24 02:42 07/30/24 03:19 Labs: Abnormal Lab Results - Last 24 Hours (Table) 07/30/24 07/30/24 Range/Units 03:19 11:23 Est GFR (CKD-EPI) 53 L (>=60) POC Glucose (mg/dL) 144 H (70-110) mg/dL Calcium 7.7 L (8.7-10.3) mg/dL Assessment and Plan Assessment: Abdominal pain secondary to acute cholecystitis, gangrenous. Status post laparoscopic cholecystectomy on 07/24/2024 Acute blood loss anemia secondary to above requiring 4 units of packed red blood cells. Current hemoglobin 7.4 Acute kidney injury, secondary to acute tubular necrosis, improving Hypokalemia, receiving replacement therapy Transaminitis secondary to above Hypertension Hyperlipidemia Glaucoma BPH GERD Coronary disease with previous stent placement Plan: The patient was seen and evaluated Labs and medications reviewed Stable and on room air Continue incentive spirometer Continue ceftriaxone Tolerating a low-fat diet Continue PT/OT Plan is for home with home care at discharge I have personally seen and examined the patient, performed the documentation and the assessment and plan as written. Number of minutes spent on the visit: 10 Dictation was produced using [employer] dictation software. Please excuse any grammatical, word or spelling errors.
--- NOTE | 2024-07-30 14:42 | P.PN ---
Subjective Progress Note Date: 07/30/24 CHIEF COMPLAINT: Gangrenous cholecystitis HISTORY OF PRESENT ILLNESS: Patient is postop day #6 status post laparoscopic cholecystectomy. Patient sitting up at bedside chair. His pain is controlled. Patient reports having a bowel movement this morning. He is tolerating low-fat diet. Patient seen and examined with Dr. Wells PHYSICAL EXAM: VITAL SIGNS: Reviewed. GENERAL: no acute distress. ABDOMEN: Soft. Nondistended. bruising along the right lower side of the abdomen is less. NEUROLOGIC: Alert and oriented. Cranial nerves II through XII grossly intact. ASSESSMENT: 1. Gangrenous cholecystitis 2. Acute blood loss anemia due to postoperative bleeding 3. Elevated LFTs trending downwards PLAN: -Diet advanced to low-fat this morning -Continue antibiotics -Discussed case with family preservation caseworker service. They are looking into possible placement for patient at discharge -manager community and noted this afternoon that patient appears to be jaundice. Check CMP to evaluate total bili and LFTs -Encourage patient to increase activity level -Nephrology replacing potassium -Lovenox remains on hold due to the acute blood loss anemia Physician Title Camera Operator note has been reviewed by physician. Signing provider agrees with the documented findings, assessment, and plan of care. Objective - Vital Signs Vital signs: Vital Signs Temp 97.8 F 07/30/24 14:00 Pulse 90 07/30/24 14:00 Resp 18 07/30/24 14:00 BP 142/75 07/30/24 14:00 Pulse Ox 97 07/30/24 14:00 FiO2 Intake & Output 07/29/24 07/30/24 07/30/24 18:59 06:59 18:59 Intake Total 1060 Output Total 1600 1200 500 Balance -540 -1200 -500 Weight 81.647 kg Intake: Oral 1060 Output: Urine 1600 1200 500 Other: Voiding Method Indwelling Catheter Indwelling Catheter Indwelling Catheter - Labs CBC & Chem 7: 07/29/24 02:42 07/30/24 03:19 Labs: Abnormal Lab Results - Last 24 Hours (Table) 07/30/24 07/30/24 Range/Units 03:19 11:23 Est GFR (CKD-EPI) 53 L (>=60) POC Glucose (mg/dL) 144 H (70-110) mg/dL Calcium 7.7 L (8.7-10.3) mg/dL
[2024-07-30 15:03] LABS: ALT 170 U/L (4-49); AST 203 U/L (17-59); African American GFR (CKD) 63 (>60 ml/min/1.73 sqM); Albumin 2.6 g/dL (3.5-5.0); Albumin/Globulin Ratio 0.8; Alkaline Phosphatase 492 U/L (38-126); Anion Gap 6 mmol/L; Blood Urea Nitrogen 24 mg/dL (9-20); Calcium 7.7 mg/dL (8.4-10.2); Carbon Dioxide 24 mmol/L (22-30); Chloride 109 mmol/L (98-107); Globulin 3.2 g/dL; Glucose 153 mg/dL (74-99); Non-African American GFR(CKD) 54 (>60 ml/min/1.73 sqM); Potassium 3.5 mmol/L (3.5-5.1); Sodium 139 mmol/L (137-145); Total Bilirubin 7.6 mg/dL (0.2-1.3); Total Protein 5.8 g/dL (6.3-8.2)
[2024-07-30 16:38] LABS: Glucose,Whole Blood 116 mg/dL (70-110)
--- NOTE | 2024-07-30 18:28 | P.PN ---
Progress Note - Text Progress Note Date: 07/30/24 Chief Complaint: Abdominal pain This is a pleasant 89-year-old patient, follows with Dr. Emanuel Hogan. Chronic stable medical conditions include CAD with stent over 20 years ago, hyperlipidemia, hypertension, glaucoma, blind in the left eye, prostate disorder . For for 2 days patient been having lower abdominal pain. Some nausea vomiting. Denied any fever and chills. CT scan in the ER showed gallbladder to be mildly distended and possibly some gallstones. Enlarged prostate. This morning patient is n.p.o. denies any cardiac symptoms. No respiratory symptoms. Patient had a stress test about a year ago that was negative. July 25: Patient underwent laparoscopic cholecystectomy with Dr Wells. Found to have a gangrenous gallbladder. Still having some abdominal pain. On IV antibiotics. Tired. at the bedside. Placed on regular diet by surgery. July 26: Yesterday evening patient started vomiting. This morning put on clear liquids by surgery. Remains on IV ceftriaxone and IV Flagyl. Also LFTs have gone up. Tired. Discussed with patient sisters. Follow-up with surgery Dr Wells. Stop Lipitor July 27: Patient dropped hemoglobin this morning to 5.7. 2 more units of blood given. Told the nurse to give it a bit faster. Because of hypotension. An acute bleed. Bruising on the flank. I ordered the CT scan earlier. Showed a ill-defined hypodensity with gas bubbles consistent with acute severe infectious process. Also ill-defined decreased density in the right lobe of the liver as well. Free intraperitoneal air. Dense intraperitoneal fluid adjacent to the liver edge consistent with hemoperitoneum. Discussed with patient's one of the sisters at the bedside. The nurse has spoken to Dr. Wells. His decision regarding further course of action. On clear liquids. Bicarbonate drip. IV Flagyl and IV ceftriaxone. Rather tired. July 28: Patient seen this afternoon. No abdominal pain. Has had some dark stool. No nausea vomiting. Remains on clear liquids. Patient's sister at the bedside. Hemoglobin remained stable. Patient received 3 units of blood yesterday. Blood pressure is good. No increase of size and the bruising along the flank. Which is marked with a skin marker. Bicarbonate drip discontinued. Put on normal saline 75 cc an hour. IV ceftriaxone IV Flagyl. July 29: Up in recliner. Feeling better. Blood pressure is good. No further drop in hemoglobin. Did have some darkish stool but not bloody. Per surgery advance to full liquid diet. Spoke to the patient and sister at the bedside. Remains on IV ceftriaxone and IV Flagyl. No abdominal pain. July 30: Patient blood pressures are running higher. Apparently patient refused his medication last night. Told the nurse this morning to make sure that it is given. Also patient put on hydralazine. Tolerating a diet. No abdominal pain. Creatinine has come down. Spoke to the patient and sister at the bedside. Cholestatic picture. Increase in LFTs. Did inform Dr Wells. Consult Dr. Manfred Perez Active Medications Brimonidine Tartrate (Brimonidine Tartrate 0.2% Drops 5 Ml Btl) 1 drops BOTH EYES BID [facility] Last Admin: 07/30/24 08:26 Dose: 1 drops Calcium Carbonate/Glycine (Calcium Carbonate 500 Mg Chewable) 1,000 mg PO QID PRN PRN Reason: Heartburn Last Admin: 07/26/24 09:18 Dose: 1,000 mg Dorzolamide/Timolol (Dorzolamide-Timolol 2.23%/0.68 10ml Btl) 1 drops BOTH EYES BID [facility] Last Admin: 07/30/24 08:27 Dose: 1 drops Ferrous Sulfate (Ferrous Sulfate 325 Mg Tab) 325 mg PO DAILY [facility] Last Admin: 07/30/24 08:27 Dose: 325 mg Hydralazine HCl (Hydralazine Hcl 50 Mg Tab) 50 mg PO TID [facility] Last Admin: 07/30/24 16:50 Dose: 50 mg Hydromorphone HCl (Hydromorphone 0.5 Mg/0.5 Ml Syringe) 0.5 mg IVP Q3HR PRN PRN Reason: Moderate Pain (Scale 4 to 6) Last Admin: 07/29/24 17:42 Dose: 0.5 mg Ceftriaxone Sodium 2 gm/ (Sodium Chloride) 50 mls @ 100 mls/hr IVPB Q24HR [facility]; Protocol Last Admin: 07/30/24 08:27 Dose: 100 mls/hr Latanoprost (Latanoprost 0.005% Ophth Drops 2.5 Ml Btl) 1 drops BOTH EYES HS [facility] Last Admin: 07/29/24 21:52 Dose: 1 drops Losartan Potassium (Losartan 50 Mg Tab) 50 mg PO [facility] Last Admin: 07/29/24 20:00 Dose: Not Given Magnesium Oxide (Magnesium Oxide 400 Mg Tab) 400 mg PO BID [facility] Last Admin: 07/30/24 08:27 Dose: 400 mg Metoclopramide HCl (Metoclopramide 5 Mg/Ml 2 Ml Vial) 10 mg IVP Q6HR [facility] Last Admin: 07/30/24 16:50 Dose: 10 mg Miscellaneous Information (Potassium Replacement Protocol 1 Each Misc) 1 each MISCELLANE DAILY PRN; Protocol PRN Reason: Per Protocol Naloxone HCl (Naloxone 0.4 Mg/Ml 1 Ml Vial) 0.2 mg IV Q2M PRN PRN Reason: Opioid Reversal Ondansetron HCl (Ondansetron 4 Mg/2 Ml Vial) 4 mg IVP Q8HR PRN PRN Reason: Nausea And Vomiting Last Admin: 07/26/24 16:57 Dose: 4 mg Pantoprazole Sodium (Pantoprazole 40 Mg Tablet) 40 mg PO AC-BRKFST [facility] Last Admin: 07/30/24 06:42 Dose: 40 mg Tamsulosin HCl (Tamsulosin 0.4 Mg Cap.Er.24h) 0.4 mg PO DAILY [facility] Last Admin: 07/30/24 08:27 Dose: 0.4 mg Trazodone HCl (Trazodone Hcl 100 Mg Tab) 100 mg PO [facility] Last Admin: 07/29/24 20:00 Dose: Not Given 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 . No smoking no alcohol Physical examination: VITAL SIGNS: 97.8, 83, 18, 142/75, 97% room air GENERAL: Up in recliner, awake EYES: Pupils equal. Conjunctiva pale HEENT: External appearance of nose and ears normal, oral cavity grossly normal. NECK: JVD not raised; masses not palpable. HEART: First and second heart sounds are normal; no edema. LUNGS: Respiratory rate normal; clear to auscultation. ABDOMEN: Soft, some distention, minimal tenderness, no guarding rigidity , liver spleen not palpable, no masses palpable. Montgomery catheter. Bruising on the right flank-no increased PSYCH: Tired when answering questions appropriately MUSCULOSKELETAL:No Clubbing/cyanosis;muscles-grossly intact INVESTIGATIONS, reviewed in the clinical context: July 30: Potassium 3.5 creatinine 1.18 AST 203 ALT 170 alkaline phosphatase 192. Total bilirubin 7.6 July 29: White count 10.7 hemoglobin 7.4 potassium 3.3 BUN 41 creatinine 1.6 AST 114 ALT 156 July 28: White count 10.2 hemoglobin 7.6 potassium 2.9 BUN 69 creatinine 2.21 July 27: White count 10.5 hemoglobin 5.7 platelets 159 potassium 3.2 bicarb 15 BUN 113 creatinine 3.29 total bilirubin 0.5 AST 251 ALT 236 July 26: White count 13.3 hemoglobin 7.3 platelets 191 sodium 137 potassium 3.6 bicarb 17 BUN 79 creatinine 3.64 total bilirubin 0.6 AST 721 ALT 407 July 25: Sodium 137 potassium 3.9 BUN 48 creatinine 3.32 July 24, 2024: White count 15.6 hemoglobin 9.7 platelets 185 sodium 143 potassium 3.6 BUN 36 creatinine 2.86 July 23: White count 9.4 hemoglobin 12.7 BUN 41 creatinine [address] abdomen pelvis: No free air. Some gallbladder mildly distended. Possible gallstones. Prostatomegaly. Possible evidence of a history of interstitial lung disease. Cardiomegaly with some coronary artery atherosclerosis Abdominal ultrasound: Hepatomegaly. Gallstones. Mildly prominent gallbladder with borderline mild wall thickening. Distal CBD prominent 8 mm. EKG tracing personally reviewed by me-sinus rhythm. Nonspecific ST-T wave changes Assessment plan: -Acute cholecystitis with gallstones on presentation. Laparoscopic cholecystectomy for gangrenous cholecystitis IV ceftriaxone. IV Flagyl. Being followed by Dr Wells. Regular diet -Acute increase in LFTs with a cholestatic pattern including bilirubin and alk phos.: Acute worsening Discussed with Dr Wells. Consult Dr. Manfred Perez for possible ERCP. Questionable stone -Hyperlipidemia Lipitor 40 mg a day-currently held -Glaucoma continue eyedrops -Acute postoperative blood loss anemia, at surgical site perihepatic Received 4 units of blood -Essential hypertension, blood pressure running high losartan to 50 mg nightly. Hydralazine added -Metabolic acidosis from kidney injury: Improved IV bicarbonate drip -GERD Prilosec 20 mg a day -Hypokalemia Replace potassium -BPH Flomax 0.4 mg a day -CAD with stent about 20 years ago. Had a stress test a year ago that was negative. Lipitor-hold because of increased LFTs -Kidney injury, acute versus chronic: Improving Patient's last documented creatinine was 0.7 in April 2021. On admission 3. IV fluids. Repeat labs Nephrology following -Post operative transaminitis, with normal bilirubin: Slow response DC Harmony. DC Lipitor. -Full code Make n.p.o. after midnight. Consult Dr. Manfred Perez for possible ERCP. If any liver offensive medications. Hydralazine added for blood pressure. Past Medical History Past Medical History: Coronary Artery Disease (CAD), Eye Disorder, Hyperlipidemia, Hypertension, Prostate Disorder, Sleep Apnea/CPAP/BIPAP Additional Past Medical History / Comment(s): states not currently taking HTN meds, glaucoma, blind left eye History of Any Multi-Drug Resistant Organisms: None Reported Past Surgical History: Heart Catheterization With Stent Additional Past Surgical History / Comment(s): jodee cataract, hemmoroidectomy, one cardiac stent Past Anesthesia/Blood Transfusion Reactions: No Reported Reaction Date of Last Stent Placement:: 2007 Past Psychological History: No Psychological Hx Reported Smoking Status: Former smoker Past Alcohol Use History: Rare Past Drug Use History: None Reported
[2024-07-30 20:52] LABS: Glucose,Whole Blood 169 mg/dL (70-110)
[2024-07-31 04:27] LABS: ALT 146 U/L (4-49); AST 132 U/L (17-59); African American GFR (CKD) 57 (>60 ml/min/1.73 sqM); Albumin 2.5 g/dL (3.5-5.0); Albumin/Globulin Ratio 0.8; Alkaline Phosphatase 454 U/L (38-126); Anion Gap 1 mmol/L; Blood Urea Nitrogen 26 mg/dL (9-20); Calcium 7.6 mg/dL (8.4-10.2); Carbon Dioxide 24 mmol/L (22-30); Chloride 108 mmol/L (98-107); Globulin 3.3 g/dL; Glucose 95 mg/dL (74-99); Non-African American GFR(CKD) 49 (>60 ml/min/1.73 sqM); Potassium 3.4 mmol/L (3.5-5.1); Sodium 133 mmol/L (137-145); Total Bilirubin 3.7 mg/dL (0.2-1.3); Total Protein 5.8 g/dL (6.3-8.2)
[2024-07-31 05:01] LABS: Basophils % (A) 0 %; Eosinophils # (A) 0.4 k/uL (0-0.7); Eosinophils % (A) 3 %; HCT 27.6 % (39.0-53.0); Lymphocytes # (A) 2.3 k/uL (1.0-4.8); Lymphocytes % (A) 15 %; MCH 29.7 pg (25.0-35.0); MCHC 32.8 g/dL (31.0-37.0); MCV 90.8 fL (80.0-100.0); Monocytes # (A) 1.2 k/uL (0-1.0); Monocytes % (A) 8 %; Neutrophils # (A) 11.6 k/uL (1.3-7.7); Neutrophils % (A) 73 %; Platelet Count 257 k/uL (150-450); RBC 3.04 m/uL (4.30-5.90); RDW 15.9 % (11.5-15.5); WBC 15.9 k/uL (3.8-10.6)
[2024-07-31 06:21] LABS: Glucose,Whole Blood 99 mg/dL (70-110)
[2024-07-31 11:10] LABS: INR 1.3 (<1.2); Prothrombin Time 13.9 sec (10.0-12.5)
--- NOTE | 2024-07-31 11:19 | P.PN ---
Subjective Progress Note Date: 07/31/24 This is a pleasant 89-year-old male patient who was admitted back on 07/23/2024 with abdominal pain as a transfer from [place]. He was found to have cholecystitis gangrenous and had undergone a laparoscopic cholecystectomy on 07/24/2024. Follow-up CT scan of the abdomen from yesterday 07/27/2024 revealed severe phlegmon in the gallbladder fossa with air bubbles and edema extending into the posterior segment of the right lower liver, free IntraOp peritoneal air and hemoperitoneum. Chronic changes at the lung bases. He did have a drop in hemoglobin to 5.7. He is status post 4 units of packed red blood cells this admission. Current hemoglobin 7.6. White count 10.2. INR 1.5. Sodium 141. Potassium 2.9. Bicarb 24. BUN 69. Creatinine 2.21. Glucose 131. He remains on ceftriaxone and Flagyl. D5W with 3 A of bicarb at 100 mL/h. Lovenox for DVT prophylaxis. We are consulted for possible admission to the intensive care unit. He is seen today on the regular medical floor. He is sitting up in a chair. Awake and alert in no acute distress. Maintaining good O2 saturations in the 90s on room air. He is afebrile. Hemodynamically stable. The patient is seen today July 29, 2024 in follow-up on the regular medical floor. He is currently sitting up in a chair. Awake and alert in no acute distress. He is maintaining O2 saturations in the 90s on room air. He is status post 4 units of packed red blood cells this admission. Current hemoglobin 7.4. White count 10.7. Platelets 203. Sodium 142. Potassium 3.3. Bicarb 28. BUN 41. Creatinine 1.60. Glucose 105. AST 114. ALT 156. He remains on ceftriaxone and Flagyl. Tolerating a clear liquid diet. The patient is seen today July 30, 2024 in follow-up on the regular medical floor. He is awake and alert in no acute distress. Sitting up in a chair at the bedside. Maintaining good O2 saturations in the mid 90s on room air. Has been afebrile. Somewhat hypertensive. He is status post 4 units of packed red blood cells this admission. Current hemoglobin 7.4. Glucose 144. Sodium 142. Potassium 3.5. Bicarb 25. BUN 25. Creatinine 1.3. He remains on ceftriaxone. The patient is seen today July 31, 2024 in follow-up on the regular medical floor. He is currently resting comfortably in bed. Awake and alert in no acute distress. Maintaining good O2 saturations in the 90s on room air. Denies any worsening shortness of breath, cough or congestion. White count 15.9. Hemoglobin 9.0. Platelets 257. INR 1.3. Sodium 133. Potassium 3.4. Bicarb 24. BUN 26. Creatinine 1.29. AST 132. ALT 146. Alk phos 454. He is continued on ceftriaxone and Flagyl. Objective - Vital Signs Vital signs: Vital Signs Temp 98.9 F 07/31/24 07:15 Pulse 87 07/31/24 07:15 Resp 16 07/31/24 07:15 BP 133/54 07/31/24 07:15 Pulse Ox 95 07/31/24 07:15 FiO2 Intake & Output 07/30/24 07/31/24 07/31/24 18:59 06:59 18:59 Output Total 500 Balance -500 Weight 81.647 kg Output: Urine 500 Other: Voiding Method Indwelling Catheter Toilet # Voids 2 - Exam GENERAL EXAM: Alert, 89-year-old gentleman, resting comfortably in bed, on room air, in no apparent distress. HEAD: Normocephalic. EYES: Normal reaction of pupils, equal size. NOSE: Clear with pink turbinates. THROAT: No erythema or exudates. NECK: No masses, no JVD. CHEST: No chest wall deformity. LUNGS: Equal air entry with crackles in the bilateral bases. CVS: S1 and S2 normal with no audible murmur, regular rhythm. ABDOMEN: Abdominal dressing dry and intact, no hepatosplenomegaly, normal bowel sounds, no guarding or rigidity. SPINE: No scoliosis or deformity SKIN: No rashes CENTRAL NERVOUS SYSTEM: No focal deficits, tone is normal in all 4 extremities. EXTREMITIES: There is no peripheral edema. No clubbing, no cyanosis. Peripheral pulses are intact. - Labs CBC & Chem 7: 07/31/24 02:57 07/31/24 02:57 Labs: Abnormal Lab Results - Last 24 Hours (Table) 07/30/24 07/30/24 07/30/24 Range/Units 11:23 14:22 16:37 WBC (3.8-10.6) k/uL RBC (4.30-5.90) m/uL Hgb (13.0-17.5) gm/dL Hct (39.0-53.0) % RDW (11.5-15.5) % Neutrophils # (1.3-7.7) k/uL Monocytes # (0-1.0) k/uL PT (10.0-12.5) sec INR (<1.2) Sodium (137-145) mmol/L Potassium (3.5-5.1) mmol/L Chloride 109 H (98-107) mmol/L BUN 24 H (9-20) mg/dL Creatinine (0.66-1.25) mg/dL Glucose 153 H (74-99) mg/dL POC Glucose (mg/dL) 144 H 116 H (70-110) mg/dL Calcium 7.7 L (8.4-10.2) mg/dL Total Bilirubin 7.6 H (0.2-1.3) mg/dL AST 203 H (17-59) U/L ALT 170 H (4-49) U/L Alkaline Phosphatase 492 H (38-126) U/L Total Protein 5.8 L (6.3-8.2) g/dL Albumin 2.6 L (3.5-5.0) g/dL 07/30/24 07/31/24 07/31/24 Range/Units 20:50 02:57 02:57 WBC 15.9 H (3.8-10.6) k/uL RBC 3.04 L (4.30-5.90) m/uL Hgb 9.0 L D (13.0-17.5) gm/dL Hct 27.6 L (39.0-53.0) % RDW 15.9 H (11.5-15.5) % Neutrophils # 11.6 H (1.3-7.7) k/uL Monocytes # 1.2 H (0-1.0) k/uL PT (10.0-12.5) sec INR (<1.2) Sodium 133 L (137-145) mmol/L Potassium 3.4 L (3.5-5.1) mmol/L Chloride 108 H (98-107) mmol/L BUN 26 H (9-20) mg/dL Creatinine 1.29 H (0.66-1.25) mg/dL Glucose (74-99) mg/dL POC Glucose (mg/dL) 169 H (70-110) mg/dL Calcium 7.6 L (8.4-10.2) mg/dL Total Bilirubin 3.7 H (0.2-1.3) mg/dL AST 132 H (17-59) U/L ALT 146 H (4-49) U/L Alkaline Phosphatase 454 H (38-126) U/L Total Protein 5.8 L (6.3-8.2) g/dL Albumin 2.5 L (3.5-5.0) g/dL 07/31/24 Range/Units 10:47 WBC (3.8-10.6) k/uL RBC (4.30-5.90) m/uL Hgb (13.0-17.5) gm/dL Hct (39.0-53.0) % RDW (11.5-15.5) % Neutrophils # (1.3-7.7) k/uL Monocytes # (0-1.0) k/uL PT 13.9 H (10.0-12.5) sec INR 1.3 H (<1.2) Sodium (137-145) mmol/L Potassium (3.5-5.1) mmol/L Chloride (98-107) mmol/L BUN (9-20) mg/dL Creatinine (0.66-1.25) mg/dL Glucose (74-99) mg/dL POC Glucose (mg/dL) (70-110) mg/dL Calcium (8.4-10.2) mg/dL Total Bilirubin (0.2-1.3) mg/dL AST (17-59) U/L ALT (4-49) U/L Alkaline Phosphatase (38-126) U/L Total Protein (6.3-8.2) g/dL Albumin (3.5-5.0) g/dL Assessment and Plan Assessment: Abdominal pain secondary to acute cholecystitis, gangrenous. Status post laparoscopic cholecystectomy on 07/24/2024 Acute blood loss anemia secondary to above requiring 4 units of packed red blood cells. Current hemoglobin 9.0 Acute kidney injury, secondary to acute tubular necrosis, improving Hypokalemia, receiving replacement therapy Transaminitis secondary to above Hypertension Hyperlipidemia Glaucoma BPH GERD Coronary disease with previous stent placement Plan: The patient was seen and evaluated Labs and medications reviewed Stable and on room air Continue incentive spirometer Antibiotics per surgical services Tolerating a low-fat diet Plan is for [facility] at discharge This patient was seen independently by the pulmonary nurse practitioner addressing pulmonary issues I have personally seen and examined the patient, performed the documentation and the assessment and plan as written. Number of minutes spent on the visit: 24 Dictation was produced using [employer] dictation software. Please excuse any grammatical, word or spelling errors.
[2024-07-31 11:27] LABS: Glucose,Whole Blood 87 mg/dL (70-110)
--- NOTE | 2024-07-31 11:43 | P.PN ---
Subjective Patient is seen in follow-up for acute kidney injury. Renal function fairly stable. Denies chest pain or shortness of breath. Scheduled for MRCP tomorrow. Hemodynamically stable. Montgomery catheter removed July 30, 2024. Vital signs are stable. General: No acute distress. HEENT: Head exam is unremarkable. LUNGS: No audible rhonchi or wheezes. HEART: Rate and Rhythm are regular. ABDOMEN: Nontender. EXTREMITITES: Trace edema. Objective - Vital Signs Vital signs: Vital Signs Temp 98.9 F 07/31/24 07:15 Pulse 87 07/31/24 07:15 Resp 16 07/31/24 07:15 BP 133/54 07/31/24 07:15 Pulse Ox 95 07/31/24 07:15 FiO2 Intake & Output 07/30/24 07/31/24 07/31/24 18:59 06:59 18:59 Output Total 500 Balance -500 Weight 81.647 kg Output: Urine 500 Other: Voiding Method Indwelling Catheter Toilet # Voids 2 - Labs CBC & Chem 7: 07/31/24 02:57 07/31/24 02:57 Labs: Abnormal Lab Results - Last 24 Hours (Table) 07/30/24 07/30/24 07/30/24 Range/Units 14:22 16:37 20:50 WBC (3.8-10.6) k/uL RBC (4.30-5.90) m/uL Hgb (13.0-17.5) gm/dL Hct (39.0-53.0) % RDW (11.5-15.5) % Neutrophils # (1.3-7.7) k/uL Monocytes # (0-1.0) k/uL PT (10.0-12.5) sec INR (<1.2) Sodium (137-145) mmol/L Potassium (3.5-5.1) mmol/L Chloride 109 H (98-107) mmol/L BUN 24 H (9-20) mg/dL Creatinine (0.66-1.25) mg/dL Glucose 153 H (74-99) mg/dL POC Glucose (mg/dL) 116 H 169 H (70-110) mg/dL Calcium 7.7 L (8.4-10.2) mg/dL Total Bilirubin 7.6 H (0.2-1.3) mg/dL AST 203 H (17-59) U/L ALT 170 H (4-49) U/L Alkaline Phosphatase 492 H (38-126) U/L Total Protein 5.8 L (6.3-8.2) g/dL Albumin 2.6 L (3.5-5.0) g/dL 07/31/24 07/31/24 07/31/24 Range/Units 02:57 02:57 10:47 WBC 15.9 H (3.8-10.6) k/uL RBC 3.04 L (4.30-5.90) m/uL Hgb 9.0 L D (13.0-17.5) gm/dL Hct 27.6 L (39.0-53.0) % RDW 15.9 H (11.5-15.5) % Neutrophils # 11.6 H (1.3-7.7) k/uL Monocytes # 1.2 H (0-1.0) k/uL PT 13.9 H (10.0-12.5) sec INR 1.3 H (<1.2) Sodium 133 L (137-145) mmol/L Potassium 3.4 L (3.5-5.1) mmol/L Chloride 108 H (98-107) mmol/L BUN 26 H (9-20) mg/dL Creatinine 1.29 H (0.66-1.25) mg/dL Glucose (74-99) mg/dL POC Glucose (mg/dL) (70-110) mg/dL Calcium 7.6 L (8.4-10.2) mg/dL Total Bilirubin 3.7 H (0.2-1.3) mg/dL AST 132 H (17-59) U/L ALT 146 H (4-49) U/L Alkaline Phosphatase 454 H (38-126) U/L Total Protein 5.8 L (6.3-8.2) g/dL Albumin 2.5 L (3.5-5.0) g/dL Assessment and Plan Plan: Assessment: 1. Acute kidney injury secondary to ATN. Creatinine 0.3 in April 2021. Creatinine peaked at 3.64 this admission and is fairly stable at 1.29 today. No hydronephrosis noted on CT. UA shows granular casts which is suggestive of ATN. Serologies negative so far. 2. Acute blood loss anemia status post blood transfusions. Hemoglobin 7.4 yesterday. 3. Metabolic acidosis secondary to acute kidney injury status post bicarb drip. Improved. 4. History of BPH and prostatomegaly. 5. Acute cholecystitis with cholelithiasis status post laparoscopic cholecystectomy July 24, 2024. 6. Hypokalemia from poor intake. 7. Hypomagnesemia from poor intake. On oral magnesium oxide. Improved. Plan: Maintain off IV fluids. Follow-up serologies. Negative so far. Avoid nephrotoxins. Potassium replaced. MRCP tomorrow.
[2024-07-31] MEDS: metroNIDAZOLE-NS PMX 500 MG in SALINE 1 100ML.BAG IVPB SCH (12:07)
--- NOTE | 2024-07-31 13:50 | P.PN ---
Subjective Progress Note Date: 07/31/24 CHIEF COMPLAINT: Gangrenous cholecystitis HISTORY OF PRESENT ILLNESS: Patient is postop day #7 status post laparoscopic cholecystectomy. Patient was jaundiced yesterday. A CMP was collected and it was found to have a total bili of 7.6 and LFTs were elevated. Repeat labs from today show that the total bilirubin has trended down to 3.7 and LFTs are trending downwards. He denies any abdominal pain. Denies any nausea or vomiting. White count is elevated from 10-15. And hemoglobin did go up from 7. 4-9. Patient being seen by GI service regarding the elevated LFTs and bilirubin. Patient has received insurance authorization for ECF. Patient seen and examined with Dr. Wells PHYSICAL EXAM: VITAL SIGNS: Reviewed. GENERAL: no acute distress. Jaundice HEENT: Scleral icterus present ABDOMEN: Soft. Nondistended. bruising along the right lower side of the abdomen is less. NEUROLOGIC: Alert and oriented. Cranial nerves II through XII grossly intact. ASSESSMENT: 1. Gangrenous cholecystitis 2. Acute blood loss anemia due to postoperative bleeding 3. Elevated LFTs and bilirubin PLAN: -Patient seen by GI service they have ordered an MRCP -Continue antibiotics -Patient will need rehab at discharge -Lovenox remains on hold due to the acute blood loss anemia -Repeat CBC and CMP in a.m. Physician Battery Vent Plug Inserter note has been reviewed by physician. Signing provider agrees with the documented findings, assessment, and plan of care. Objective - Vital Signs Vital signs: Vital Signs Temp 98.9 F 07/31/24 07:15 Pulse 87 07/31/24 07:15 Resp 16 07/31/24 07:15 BP 133/54 07/31/24 07:15 Pulse Ox 95 07/31/24 07:15 FiO2 Intake & Output 07/30/24 07/31/24 07/31/24 18:59 06:59 18:59 Output Total 500 Balance -500 Weight 81.647 kg Output: Urine 500 Other: Voiding Method Indwelling Catheter Toilet # Voids 2 - Labs CBC & Chem 7: 07/31/24 02:57 07/31/24 02:57 Labs: Abnormal Lab Results - Last 24 Hours (Table) 07/30/24 07/30/24 07/30/24 Range/Units 14:22 16:37 20:50 WBC (3.8-10.6) k/uL RBC (4.30-5.90) m/uL Hgb (13.0-17.5) gm/dL Hct (39.0-53.0) % RDW (11.5-15.5) % Neutrophils # (1.3-7.7) k/uL Monocytes # (0-1.0) k/uL PT (10.0-12.5) sec INR (<1.2) Sodium (137-145) mmol/L Potassium (3.5-5.1) mmol/L Chloride 109 H (98-107) mmol/L BUN 24 H (9-20) mg/dL Creatinine (0.66-1.25) mg/dL Glucose 153 H (74-99) mg/dL POC Glucose (mg/dL) 116 H 169 H (70-110) mg/dL Calcium 7.7 L (8.4-10.2) mg/dL Total Bilirubin 7.6 H (0.2-1.3) mg/dL AST 203 H (17-59) U/L ALT 170 H (4-49) U/L Alkaline Phosphatase 492 H (38-126) U/L Total Protein 5.8 L (6.3-8.2) g/dL Albumin 2.6 L (3.5-5.0) g/dL 07/31/24 07/31/24 07/31/24 Range/Units 02:57 02:57 10:47 WBC 15.9 H (3.8-10.6) k/uL RBC 3.04 L (4.30-5.90) m/uL Hgb 9.0 L D (13.0-17.5) gm/dL Hct 27.6 L (39.0-53.0) % RDW 15.9 H (11.5-15.5) % Neutrophils # 11.6 H (1.3-7.7) k/uL Monocytes # 1.2 H (0-1.0) k/uL PT 13.9 H (10.0-12.5) sec INR 1.3 H (<1.2) Sodium 133 L (137-145) mmol/L Potassium 3.4 L (3.5-5.1) mmol/L Chloride 108 H (98-107) mmol/L BUN 26 H (9-20) mg/dL Creatinine 1.29 H (0.66-1.25) mg/dL Glucose (74-99) mg/dL POC Glucose (mg/dL) (70-110) mg/dL Calcium 7.6 L (8.4-10.2) mg/dL Total Bilirubin 3.7 H (0.2-1.3) mg/dL AST 132 H (17-59) U/L ALT 146 H (4-49) U/L Alkaline Phosphatase 454 H (38-126) U/L Total Protein 5.8 L (6.3-8.2) g/dL Albumin 2.5 L (3.5-5.0) g/dL
[2024-07-31] MEDS: POTASSIUM CHLORIDE ER 10 MEQ TAB.ER.PRT PO STA (13:57)
--- NOTE | 2024-07-31 14:38 | MR ---
EXAMINATION TYPE: MR MRCP DATE OF EXAM: 07/31/2024 1:49 PM CLINICAL INDICATION: Male, 89 years old with history of Jaundice, elevated LFTS; PHH, Jaundice, eleva nilesh LFTs. COMPARISON: TECHNIQUE: Multi planar, T2-weighted imaging with and without fat saturation and chemical shift imag ing was performed of the abdomen. Then, heavily T2 weighted imaging (half-Fourier acquisition single- shot turbo spin-echo) was utilized in order to study the biliary system. Maximum intensity projectio n images were reconstructed from the original data of the biliary tree. 3D images were created on [employer] work station. No Gadolinium given. FINDINGS: Lower Thorax: Height T2 signal streaky edema in the lung bases. MRCP: * The intrahepatic ducts have a normal appearance. * The extrahepatic ducts have a normal appearance. * The common hepatic duct measures 6 mm in size. * The common bile duct at the level of the pancreatic head measures 5 mm in size. * The pancreatic duct is normal. The gallbladder fossa redemonstrates multiple phlegmonous change as seen on prior CT. No organizing f luid collections in the visualized. Abdomen: Liver: No evidence for cirrhosis. Signal dropout on chemical shift out of phase imaging. Scattered si mple and mildly complex high T2 signal probable cysts. There are some areas of abnormal signal within thee right hepatic lobe 301 image 24 and along the gallbladder fossa. Pancreas: No ductal dilation. No evidence for solid mass. Spleen: Normal for size. Adrenal glands: Unremarkable. Kidneys: No evidence for obstructive uropathy. No suspicious renal masses. Stomach and Bowel: Small hiatal hernia. No evidence for bowel wall thickening or evidence for obstruc tion. Retroperitoneum/Peritoneum: No evidence of pneumoperitoneum or free fluid. Vasculature: No aortic aneurysm. Musculoskeletal: The osseous structures appear intact. Lymph Nodes: No gross evidence for lymphadenopathy. Abdominal wall: Unremarkable. IMPRESSION: Motion limited exam as well as noncontrast exam. 1. The gallbladder fossa demonstrates postsurgical changes with severe inflammation. No organizing f luid collection within the visualized at this time. Suspected spreading inflammation/infection involv ing the adjacent liver parenchyma. 2. Hepatic steatosis. 3. Simple and mildly complex scattered hepatic cysts. 4. Streaky edema in the lung bases correlate for volume overload. 5. No evidence to suggest choledocholithiasis or biliary ductal dilatation. [facility], , 07/31/2024 2:36 PM
--- NOTE | 2024-07-31 16:13 | P.CONS ---
History of Present Illness - Reason for Consult Consult date: 07/31/24 Postop cholestatic picture Requesting physician: Jd Adamson - Chief Complaint Abdominal pain nausea and vomiting - History of Present Illness This a pleasant 89-year-old male 4 who had presented to the emergency department back on 07/23/2024 with complaints of abdominal pain associated with nausea and vomiting. He had a CT of the abdomen pelvis with findings of prominent gallbladder smith and gallbladder distention as well as cholelithiasis. He was seen by general surgery and underwent cholecystectomy for cholecystitis with Dr. Wells. Following his surgery apparently patient had a drop in his hemoglobin and was thought to have a postop bleed. Yesterday patient was noted to be jaundiced he had repeat labs done showing bilirubin 7.6 AST 203 ALT 170 alkaline phosphatase 492. Gastroenterology was consulted for possible choledocholithiasis. Denies any abdominal pain other than surgical pain when moving, no nausea or vomiting. He had repeat labs today with a bilirubin down to 3.7 AST 132 ALT 146 and alkaline phosphatase 454. Patient denies any history of liver disease, no history of alcoholism or hepatitis. Review of Systems REVIEW OF SYSTEMS: CARDIOPULMONARY: No chest pain or shortness of breath. Gastrointestinal: Reports surgical abdominal pain with moving. No nausea or vomiting. No hematemesis, coffee-ground emesis. No rectal bleeding, or melena. GENITOURINARY: No dysuria or hematuria. MUSCULOSKELETAL: Reports normal range of motion., Joint pain. SKIN: No rashes. No jaundice. ENDOCRINE: No chills, fevers. No excessive weight gain or loss. No polydipsia or polyuria. PSYCHIATRIC: Unremarkable. NEUROLOGY: No change in mental status. Denies dizziness, headache. ENT: Vision unremarkable. CONSTITUTIONAL: No recent weight loss. No fever, chills, night sweats. Past Medical History Past Medical History: Coronary Artery Disease (CAD), Eye Disorder, Hyperlipidemia, Hypertension, Prostate Disorder, Sleep Apnea/CPAP/BIPAP Additional Past Medical History / Comment(s): states not currently taking HTN meds, glaucoma, blind left eye History of Any Multi-Drug Resistant Organisms: None Reported Past Surgical History: Heart Catheterization With Stent Additional Past Surgical History / Comment(s): jodee cataract, hemmoroidectomy, on e cardiac stent Past Anesthesia/Blood Transfusion Reactions: No Reported Reaction Date of Last Stent Placement:: 2007 Past Psychological History: No Psychological Hx Reported Smoking Status: Former smoker Past Alcohol Use History: Rare Past Drug Use History: None Reported Medications and Allergies Home Medications Medication Instructions Recorded Confirmed Type Atorvastatin [Lipitor] 40 mg PO DAILY 05/03/21 07/23/24 History Latanoprost Ophth [Xalatan 0.005%] 1 drop BOTH EYES HS 05/03/21 07/23/24 History Losartan Potassium 50 mg PO DAILY 05/03/21 07/23/24 History traZODone HCL [Desyrel] 100 mg PO HS 05/03/21 07/23/24 History Brimonidine Tartrate [Alphagan P 1 drop BOTH EYES BID 07/23/24 07/23/24 History 0.2% Ophth Soln] Dorzolamide-Timol 2.23%/0.68% 1 drop BOTH EYES BID 07/23/24 07/23/24 History [Cosopt] Ferrous Sulfate [Feosol] 325 mg PO DAILY 07/23/24 07/23/24 History Furosemide [Lasix] 20 mg PO DAILY 07/23/24 07/23/24 History Omeprazole [PriLOSEC] 20 mg PO DAILY 07/23/24 07/23/24 History Ondansetron [Zofran] 4 mg PO Q8HR PRN 07/23/24 07/23/24 History Tamsulosin [Flomax] 0.4 mg PO DAILY 07/23/24 07/23/24 History polyethylene glycoL 3350 [Miralax] 17 gm PO DAILY 07/23/24 07/23/24 History tadalafiL [Cialis] 20 mg PO DAILY PRN 07/23/24 07/23/24 History Allergies Allergy/AdvReac Type Severity Reaction Status Date / Time Penicillins Allergy Rash/Hives Verified 07/23/24 06:17 Physical Exam Vitals: Vital Signs Temp Pulse Resp BP BP Pulse Ox 07/31/24 07:15 98.9 F 87 16 133/54 95 07/31/24 01:30 98.7 F 79 17 121/58 95 07/30/24 19:19 98 F 96 17 175/62 96 07/30/24 14:00 97.8 F 90 18 142/75 97 Intake and Output 07/30/24 07/31/24 07/31/24 22:59 06:59 14:59 Other: Voiding Method Toilet # Voids 2 General appearance: The patient is alert, oriented, appears in no acute distres s. HET: Head is normocephalic and atraumatic. Conjunctiva pink. Sclera anicteric. Neck: Supple without lymphadenopathy. Trachea midline. Heart: Regular. Lungs: Equal expansion, normal respiratory effort. Abdomen: Soft, nontender, nondistended. Surgical incisions well-approximated. Multiple areas of bruising especially along the right side of the abdomen and flank. Skin: No rashes. Jaundice. Extremities: Normal skin color and turgor. No pedal edema. Neurological: No focal deficits. Alert and oriented x3. Results CBC & Chem 7: 07/31/24 02:57 07/31/24 02:57 Labs: Abnormal Lab Results - Last 24 Hours (Table) 07/30/24 07/30/24 07/30/24 Range/Units 11:23 14:22 16:37 WBC (3.8-10.6) k/uL RBC (4.30-5.90) m/uL Hgb (13.0-17.5) gm/dL Hct (39.0-53.0) % RDW (11.5-15.5) % Neutrophils # (1.3-7.7) k/uL Monocytes # (0-1.0) k/uL Sodium (137-145) mmol/L Potassium (3.5-5.1) mmol/L Chloride 109 H (98-107) mmol/L BUN 24 H (9-20) mg/dL Creatinine (0.66-1.25) mg/dL Glucose 153 H (74-99) mg/dL POC Glucose (mg/dL) 144 H 116 H (70-110) mg/dL Calcium 7.7 L (8.4-10.2) mg/dL Total Bilirubin 7.6 H (0.2-1.3) mg/dL AST 203 H (17-59) U/L ALT 170 H (4-49) U/L Alkaline Phosphatase 492 H (38-126) U/L Total Protein 5.8 L (6.3-8.2) g/dL Albumin 2.6 L (3.5-5.0) g/dL 10/07/31/24 07/31/24 Range/Units 20:50 02:57 02:57 WBC 15.9 H (3.8-10.6) k/uL RBC 3.04 L (4.30-5.90) m/uL Hgb 9.0 L D (13.0-17.5) gm/dL Hct 27.6 L (39.0-53.0) % RDW 15.9 H (11.5-15.5) % Neutrophils # 11.6 H (1.3-7.7) k/uL Monocytes # 1.2 H (0-1.0) k/uL Sodium 133 L (137-145) mmol/L Potassium 3.4 L (3.5-5.1) mmol/L Chloride 108 H (98-107) mmol/L BUN 26 H (9-20) mg/dL Creatinine 1.29 H (0.66-1.25) mg/dL Glucose (74-99) mg/dL POC Glucose (mg/dL) 169 H (70-110) mg/dL Calcium 7.6 L (8.4-10.2) mg/dL Total Bilirubin 3.7 H (0.2-1.3) mg/dL AST 132 H (17-59) U/L ALT 146 H (4-49) U/L Alkaline Phosphatase 454 H (38-126) U/L Total Protein 5.8 L (6.3-8.2) g/dL Albumin 2.5 L (3.5-5.0) g/dL Comments: MRCP reports gallbladder fossa demonstrates postsurgical changes with severe inflammation. No organizing fluid collection within the visualized at this time. Suspected spreading inflammation/infection involving the adjacent liver parenchyma. Hepatic steatosis. Simple and mildly complex scattered hepatic cysts. Streaky edema in the lung bases correlate for volume overload. No evidence to suggest choledocholithiasis or biliary ductal dilation. Assessment and Plan (1) Jaundice Narrative/Plan: 89-year-old male presenting with abdominal pain with findings of cholelithiasis with cholecystitis who underwent cholecystectomy. He was noted to have significant elevation in his bilirubin yesterday with some elevation as well in his AST and ALT as well as alkaline phosphatase. There was concern for a cholestatic pattern and that patient may have choledocholithiasis. MRCP completed and reviewed with no evidence of choledocholithiasis. Patient likely passed a biliary stone. No plans for ERCP. Continue to trend LFTs. Current Visit: Yes Status: Acute Code(s): R17 - UNSPECIFIED JAUNDICE SNOMED Code(s): 87152781 (2) Elevated LFTs Current Visit: Yes Status: Acute Code(s): R79.89 - OTHER SPECIFIED ABNORMAL FINDINGS OF BLOOD CHEMISTRY SNOMED Code(s): 683948460 (3) Acute renal failure Current Visit: Yes Status: Acute Code(s): N17.9 - ACUTE KIDNEY FAILURE, UNSPECIFIED SNOMED Code(s): 65928531 (4) Cholelithiasis with cholecystitis Current Visit: Yes Status: Acute Code(s): K80.10 - CALCULUS OF GALLBLADDER W CHRONIC CHOLECYST W/O OBSTRUCTION SNOMED Code(s): 321198278 Plan: 1. Continue symptomatic and supportive care 2. Patient may have a low fat low fiber diet 3. MRCP had been ordered and reviewed 4. There is no indication for ERCP 5. Daily CMP 6. Continue with recommendations from general surgery 7. Hepatitis panel ordered Thank you for this consultation, we will continue to follow. Dr. Manfred Perez I agree with the dictator's note, documented as a scribe by Alexandrea Connor.
[2024-07-31 16:38] LABS: Glucose,Whole Blood 102 mg/dL (70-110)
[2024-07-31 20:39] LABS: Glucose,Whole Blood 97 mg/dL (70-110)
[2024-07-31 20:59] LABS: Hepatitis A Antibody IgM Nonreactive (Nonreactive); Hepatitis B Core IgM Nonreactive (Nonreactive); Hepatitis B Surface Antigen Nonreactive (Nonreactive); Hepatitis C IgG Antibody Nonreactive (Nonreactive)
[2024-08-01 05:37] LABS: Glucose,Whole Blood 83 mg/dL (70-110)
--- NOTE | 2024-08-01 08:13 | P.PN ---
Subjective Progress Note Date: 07/31/24 This is an 89-year-old male came in with concern for abdominal pain was sent over from [facility]. There was concern for free air and an abdominal x- ray he had there. Patient also was found to have elevated BUN and creatinine. He had an abdominal pelvis CT completed here which reveals prominence of the gallbladder as well as gallbladder mildly distended with gallstones there is prostate a megaly nonobstructing right renal calculus no evidence for obstructive uropathy. There is possible early honeycombing in the right lung base and severe coronary artery atherosclerosis. Patient was admitted to the hospital under medicine with a consult placed to general surgery and nephrology. He was taken for a laparoscopic cholecystectomy secondary to gangrenous cholecystitis on July 24. Postoperatively patient was having increased abdominal pain had a drop in hemoglobin and blood pressure. A repeat abdominal pelvis CT reveals severe phlegmon and hemoperitoneum.. Patient was also having elevated LFTs and bilirubin GI services was consulted. Patient is pending MRCP. Today he does report that his abdominal pain has improved LFTs are slightly improved as well he may have passed a gallstone. His BUN is 26 creatinine is 1.29 white count is 15.9 hemoglobin 9.0 sodium 133 potassium 3.4. He has an indwelling Montgomery catheter in place. Review of Systems Constitutional: Denied any fatigue denied any fever. Cardio vascular: denied any chest pain, palpitations Gastrointestinal: denied any nausea, vomiting, diarrhea Pulmonary: Denied any shortness of breath cough Neurologic denied any new focal deficits All inpatient medications were reviewed and appropriate changes in these medicat ions as dictated in the interval history and assessment and plan. PHYSICAL EXAMINATION: GENERAL: The patient is alert and oriented x3, not in any acute distress. Well developed, well nourished. HEENT: Pupils are round and equally reacting to light. EOMI. No scleral icterus. No conjunctival pallor. Normocephalic, atraumatic. No pharyngeal erythema. No thyromegaly. CARDIOVASCULAR: S1 and S2 present. No murmurs, rubs, or gallops. PULMONARY: Chest is clear to auscultation, no wheezing or crackles. ABDOMEN: Soft, nontender, nondistended, normoactive bowel sounds. No palpable organomegaly. MUSCULOSKELETAL: No joint swelling or deformity. EXTREMITIES: No cyanosis, clubbing, or pedal edema. NEUROLOGICAL: Gross neurological examination did not reveal any focal deficits. SKIN: No rashes. Assessment and plan Assessment plan: -Acute cholecystitis with gallstones on presentation. Laparoscopic cholecystectomy for gangrenous cholecystitis IV ceftriaxone. IV Flagyl. Being followed by Dr Wells. Regular diet -Acute increase in LFTs with a cholestatic pattern including bilirubin and alk phos.: Acute worsening Discussed with Dr Wells. Consult Dr. Manfred Perez for possible ERCP. Questionable stone -Hyperlipidemia Lipitor 40 mg a day-currently held -Glaucoma continue eyedrops -Acute postoperative blood loss anemia, at surgical site perihepatic Received 4 units of blood Hemoglobin stable at 9.0 today -Essential hypertension, blood pressure running high losartan to 50 mg nightly. Hydralazine added -Metabolic acidosis from kidney injury: Improved IV bicarbonate drip discontinued at this time -GERD Prilosec 20 mg a day -Hypokalemia Replace potassium -BPH Flomax 0.4 mg a day -CAD with stent about 20 years ago. Had a stress test a year ago that was neg ative. Lipitor-hold because of increased LFTs -Kidney injury, acute versus chronic: Improving Patient's last documented creatinine was 0.7 in April 2021. On admission 3. IV fluids. Repeat labs Nephrology following -Post operative transaminitis, with normal bilirubin: Slow response DC [place]. DC Lipitor. -Full code Patient will be going for MRCP today. Continue indwelling Montgomery catheter jorge tor intake and output. Repeat CBC and CMP in the morning. Nephrology following closely. The impression and plan of care has been dictated by Rosa Isela Whittington, Nurse Practitioner as directed. Dr. Flakito MD I have performed a history and physical examination and medical decision making of this patient, discussed the same with the dictator, and agree with the dictators assessment and plan as written, documented as a scribe. Based on total visit time, I have performed more than 50% of this visit. Objective - Vital Signs Vital signs: Vital Signs Temp 98.9 F 07/31/24 07:15 Pulse 87 07/31/24 07:15 Resp 16 07/31/24 07:15 BP 133/54 07/31/24 07:15 Pulse Ox 95 07/31/24 07:15 FiO2 Intake & Output 07/30/24 07/31/24 07/31/24 18:59 06:59 18:59 Output Total 500 Balance -500 Weight 81.647 kg Output: Urine 500 Other: Voiding Method Indwelling Catheter Toilet # Voids 2 - Labs CBC & Chem 7: 07/31/24 02:57 07/31/24 02:57 Labs: Abnormal Lab Results - Last 24 Hours (Table) 07/30/24 07/30/24 07/30/24 Range/Units 11:23 14:22 16:37 WBC (3.8-10.6) k/uL RBC (4.30-5.90) m/uL Hgb (13.0-17.5) gm/dL Hct (39.0-53.0) % RDW (11.5-15.5) % Neutrophils # (1.3-7.7) k/uL Monocytes # (0-1.0) k/uL Sodium (137-145) mmol/L Potassium (3.5-5.1) mmol/L Chloride 109 H (98-107) mmol/L BUN 24 H (9-20) mg/dL Creatinine (0.66-1.25) mg/dL Glucose 153 H (74-99) mg/dL POC Glucose (mg/dL) 144 H 116 H (70-110) mg/dL Calcium 7.7 L (8.4-10.2) mg/dL Total Bilirubin 7.6 H (0.2-1.3) mg/dL AST 203 H (17-59) U/L ALT 170 H (4-49) U/L Alkaline Phosphatase 492 H (38-126) U/L Total Protein 5.8 L (6.3-8.2) g/dL Albumin 2.6 L (3.5-5.0) g/dL 07/30/24 07/31/24 07/31/24 Range/Units 20:50 02:57 02:57 WBC 15.9 H (3.8-10.6) k/uL RBC 3.04 L (4.30-5.90) m/uL Hgb 9.0 L D (13.0-17.5) gm/dL Hct 27.6 L (39.0-53.0) % RDW 15.9 H (11.5-15.5) % Neutrophils # 11.6 H (1.3-7.7) k/uL Monocytes # 1.2 H (0-1.0) k/uL Sodium 133 L (137-145) mmol/L Potassium 3.4 L (3.5-5.1) mmol/L Chloride 108 H (98-107) mmol/L BUN 26 H (9-20) mg/dL Creatinine 1.29 H (0.66-1.25) mg/dL Glucose (74-99) mg/dL POC Glucose (mg/dL) 169 H (70-110) mg/dL Calcium 7.6 L (8.4-10.2) mg/dL Total Bilirubin 3.7 H (0.2-1.3) mg/dL AST 132 H (17-59) U/L ALT 146 H (4-49) U/L Alkaline Phosphatase 454 H (38-126) U/L Total Protein 5.8 L (6.3-8.2) g/dL Albumin 2.5 L (3.5-5.0) g/dL Assessment and Plan Time with Patient: Less than 30
[2024-08-01 09:19] LABS: ALT 104 U/L (10-49); AST 77 U/L (14-35); Albumin 2.4 g/dL (3.8-4.9); Albumin/Globulin Ratio 0.89 Ratio (1.60-3.17); Alkaline Phosphatase 299 U/L (41-126); Calcium 7.6 mg/dL (8.7-10.3); Carbon Dioxide 22.1 mmol/L (21.6-31.8); Chloride 110 mmol/L (96-109); Globulin 2.7 g/dL (1.6-3.3); Glucose 74 mg/dL (70-110); Sodium 138 mmol/L (135-145); Total Bilirubin 1.6 mg/dL (0.3-1.2); Total Protein 5.1 g/dL (6.2-8.2)
[2024-08-01 09:20] LABS: HCT 22.9 % (39.6-50.0); HGB 7.4 g/dL (13.0-17.0); MCH 29.2 pg (27.0-32.0); MCHC 32.3 g/dL (32.0-37.0); MCV 90.5 FL (80.0-97.0); Mean Platelet Volume 11.4 FL (9.5-12.2); NRBC Per 100 WBC 0 X 10*3/uL (0.00-0.01); Platelet Count 223 X 10*3/uL (140-440); RBC 2.53 X 10*6/uL (4.40-5.60); RDW 15.6 % (11.5-14.5)
--- NOTE | 2024-08-01 10:59 | P.PN ---
Subjective Patient is seen in follow-up for acute kidney injury. Renal function fairly stable. Denies chest pain or shortness of breath. Hemodynamically stable. Montgomery catheter removed July 30, 2024. Has been voiding on his own. Oral intake fair. Vital signs are stable. General: No acute distress. HEENT: Head exam is unremarkable. LUNGS: No audible rhonchi or wheezes. HEART: Rate and Rhythm are regular. ABDOMEN: Nontender. EXTREMITITES: No edema. Objective - Vital Signs Vital signs: Vital Signs Temp 98.4 F 08/01/24 06:52 Pulse 84 08/01/24 06:52 Resp 18 08/01/24 06:52 BP 165/63 08/01/24 06:52 Pulse Ox 93 L 08/01/24 06:52 FiO2 Intake & Output 07/31/24 08/01/24 08/01/24 18:59 06:59 18:59 Other: Voiding Method Urinal Urinal Toilet # Voids 2 # Bowel Movements 2 - Labs CBC & Chem 7: 08/01/24 03:26 08/01/24 03:26 Labs: Abnormal Lab Results - Last 24 Hours (Table) 07/31/24 08/01/24 08/01/24 Range/Units 10:47 03:26 03:26 WBC 12.90 H (4.50-10.00) X 10*3/uL RBC 2.53 L (4.40-5.60) X 10*6/uL Hgb 7.4 L (13.0-17.0) g/dL Hct 22.9 L (39.6-50.0) % RDW 15.6 H (11.5-14.5) % PT 13.9 H (10.0-12.5) sec INR 1.3 H (<1.2) Chloride 110 H (96-109) mmol/L Est GFR (CKD-EPI) 58 L (>=60) Calcium 7.6 L (8.7-10.3) mg/dL Total Bilirubin 1.6 H (0.3-1.2) mg/dL AST 77 H (14-35) U/L ALT 104 H (10-49) U/L Alkaline Phosphatase 299 H (41-126) U/L Total Protein 5.1 L (6.2-8.2) g/dL Albumin 2.4 L (3.8-4.9) g/dL Albumin/Globulin Ratio 0.89 L (1.60-3.17) Ratio Assessment and Plan Plan: Assessment: 1. Acute kidney injury secondary to ATN. Creatinine 0.73 in April 2021. Creatinine peaked at 3.64 this admission and is fairly stable at 1.2 today. No hydronephrosis noted on CT. UA shows granular casts which is suggestive of ATN. Serologies negative so far. 2. Acute blood loss anemia status post blood transfusions. 3. Metabolic acidosis secondary to acute kidney injury status post bicarb drip. Improved. 4. History of BPH and prostatomegaly. 5. Acute cholecystitis with cholelithiasis status post laparoscopic cholecystectomy July 24, 2024. MRCP showed hepatic steatosis, severe inflammation in the gallbladder fossa. 6. Hypokalemia from poor intake. 7. Hypomagnesemia from poor intake. On oral magnesium oxide. Improved. Plan: Maintain off of IV fluids. Avoid nephrotoxins. Encouraged oral intake.
[2024-08-01 11:16] LABS: Glucose,Whole Blood 101 mg/dL (70-110)
--- NOTE | 2024-08-01 12:08 | P.PN ---
Subjective Progress Note Date: 08/01/24 This is a pleasant 89-year-old male patient who was admitted back on 07/23/2024 with abdominal pain as a transfer from [place]. He was found to have cholecystitis gangrenous and had undergone a laparoscopic cholecystectomy on 07/24/2024. Follow-up CT scan of the abdomen from yesterday 07/27/2024 revealed severe phlegmon in the gallbladder fossa with air bubbles and edema extending into the posterior segment of the right lower liver, free IntraOp peritoneal air and hemoperitoneum. Chronic changes at the lung bases. He did have a drop in hemoglobin to 5.7. He is status post 4 units of packed red blood cells this admission. Current hemoglobin 7.6. White count 10.2. INR 1.5. Sodium 141. Potassium 2.9. Bicarb 24. BUN 69. Creatinine 2.21. Glucose 131. He remains on ceftriaxone and Flagyl. D5W with 3 A of bicarb at 100 mL/h. Lovenox for DVT prophylaxis. We are consulted for possible admission to the intensive care unit. He is seen today on the regular medical floor. He is sitting up in a chair. Awake and alert in no acute distress. Maintaining good O2 saturations in the 90s on room air. He is afebrile. Hemodynamically stable. The patient is seen today July 29, 2024 in follow-up on the regular medical floor. He is currently sitting up in a chair. Awake and alert in no acute distress. He is maintaining O2 saturations in the 90s on room air. He is status post 4 units of packed red blood cells this admission. Current hemoglobin 7.4. White count 10.7. Platelets 203. Sodium 142. Potassium 3.3. Bicarb 28. BUN 41. Creatinine 1.60. Glucose 105. AST 114. ALT 156. He remains on ceftriaxone and Flagyl. Tolerating a clear liquid diet. The patient is seen today July 30, 2024 in follow-up on the regular medical floor. He is awake and alert in no acute distress. Sitting up in a chair at the bedside. Maintaining good O2 saturations in the mid 90s on room air. Has been afebrile. Somewhat hypertensive. He is status post 4 units of packed red blood cells this admission. Current hemoglobin 7.4. Glucose 144. Sodium 142. Potassium 3.5. Bicarb 25. BUN 25. Creatinine 1.3. He remains on ceftriaxone. The patient is seen today July 31, 2024 in follow-up on the regular medical floor. He is currently resting comfortably in bed. Awake and alert in no acute distress. Maintaining good O2 saturations in the 90s on room air. Denies any worsening shortness of breath, cough or congestion. White count 15.9. Hemoglobin 9.0. Platelets 257. INR 1.3. Sodium 133. Potassium 3.4. Bicarb 24. BUN 26. Creatinine 1.29. AST 132. ALT 146. Alk phos 454. He is continued on ceftriaxone and Flagyl. The patient is seen today August 01, 2024 in follow-up on the regular medical floor. He is currently sitting up in bed. Awake and alert in no acute distress. Maintaining good O2 saturations in the 90s on room air. He remains on ceftriaxone and Flagyl. MR MRCP results revealed no bladder fossa demonstrates postsurgical changes with severe inflammation. No organizing fluid collection within the visualized area. Suspected spreading inflammation/infection involving the adjacent liver parenchyma. Hepatic steatosis. No evidence to suggest choledocholithiasis or biliary ductal dilatation. White count 12.9. Hemoglobin 7.4. Platelets 223. Sodium 138. Potassium 4.0. Bicarb 22. BUN 24. Creatinine 1.2. Glucose 74. AST 77. ALT 104. Alk phos 299. Objective - Vital Signs Vital signs: Vital Signs Temp 98.4 F 08/01/24 06:52 Pulse 84 08/01/24 06:52 Resp 18 08/01/24 06:52 BP 165/63 08/01/24 06:52 Pulse Ox 93 L 08/01/24 06:52 FiO2 Intake & Output 07/31/24 08/01/24 08/01/24 18:59 06:59 18:59 Other: Voiding Method Urinal Urinal Toilet # Voids 2 # Bowel Movements 2 - Exam GENERAL EXAM: Alert, 89-year-old male patient, sitting up in bed, on room air, in no apparent distress. HEAD: Normocephalic. EYES: Normal reaction of pupils, equal size. NOSE: Clear with pink turbinates. THROAT: No erythema or exudates. NECK: No masses, no JVD. CHEST: No chest wall deformity. LUNGS: Equal air entry with crackles in the bilateral bases. CVS: S1 and S2 normal with no audible murmur, regular rhythm. ABDOMEN: Abdominal dressing dry and intact, no hepatosplenomegaly, normal bowel sounds, no guarding or rigidity. SPINE: No scoliosis or deformity SKIN: No rashes CENTRAL NERVOUS SYSTEM: No focal deficits, tone is normal in all 4 extremities. EXTREMITIES: There is no peripheral edema. No clubbing, no cyanosis. Peripheral pulses are intact. - Labs CBC & Chem 7: 08/01/24 03:26 08/01/24 03:26 Labs: Abnormal Lab Results - Last 24 Hours (Table) 08/01/24 08/01/24 Range/Units 03:26 03:26 WBC 12.90 H (4.50-10.00) X 10*3/uL RBC 2.53 L (4.40-5.60) X 10*6/uL Hgb 7.4 L (13.0-17.0) g/dL Hct 22.9 L (39.6-50.0) % RDW 15.6 H (11.5-14.5) % Chloride 110 H (96-109) mmol/L Est GFR (CKD-EPI) 58 L (>=60) Calcium 7.6 L (8.7-10.3) mg/dL Total Bilirubin 1.6 H (0.3-1.2) mg/dL AST 77 H (14-35) U/L ALT 104 H (10-49) U/L Alkaline Phosphatase 299 H (41-126) U/L Total Protein 5.1 L (6.2-8.2) g/dL Albumin 2.4 L (3.8-4.9) g/dL Albumin/Globulin Ratio 0.89 L (1.60-3.17) Ratio Assessment and Plan Assessment: Abdominal pain secondary to acute cholecystitis, gangrenous. Status post laparoscopic cholecystectomy on 07/24/2024. MR MRCP results revealed no bladder fossa demonstrates postsurgical changes with severe inflammation. No organizing fluid collection within the visualized area. Suspected spreading inflammation/infection involving the adjacent liver parenchyma. Hepatic steatosis. No evidence to suggest choledocholithiasis or biliary ductal dilatation. Acute blood loss anemia secondary to above requiring 4 units of packed red blood cells. Current hemoglobin 7.4 Acute kidney injury, secondary to acute tubular necrosis, improving Hypokalemia, receiving replacement therapy Transaminitis secondary to above Hypertension Hyperlipidemia Glaucoma BPH GERD Coronary disease with previous stent placement Plan: The patient was seen and evaluated Imaging, labs and medications reviewed Stable and on room air Continue incentive spirometer Antibiotics per surgical services Tolerating a low-fat diet Increase his activity as tolerated This patient was seen independently by the pulmonary nurse practitioner addressing pulmonary issues I have personally seen and examined the patient, performed the documentation and the assessment and plan as written. Number of minutes spent on the visit: 23 Dictation was produced using [employer] dictation software. Please excuse any grammatical, word or spelling errors.
--- NOTE | 2024-08-01 12:14 | P.PN ---
Subjective Progress Note Date: 08/01/24 CHIEF COMPLAINT: Gangrenous cholecystitis HISTORY OF PRESENT ILLNESS: Patient is postop day #8 status post laparoscopic cholecystectomy. Patient did have an increase in his liver enzymes and bilirubin and had an MRCP completed with no evidence of choledocholithiasis. The gallbladder fossa demonstrates postsurgical changes with severe inflammation. No organizing fluid collection. Suspected spreading inflammation/infection involving the adjacent liver parenchyma. MRCP results were reviewed with Dr. Wells he felt that patient likely passed a gallstone and the inflammation findings are suspected due to his gangrenous gallbladder.. Patient's LFTs and bilirubin are trending down. Total bili is down to 1.6. White count is also trending down from 15-12 hgb 9.0 to 7.4. Not sure if HGB was accurate yesterday. patient reports his pain is controlled. No increase in pain. Does report a decreased appetite. Denies any nausea or vomiting. He is having flatus and bowel movements. Patient seen and examined with Dr. Wells PHYSICAL EXAM: VITAL SIGNS: Reviewed. GENERAL: no acute distress. HEENT: Scleral icterus present ABDOMEN: Soft. Nondistended. bruising along the right lower side of the abdomen is less. NEUROLOGIC: Alert and oriented. Cranial nerves II through XII grossly intact. ASSESSMENT: 1. Gangrenous cholecystitis 2. Acute blood loss anemia due to postoperative bleeding 3. Elevated LFTs and bilirubin PLAN: -Recommend that patient stays in the hospital over the weekend -Agree with ECF placement at discharge -Continue antibiotics -Lovenox remains on hold due to the acute blood loss anemia -Repeat CBC now to follow up on hgb -Repeat CBC and CMP in a.m. Physician Cleaning Matron note has been reviewed by physician. Signing provider agrees with the documented findings, assessment, and plan of care. Objective - Vital Signs Vital signs: Vital Signs Temp 98.4 F 08/01/24 06:52 Pulse 84 08/01/24 06:52 Resp 18 08/01/24 06:52 BP 165/63 08/01/24 06:52 Pulse Ox 93 L 08/01/24 06:52 FiO2 Intake & Output 07/31/24 08/01/24 08/01/24 18:59 06:59 18:59 Other: Voiding Method Urinal Urinal Toilet # Voids 2 # Bowel Movements 2 - Labs CBC & Chem 7: 10/25/24 03:26 08/01/24 03:26 Labs: Abnormal Lab Results - Last 24 Hours (Table) 08/01/24 08/01/24 Range/Units 03:26 03:26 WBC 12.90 H (4.50-10.00) X 10*3/uL RBC 2.53 L (4.40-5.60) X 10*6/uL Hgb 7.4 L (13.0-17.0) g/dL Hct 22.9 L (39.6-50.0) % RDW 15.6 H (11.5-14.5) % Chloride 110 H (96-109) mmol/L Est GFR (CKD-EPI) 58 L (>=60) Calcium 7.6 L (8.7-10.3) mg/dL Total Bilirubin 1.6 H (0.3-1.2) mg/dL AST 77 H (14-35) U/L ALT 104 H (10-49) U/L Alkaline Phosphatase 299 H (41-126) U/L Total Protein 5.1 L (6.2-8.2) g/dL Albumin 2.4 L (3.8-4.9) g/dL Albumin/Globulin Ratio 0.89 L (1.60-3.17) Ratio
[2024-08-01 12:51] LABS: HCT 27.7 % (39.0-53.0); HGB 8.7 gm/dL (13.0-17.5); Hypochromasia Moderate; MCH 29.2 pg (25.0-35.0); MCHC 31.3 g/dL (31.0-37.0); MCV 93.3 fL (80.0-100.0); Mean Platelet Volume 8.1; Platelet Count 255 k/uL (150-450); RBC 2.97 m/uL (4.30-5.90); RDW 15.3 % (11.5-15.5); WBC 12.4 k/uL (3.8-10.6)
--- NOTE | 2024-08-01 12:53 | P.PN ---
Subjective Progress Note Date: 08/01/24 Principal diagnosis: Bilirubinemia, elevated LFTs This a pleasant 89-year-old male 4 who had presented to the emergency department back on 07/23/2024 with complaints of abdominal pain associated with nausea and vomiting. He had a CT of the abdomen pelvis with findings of prominent gallbladder smith and gallbladder distention as well as cholelithiasis. He was seen by general surgery and underwent cholecystectomy for cholecystitis with Dr. Wells. Following his surgery apparently patient had a drop in his hemoglobin and was thought to have a postop bleed. Yesterday patient was noted to be jaundiced he had repeat labs done showing bilirubin 7.6 AST 203 ALT 170 alkaline phosphatase 492. Gastroenterology was consulted for possible choledocholithiasis. Denies any abdominal pain other than surgical pain when moving, no nausea or vomiting. He had repeat labs today with a bilirubin down to 3.7 AST 132 ALT 146 and alkaline phosphatase 454. Patient denies any history of liver disease, no history of alcoholism or hepatitis. 08/01/2024 Patient seen and examined today as a follow-up. He continues to deny any abdominal pain or epigastric pain. States he has some discomfort with moving. He underwent MRCP yesterday without any evidence of choledocholithiasis or biliary stricture. Bilirubin and LFTs continue to trend down. Today total bilirubin 1.6 AST 77 ALT 104 alkaline phosphatase 299 Objective - Vital Signs Vital signs: Vital Signs Temp 98.5 F 08/01/24 01:24 Pulse 78 08/01/24 01:24 Resp 18 08/01/24 01:24 BP 126/61 08/01/24 01:24 Pulse Ox 95 08/01/24 01:24 FiO2 Intake & Output 07/31/24 07/31/24 08/01/24 06:59 18:59 06:59 Other: Voiding Method Toilet Urinal Urinal # Voids 2 2 # Bowel Movements 2 - Exam General appearance: The patient is alert, oriented, appears in no acute distress. HET: Head is normocephalic and atraumatic. Conjunctiva pink. Sclera anicteric. Neck: Supple without lymphadenopathy. Trachea midline. Heart: Regular. Lungs: Equal expansion, normal respiratory effort. Abdomen: Soft, nontender, nondistended. Surgical incisions well-approximated. Multiple areas of bruising especially along the right side of the abdomen and flank. Skin: No rashes. Jaundice. Extremities: Normal skin color and turgor. No pedal edema. Neurological: No focal deficits. Alert and oriented x3. - Labs CBC & Chem 7: 08/01/24 03:26 08/01/24 03:26 Labs: Abnormal Lab Results - Last 24 Hours (Table) 07/31/24 Range/Units 10:47 PT 13.9 H (10.0-12.5) sec INR 1.3 H (<1.2) Assessment and Plan (1) Jaundice Narrative/Plan: 89-year-old male presenting with abdominal pain with findings of cholelithiasis with cholecystitis who underwent cholecystectomy. He was noted to have significant elevation in his bilirubin yesterday with some elevation as well in his AST and ALT as well as alkaline phosphatase. There was concern for a cholestatic pattern and that patient may have choledocholithiasis. MRCP completed and reviewed with no evidence of choledocholithiasis. Patient likely passed a biliary stone. No plans for ERCP. Continue to trend LFTs. MRCP completed. No evidence of choledocholithiasis or biliary stricture. LFTs are trending down as well as bilirubin. Likely patient had passed biliary stone. No need for ERCP Current Visit: Yes Status: Acute Code(s): R17 - UNSPECIFIED JAUNDICE SNOMED Code(s): 88582653 (2) Elevated LFTs Current Visit: Yes Status: Acute Code(s): R79.89 - OTHER SPECIFIED ABNORMAL FINDINGS OF BLOOD CHEMISTRY SNOMED Code(s): 134918820 (3) Acute renal failure Current Visit: Yes Status: Acute Code(s): N17.9 - ACUTE KIDNEY FAILURE, UNSPECIFIED SNOMED Code(s): 56042028 (4) Cholelithiasis with cholecystitis Current Visit: Yes Status: Acute Code(s): K80.10 - CALCULUS OF GALLBLADDER W CHRONIC CHOLECYST W/O OBSTRUCTION SNOMED Code(s): 365127123 Plan: 1. Continue symptomatic and supportive care 2. Patient may have a low fat low fiber diet 3. MRCP had been ordered and reviewed 4. There is no indication for ERCP 5. Continue with recommendations from general surgery Thank you for this consultation, we will sign off at this time Dr. Manfred Perez I agree with the dictator's note, documented as a scribe by Alexandrea Connor.
[2024-08-01 16:49] LABS: Glucose,Whole Blood 167 mg/dL (70-110)
[2024-08-01 20:36] LABS: Glucose,Whole Blood 153 mg/dL (70-110)
--- NOTE | 2024-08-01 21:24 | P.PN ---
Subjective Progress Note Date: 08/01/24 89-year-old male patient who was admitted back on 07/23/2024 with abdominal pain as a transfer [place]. He was found to have cholecystitis gangrenous and had undergone a laparoscopic cholecystectomy on 07/24/2024. Follow-up CT scan of the abdomen from yesterday 07/27/2024 revealed severe phlegmon in the gallbladder fossa with air bubbles and edema extending into the posterior segment of the right lower liver, free IntraOp peritoneal air and hemoperitoneum. Chronic changes at the lung bases. He did have a drop in hemoglobin to 5.7. He is status post 4 units of packed red blood cells this ad mission. Current hemoglobin 7.6. White count 10.2. INR 1.5. Sodium 141. Potassium 2.9. Bicarb 24. BUN 69. Creatinine 2.21. Glucose 131. He remains on ceftriaxone and Flagyl. D5W with 3 A of bicarb at 100 mL/h. Lovenox for DVT prophylaxis. We are consulted for possible admission to the intensive care unit. He is seen today on the regular medical floor. He is sitting up in a chair. Awake and alert in no acute distress. Maintaining good O2 saturations in the 90s on room air. He is afebrile. Hemodynamically stable. Objective - Vital Signs Vital signs: Vital Signs Temp 98.4 F 08/01/24 06:52 Pulse 84 08/01/24 06:52 Resp 18 08/01/24 06:52 BP 165/63 08/01/24 06:52 Pulse Ox 93 L 08/01/24 06:52 FiO2 Intake & Output 07/31/24 08/01/24 08/01/24 18:59 06:59 18:59 Other: Voiding Method Urinal Urinal Toilet # Voids 2 # Bowel Movements 2 - Exam GENERAL EXAM: Alert, 89-year-old male patient, sitting up in bed, on room air, i n no apparent distress. HEAD: Normocephalic. NECK: No masses, no JVD. CHEST: No chest wall deformity. LUNGS: Equal air entry with crackles in the bilateral bases. CVS: S1 and S2 normal with no audible murmur, regular rhythm. ABDOMEN: Abdominal dressing dry and intact, no hepatosplenomegaly, normal bowel sounds, no guarding or rigidity. CENTRAL NERVOUS SYSTEM: No focal deficits, tone is normal in all 4 extremities. EXTREMITIES: There is no peripheral edema. No clubbing, no cyanosis. Peripheral pulses are intact. - Labs CBC & Chem 7: 08/01/24 12:30 08/01/24 03:26 Labs: Abnormal Lab Results - Last 24 Hours (Table) 08/01/24 08/01/24 08/01/24 Range/Units 03:26 03:26 12:30 WBC 12.90 H 12.4 H (4.50-10.00) X 10*3/uL RBC 2.53 L 2.97 L (4.40-5.60) X 10*6/uL Hgb 7.4 L 8.7 L (13.0-17.0) g/dL Hct 22.9 L 27.7 L (39.6-50.0) % RDW 15.6 H (11.5-14.5) % Chloride 110 H (96-109) mmol/L Est GFR (CKD-EPI) 58 L (>=60) Calcium 7.6 L (8.7-10.3) mg/dL Total Bilirubin 1.6 H (0.3-1.2) mg/dL AST 77 H (14-35) U/L ALT 104 H (10-49) U/L Alkaline Phosphatase 299 H (41-126) U/L Total Protein 5.1 L (6.2-8.2) g/dL Albumin 2.4 L (3.8-4.9) g/dL Albumin/Globulin Ratio 0.89 L (1.60-3.17) Ratio Assessment and Plan Assessment: -Acute cholecystitis with gallstones on presentation. Laparoscopic cholecystectomy for gangrenous cholecystitis IV ceftriaxone. IV Flagyl. Being followed by Dr Wells. Regular diet -Acute increase in LFTs with a cholestatic pattern including bilirubin and alk phos.: Acute worsening Discussed with Dr Wells. Consult Dr. Manfred Perez for possible ERCP. Ques tionable stone -Hyperlipidemia Lipitor 40 mg a day-currently held -Glaucoma continue eyedrops -Acute postoperative blood loss anemia, at surgical site perihepatic Received 4 units of blood Hemoglobin stable at 9.0 today -Essential hypertension, blood pressure running high losartan to 50 mg nightly. Hydralazine added -Metabolic acidosis from kidney injury: Improved IV bicarbonate drip discontinued at this time -GERD Prilosec 20 mg a day -Hypokalemia Replace potassium -BPH Flomax 0.4 mg a day -CAD with stent about 20 years ago. Had a stress test a year ago that was negative. Lipitor-hold because of increased LFTs -Kidney injury, acute versus chronic: Improving Patient's last documented creatinine was 0.7 in April 2021. On admission 3. IV fluids. Repeat labs Nephrology following -Post operative transaminitis, with normal bilirubin: Slow response DC [place]. DC Lipitor. -Full code
[2024-08-02 06:19] LABS: Glucose,Whole Blood 149 mg/dL (70-110)
[2024-08-02 09:31] LABS: Basophils # (A) 0.04 X 10*3/uL (0.00-0.10); Basophils % (A) 0.4 %; Eosinophils # (A) 0.63 X 10*3/uL (0.04-0.35); Eosinophils % (A) 5.6 %; HGB 7.1 g/dL (13.0-17.0); Lymphocytes % (A) 15.1 %; MCH 29.3 pg (27.0-32.0); MCHC 30.9 g/dL (32.0-37.0); Mean Platelet Volume 11.2 FL (9.5-12.2); Monocytes # (A) 1.02 X 10*3/uL (0.20-1.00); NRBC Per 100 WBC 0 X 10*3/uL (0.00-0.01); Neutrophils # (A) 7.65 X 10*3/uL (1.80-7.70); Neutrophils % (A) 67.8 %; Platelet Count 225 X 10*3/uL (140-440); RBC 2.42 X 10*6/uL (4.40-5.60); RDW 15.6 % (11.5-14.5); WBC 11.28 X 10*3/uL (4.50-10.00)
[2024-08-02 09:32] LABS: ALT 82 U/L (10-49); AST 61 U/L (14-35); Albumin 2.4 g/dL (3.8-4.9); Albumin/Globulin Ratio 0.96 Ratio (1.60-3.17); Alkaline Phosphatase 240 U/L (41-126); BUN/Creat Ratio 19.58 Ratio (12.00-20.00); Blood Urea Nitrogen 23.5 mg/dL (9.0-27.0); Calcium 7.4 mg/dL (8.7-10.3); Carbon Dioxide 20.5 mmol/L (21.6-31.8); Chloride 110 mmol/L (96-109); Globulin 2.5 g/dL (1.6-3.3); Glucose 122 mg/dL (70-110); Potassium 3.8 mmol/L (3.5-5.5); Sodium 138 mmol/L (135-145); Total Bilirubin 1.1 mg/dL (0.3-1.2); Total Protein 4.9 g/dL (6.2-8.2)
--- NOTE | 2024-08-02 11:36 | P.PN ---
Subjective Progress Note Date: 08/02/24 This is a pleasant 89-year-old male patient who was admitted back on 07/23/2024 with abdominal pain as a transfer from [place]. He was found to have cholecystitis gangrenous and had undergone a laparoscopic cholecystectomy on 07/24/2024. Follow-up CT scan of the abdomen from yesterday 07/27/2024 revealed severe phlegmon in the gallbladder fossa with air bubbles and edema extending into the posterior segment of the right lower liver, free IntraOp peritoneal air and hemoperitoneum. Chronic changes at the lung bases. He did have a drop in hemoglobin to 5.7. He is status post 4 units of packed red blood cells this admission. Current hemoglobin 7.6. White count 10.2. INR 1.5. Sodium 141. Potassium 2.9. Bicarb 24. BUN 69. Creatinine 2.21. Glucose 131. He remains on ceftriaxone and Flagyl. D5W with 3 A of bicarb at 100 mL/h. Lovenox for DVT prophylaxis. We are consulted for possible admission to the intensive care unit. He is seen today on the regular medical floor. He is sitting up in a chair. Awake and alert in no acute distress. Maintaining good O2 saturations in the 90s on room air. He is afebrile. Hemodynamically stable. The patient is seen today July 29, 2024 in follow-up on the regular medical floor. He is currently sitting up in a chair. Awake and alert in no acute distress. He is maintaining O2 saturations in the 90s on room air. He is status post 4 units of packed red blood cells this admission. Current hemoglobin 7.4. White count 10.7. Platelets 203. Sodium 142. Potassium 3.3. Bicarb 28. BUN 41. Creatinine 1.60. Glucose 105. AST 114. ALT 156. He remains on ceftriaxone and Flagyl. Tolerating a clear liquid diet. The patient is seen today July 30, 2024 in follow-up on the regular medical floor. He is awake and alert in no acute distress. Sitting up in a chair at the bedside. Maintaining good O2 saturations in the mid 90s on room air. Has been afebrile. Somewhat hypertensive. He is status post 4 units of packed red blood cells this admission. Current hemoglobin 7.4. Glucose 144. Sodium 142. Potassium 3.5. Bicarb 25. BUN 25. Creatinine 1.3. He remains on ceftriaxone. The patient is seen today July 31, 2024 in follow-up on the regular medical floor. He is currently resting comfortably in bed. Awake and alert in no acute distress. Maintaining good O2 saturations in the 90s on room air. Denies any worsening shortness of breath, cough or congestion. White count 15.9. Hemoglobin 9.0. Platelets 257. INR 1.3. Sodium 133. Potassium 3.4. Bicarb 24. BUN 26. Creatinine 1.29. AST 132. ALT 146. Alk phos 454. He is continued on ceftriaxone and Flagyl. The patient is seen today August 01, 2024 in follow-up on the regular medical floor. He is currently sitting up in bed. Awake and alert in no acute distress. Maintaining good O2 saturations in the 90s on room air. He remains on ceftriaxone and Flagyl. MR MRCP results revealed no bladder fossa demonstrates postsurgical changes with severe inflammation. No organizing fluid collection within the visualized area. Suspected spreading inflammation/infection involving the adjacent liver parenchyma. Hepatic steatosis. No evidence to suggest choledocholithiasis or biliary ductal dilatation. White count 12.9. Hemoglobin 7.4. Platelets 223. Sodium 138. Potassium 4.0. Bicarb 22. BUN 24. Creatinine 1.2. Glucose 74. AST 77. ALT 104. Alk phos 299. The patient is seen today August 02, 2024 in follow-up on the regular medical floor. He is currently up in a chair. Awake and alert in no acute distress. Maintaining good O2 saturations in the 90s on room air. He denies any shortness of breath, cough or congestion. He is status post 4 units of packed red blood cells. Current hemoglobin 7.3. Platelets 225. White count 11.2. Sodium 138. Potassium 3.8. Bicarb 21. BUN 24. Creatinine 1.2. Glucose 122. He is on ceftriaxone and Flagyl. Continues to work well with the incentive spirometer. Objective - Vital Signs Vital signs: Vital Signs Temp 98.6 F 08/02/24 07:10 Pulse 87 08/02/24 07:10 Resp 20 08/02/24 07:10 BP 133/61 08/02/24 07:10 Pulse Ox 94 L 08/02/24 07:10 FiO2 Intake & Output 08/01/24 08/02/24 08/02/24 18:59 06:59 18:59 Weight 81.647 kg Other: Voiding Method Toilet Toilet - Exam GENERAL EXAM: Alert, oriented, pleasant 89-year-old male patient, up in a chair, on room air, in no apparent distress. HEAD: Normocephalic. EYES: Normal reaction of pupils, equal size. NOSE: Clear with pink turbinates. THROAT: No erythema or exudates. NECK: No masses, no JVD. CHEST: No chest wall deformity. LUNGS: Equal air entry with crackles in the bilateral bases. CVS: S1 and S2 normal with no audible murmur, regular rhythm. ABDOMEN: Abdominal dressing dry and intact, no hepatosplenomegaly, normal bowel sounds, no guarding or rigidity. SPINE: No scoliosis or deformity SKIN: No rashes CENTRAL NERVOUS SYSTEM: No focal deficits, tone is normal in all 4 extremities. EXTREMITIES: There is no peripheral edema. No clubbing, no cyanosis. Peripheral pulses are intact. - Labs CBC & Chem 7: 08/02/24 02:51 08/02/24 02:51 Labs: Abnormal Lab Results - Last 24 Hours (Table) 08/01/24 08/01/24 08/01/24 Range/Units 12:30 16:48 19:40 WBC 12.4 H (3.8-10.6) k/uL RBC 2.97 L (4.30-5.90) m/uL Hgb 8.7 L (13.0-17.5) gm/dL Hct 27.7 L (39.0-53.0) % MCHC (32.0-37.0) g/dL RDW (11.5-14.5) % Immature Gran # (0.00-0.04) X 10*3/uL Monocytes # (0.20-1.00) X 10*3/uL Eosinophils # (0.04-0.35) X 10*3/uL Chloride (96-109) mmol/L Carbon Dioxide (21.6-31.8) mmol/L Est GFR (CKD-EPI) (>=60) Glucose (70-110) mg/dL POC Glucose (mg/dL) 167 H 153 H (70-110) mg/dL Calcium (8.7-10.3) mg/dL AST (14-35) U/L ALT (10-49) U/L Alkaline Phosphatase (41-126) U/L Total Protein (6.2-8.2) g/dL Albumin (3.8-4.9) g/dL Albumin/Globulin Ratio (1.60-3.17) Ratio 08/02/24 08/02/24 08/02/24 Range/Units 02:51 02:51 06:18 WBC 11.28 H (3.8-10.6) k/uL RBC 2.42 L (4.30-5.90) m/uL Hgb 7.1 L (13.0-17.5) gm/dL Hct 23.0 L (39.0-53.0) % MCHC 30.9 L (32.0-37.0) g/dL RDW 15.6 H (11.5-14.5) % Immature Gran # 0.24 H (0.00-0.04) X 10*3/uL Monocytes # 1.02 H (0.20-1.00) X 10*3/uL Eosinophils # 0.63 H (0.04-0.35) X 10*3/uL Chloride 110 H (96-109) mmol/L Carbon Dioxide 20.5 L (21.6-31.8) mmol/L Est GFR (CKD-EPI) 58 L (>=60) Glucose 122 H (70-110) mg/dL POC Glucose (mg/dL) 149 H (70-110) mg/dL Calcium 7.4 L (8.7-10.3) mg/dL AST 61 H (14-35) U/L ALT 82 H (10-49) U/L Alkaline Phosphatase 240 H (41-126) U/L Total Protein 4.9 L (6.2-8.2) g/dL Albumin 2.4 L (3.8-4.9) g/dL Albumin/Globulin Ratio 0.96 L (1.60-3.17) Ratio Assessment and Plan Assessment: Abdominal pain secondary to acute cholecystitis, gangrenous. Status post laparoscopic cholecystectomy on 07/24/2024. MR MRCP results revealed no bladder fossa demonstrates postsurgical changes with severe inflammation. No organizing fluid collection within the visualized area. Suspected spreading inflammation/infection involving the adjacent liver parenchyma. Hepatic steatosis. No evidence to suggest choledocholithiasis or biliary ductal dilatation. Acute blood loss anemia secondary to above requiring 4 units of packed red blood cells. Current hemoglobin 7.1 Acute kidney injury, secondary to acute tubular necrosis, improving Hypokalemia, receiving replacement therapy Transaminitis secondary to above Hypertension Hyperlipidemia Glaucoma BPH GERD Coronary disease with previous stent placement Plan: The patient was seen and evaluated Labs and medications reviewed Stable and on room air Continue incentive spirometer Continue antibiotics Tolerating a low-fat diet Plan is for subacute rehabilitation at discharge This patient was seen independently by the pulmonary nurse practitioner edwin rodríguez pulmonary issues I have personally seen and examined the patient, performed the documentation and the assessment and plan as written. Number of minutes spent on the visit: 24 Dictation was produced using [employer] dictation software. Please excuse any grammatical, word or spelling errors.
[2024-08-02 11:39] LABS: Glucose,Whole Blood 180 mg/dL (70-110)
[2024-08-02 11:42] LABS: HCT 28.7 % (39.0-53.0); Hypochromasia Moderate; MCH 29.9 pg (25.0-35.0); MCHC 31.4 g/dL (31.0-37.0); MCV 95.2 fL (80.0-100.0); Mean Platelet Volume 9.1; Platelet Count 267 k/uL (150-450); RBC 3.02 m/uL (4.30-5.90); RDW 15.4 % (11.5-15.5); WBC 11.6 k/uL (3.8-10.6)
[2024-08-02 16:46] LABS: Glucose,Whole Blood 146 mg/dL (70-110)
--- NOTE | 2024-08-02 17:18 | P.PN ---
Subjective Progress Note Date: 08/02/24 NAEON. No N/V. No F/C. No SOB or CP. Admits to flatus and BM. Tolerating diet. Objective - Vital Signs Vital signs: Vital Signs Temp 98.3 F 08/02/24 13:57 Pulse 90 08/02/24 13:57 Resp 18 08/02/24 13:57 BP 146/57 08/02/24 13:57 Pulse Ox 97 08/02/24 13:57 FiO2 Intake & Output 08/01/24 08/02/24 08/02/24 18:59 06:59 18:59 Weight 81.647 kg Other: Voiding Method Toilet Toilet # Voids 1 - Exam Gen: AxO, NAD Pulm: non-labored respirations Abd: soft, non-tender, non-distended Incisions: C/D/I Extrem: no edema seen - Labs CBC & Chem 7: 08/02/24 11:31 08/02/24 02:51 Labs: Abnormal Lab Results - Last 24 Hours (Table) 08/01/24 08/02/24 08/02/24 Range/Units 19:40 02:51 02:51 WBC 11.28 H (4.50-10.00) X 10*3/uL RBC 2.42 L (4.40-5.60) X 10*6/uL Hgb 7.1 L (13.0-17.0) g/dL Hct 23.0 L (39.6-50.0) % MCHC 30.9 L (32.0-37.0) g/dL RDW 15.6 H (11.5-14.5) % Immature Gran # 0.24 H (0.00-0.04) X 10*3/uL Monocytes # 1.02 H (0.20-1.00) X 10*3/uL Eosinophils # 0.63 H (0.04-0.35) X 10*3/uL Chloride 110 H (96-109) mmol/L Carbon Dioxide 20.5 L (21.6-31.8) mmol/L Est GFR (CKD-EPI) 58 L (>=60) Glucose 122 H (70-110) mg/dL POC Glucose (mg/dL) 153 H (70-110) mg/dL Calcium 7.4 L (8.7-10.3) mg/dL AST 61 H (14-35) U/L ALT 82 H (10-49) U/L Alkaline Phosphatase 240 H (41-126) U/L Total Protein 4.9 L (6.2-8.2) g/dL Albumin 2.4 L (3.8-4.9) g/dL Albumin/Globulin Ratio 0.96 L (1.60-3.17) Ratio 08/02/24 08/02/24 08/02/24 Range/Units 06:18 11:31 11:38 WBC 11.6 H (4.50-10.00) X 10*3/uL RBC 3.02 L (4.40-5.60) X 10*6/uL Hgb 9.0 L (13.0-17.0) g/dL Hct 28.7 L (39.6-50.0) % MCHC (32.0-37.0) g/dL RDW (11.5-14.5) % Immature Gran # (0.00-0.04) X 10*3/uL Monocytes # (0.20-1.00) X 10*3/uL Eosinophils # (0.04-0.35) X 10*3/uL Chloride (96-109) mmol/L Carbon Dioxide (21.6-31.8) mmol/L Est GFR (CKD-EPI) (>=60) Glucose (70-110) mg/dL POC Glucose (mg/dL) 149 H 180 H (70-110) mg/dL Calcium (8.7-10.3) mg/dL AST (14-35) U/L ALT (10-49) U/L Alkaline Phosphatase (41-126) U/L Total Protein (6.2-8.2) g/dL Albumin (3.8-4.9) g/dL Albumin/Globulin Ratio (1.60-3.17) Ratio 08/02/24 Range/Units 16:45 WBC (4.50-10.00) X 10*3/uL RBC (4.40-5.60) X 10*6/uL Hgb (13.0-17.0) g/dL Hct (39.6-50.0) % MCHC (32.0-37.0) g/dL RDW (11.5-14.5) % Immature Gran # (0.00-0.04) X 10*3/uL Monocytes # (0.20-1.00) X 10*3/uL Eosinophils # (0.04-0.35) X 10*3/uL Chloride (96-109) mmol/L Carbon Dioxide (21.6-31.8) mmol/L Est GFR (CKD-EPI) (>=60) Glucose (70-110) mg/dL POC Glucose (mg/dL) 146 H (70-110) mg/dL Calcium (8.7-10.3) mg/dL AST (14-35) U/L ALT (10-49) U/L Alkaline Phosphatase (41-126) U/L Total Protein (6.2-8.2) g/dL Albumin (3.8-4.9) g/dL Albumin/Globulin Ratio (1.60-3.17) Ratio Assessment and Plan Assessment: Patient is a 89 year old male who is s/p laparoscopic cholecystectomy Plan: -Diet as tolerated -IVF hydration -PRN pain and nausea control -DVT/GI PPx -Activity as tolerated -Plan for dc to [facility] on 08/04 Álvaro Walker M.D. General Surgery
[2024-08-02 20:07] LABS: Glucose,Whole Blood 117 mg/dL (70-110)
[2024-08-03 06:13] LABS: Glucose,Whole Blood 116 mg/dL (70-110)
--- NOTE | 2024-08-03 10:22 | P.PN ---
Subjective Patient is seen in follow-up for acute kidney injury. Renal function improved with creatinine 0.77 yesterday. Denies chest pain or shortness of breath. Hemodynamically stable. [place] catheter removed July 30, 2024. Has been voiding on his own. Oral intake fair. Vital signs are stable. General: No acute distress. HEENT: Head exam is unremarkable. LUNGS: No audible rhonchi or wheezes. HEART: Rate and Rhythm are regular. ABDOMEN: Nontender. EXTREMITITES: No edema. Objective - Vital Signs Vital signs: Vital Signs Temp 98.1 F 08/03/24 07:14 Pulse 91 08/03/24 07:14 Resp 18 08/03/24 07:14 BP 145/53 08/03/24 07:14 Pulse Ox 95 08/03/24 07:14 FiO2 Intake & Output 08/02/24 08/03/24 08/03/24 18:59 06:59 18:59 Other: Voiding Method Toilet # Voids 1 - Labs CBC & Chem 7: 08/02/24 11:31 08/02/24 02:51 Labs: Abnormal Lab Results - Last 24 Hours (Table) 08/02/24 08/02/24 08/02/24 Range/Units 11:31 11:38 16:45 WBC 11.6 H (3.8-10.6) k/uL RBC 3.02 L (4.30-5.90) m/uL Hgb 9.0 L (13.0-17.5) gm/dL Hct 28.7 L (39.0-53.0) % POC Glucose (mg/dL) 180 H 146 H (70-110) mg/dL 08/02/24 08/03/24 Range/Units 20:06 06:12 WBC (3.8-10.6) k/uL RBC (4.30-5.90) m/uL Hgb (13.0-17.5) gm/dL Hct (39.0-53.0) % POC Glucose (mg/dL) 117 H 116 H (70-110) mg/dL Assessment and Plan Plan: Assessment: 1. Acute kidney injury secondary to ATN. Creatinine 0.73 in April 2021. Creatinine peaked at 3.64 this admission and improved to 1.2. No hydronephrosis noted on CT. UA shows granular casts which is suggestive of ATN. Serologies negative so far. 2. Acute blood loss anemia status post blood transfusions. Hemoglobin stable at 9.0 dated August 02, 2024. 3. Metabolic acidosis secondary to acute kidney injury status post bicarb drip. 4. History of BPH and prostatomegaly. 5. Acute cholecystitis with cholelithiasis status post laparoscopic cholecystectomy July 24, 2024. MRCP showed hepatic steatosis, severe inflammation in the gallbladder fossa. 6. Hypokalemia from poor intake. Replaced. Improved. 7. Hypomagnesemia from poor intake. On oral magnesium oxide. Improved. Plan: Maintain off of IV fluids. Avoid nephrotoxins. Encouraged oral intake.
--- NOTE | 2024-08-03 11:20 | P.PN ---
Subjective Progress Note Date: 08/03/24 Principal diagnosis: Cholecystitis Patient doing well today. Sitting up in the chair. Tolerating diet. Says his pain is improving. Objective - Vital Signs Vital signs: Vital Signs Temp 98.1 F 08/03/24 07:14 Pulse 91 08/03/24 07:14 Resp 18 08/03/24 07:14 BP 145/53 08/03/24 07:14 Pulse Ox 95 08/03/24 07:14 FiO2 Intake & Output 08/02/24 08/03/24 08/03/24 18:59 06:59 18:59 Other: Voiding Method Toilet # Voids 1 # Bowel Movements 1 - Exam Abdomen: Soft, nondistended, mild right upper quadrant tenderness, incisions clean and dry - Labs CBC & Chem 7: 08/02/24 11:31 08/02/24 02:51 Labs: Abnormal Lab Results - Last 24 Hours (Table) 08/02/24 08/02/24 08/02/24 Range/Units 11:31 11:38 16:45 WBC 11.6 H (3.8-10.6) k/uL RBC 3.02 L (4.30-5.90) m/uL Hgb 9.0 L (13.0-17.5) gm/dL Hct 28.7 L (39.0-53.0) % POC Glucose (mg/dL) 180 H 146 H (70-110) mg/dL 08/02/24 08/03/24 Range/Units 20:06 06:12 WBC (3.8-10.6) k/uL RBC (4.30-5.90) m/uL Hgb (13.0-17.5) gm/dL Hct (39.0-53.0) % POC Glucose (mg/dL) 117 H 116 H (70-110) mg/dL Assessment and Plan (1) Cholelithiasis with cholecystitis Narrative/Plan: Patient gradually improving. Continue increasing activity. Anticipate discharge to [facility] tomorrow. Current Visit: Yes Status: Acute Code(s): K80.10 - CALCULUS OF GALLBLADDER W CHRONIC CHOLECYST W/O OBSTRUCTION SNOMED Code(s): 136178219
[2024-08-03 11:23] LABS: Glucose,Whole Blood 152 mg/dL (70-110)
--- NOTE | 2024-08-03 11:48 | P.PN ---
Subjective Progress Note Date: 08/03/24 This is a pleasant 89-year-old male patient who was admitted back on 07/23/2024 with abdominal pain as a transfer from [place]. He was found to have cholecystitis gangrenous and had undergone a laparoscopic cholecystectomy on 07/24/2024. Follow-up CT scan of the abdomen from yesterday 07/27/2024 revealed severe phlegmon in the gallbladder fossa with air bubbles and edema extending into the posterior segment of the right lower liver, free IntraOp peritoneal air and hemoperitoneum. Chronic changes at the lung bases. He did have a drop in hemoglobin to 5.7. He is status post 4 units of packed red blood cells this admission. Current hemoglobin 7.6. White count 10.2. INR 1.5. Sodium 141. Potassium 2.9. Bicarb 24. BUN 69. Creatinine 2.21. Glucose 131. He remains on ceftriaxone and Flagyl. D5W with 3 A of bicarb at 100 mL/h. Lovenox for DVT prophylaxis. We are consulted for possible admission to the intensive care unit. He is seen today on the regular medical floor. He is sitting up in a chair. Awake and alert in no acute distress. Maintaining good O2 saturations in the 90s on room air. He is afebrile. Hemodynamically stable. The patient is seen today July 29, 2024 in follow-up on the regular medical floor. He is currently sitting up in a chair. Awake and alert in no acute distress. He is maintaining O2 saturations in the 90s on room air. He is status post 4 units of packed red blood cells this admission. Current hemoglobin 7.4. White count 10.7. Platelets 203. Sodium 142. Potassium 3.3. Bicarb 28. BUN 41. Creatinine 1.60. Glucose 105. AST 114. ALT 156. He remains on ceftriaxone and Flagyl. Tolerating a clear liquid diet. The patient is seen today July 30, 2024 in follow-up on the regular medical floor. He is awake and alert in no acute distress. Sitting up in a chair at the bedside. Maintaining good O2 saturations in the mid 90s on room air. Has been afebrile. Somewhat hypertensive. He is status post 4 units of packed red blood cells this admission. Current hemoglobin 7.4. Glucose 144. Sodium 142. Potassium 3.5. Bicarb 25. BUN 25. Creatinine 1.3. He remains on ceftriaxone. The patient is seen today July 31, 2024 in follow-up on the regular medical floor. He is currently resting comfortably in bed. Awake and alert in no acute distress. Maintaining good O2 saturations in the 90s on room air. Denies any worsening shortness of breath, cough or congestion. White count 15.9. Hemoglobin 9.0. Platelets 257. INR 1.3. Sodium 133. Potassium 3.4. Bicarb 24. BUN 26. Creatinine 1.29. AST 132. ALT 146. Alk phos 454. He is continued on ceftriaxone and Flagyl. The patient is seen today August 01, 2024 in follow-up on the regular medical floor. He is currently sitting up in bed. Awake and alert in no acute distress. Maintaining good O2 saturations in the 90s on room air. He remains on ceftriaxone and Flagyl. MR MRCP results revealed no bladder fossa demonstrates postsurgical changes with severe inflammation. No organizing fluid collection within the visualized area. Suspected spreading inflammation/infection involving the adjacent liver parenchyma. Hepatic steatosis. No evidence to suggest choledocholithiasis or biliary ductal dilatation. White count 12.9. Hemoglobin 7.4. Platelets 223. Sodium 138. Potassium 4.0. Bicarb 22. BUN 24. Creatinine 1.2. Glucose 74. AST 77. ALT 104. Alk phos 299. The patient is seen today August 02, 2024 in follow-up on the regular medical floor. He is currently up in a chair. Awake and alert in no acute distress. Maintaining good O2 saturations in the 90s on room air. He denies any shortness of breath, cough or congestion. He is status post 4 units of packed red blood cells. Current hemoglobin 7.3. Platelets 225. White count 11.2. Sodium 138. Potassium 3.8. Bicarb 21. BUN 24. Creatinine 1.2. Glucose 122. He is on ceftriaxone and Flagyl. Continues to work well with the incentive spirometer. The patient is seen today August 03, 2024 in follow-up on the regular medical floor. He is awake and alert in no acute distress. Sitting up in the chair. Denies any shortness of breath, cough or congestion. Denies any abdominal pain. He is maintaining good O2 saturations in the mid 90s on room air. Has been afebrile. Hemodynamically stable. He continues work well with the incentive spirometer. He remains on antibiotics in the form of ceftriaxone and Flagyl. He is tolerating a low fiber diet. Objective - Vital Signs Vital signs: Vital Signs Temp 98.1 F 08/03/24 07:14 Pulse 91 08/03/24 07:14 Resp 18 08/03/24 07:14 BP 145/53 08/03/24 07:14 Pulse Ox 95 08/03/24 07:14 FiO2 Intake & Output 08/02/24 08/03/24 08/03/24 18:59 06:59 18:59 Other: Voiding Method Toilet # Voids 1 # Bowel Movements 1 - Exam GENERAL EXAM: Alert, 89-year-old male patient, on room air, in no apparent distress. HEAD: Normocephalic. EYES: Normal reaction of pupils, equal size. NOSE: Clear with pink turbinates. THROAT: No erythema or exudates. NECK: No masses, no JVD. CHEST: No chest wall deformity. LUNGS: Equal air entry with crackles in the bilateral bases. CVS: S1 and S2 normal with no audible murmur, regular rhythm. ABDOMEN: Abdominal dressing dry and intact, no hepatosplenomegaly, normal bowel sounds, no guarding or rigidity. SPINE: No scoliosis or deformity SKIN: No rashes CENTRAL NERVOUS SYSTEM: No focal deficits, tone is normal in all 4 extremities. EXTREMITIES: There is no peripheral edema. No clubbing, no cyanosis. Peripheral pulses are intact. - Labs CBC & Chem 7: 08/02/24 11:31 08/02/24 02:51 Labs: Abnormal Lab Results - Last 24 Hours (Table) 08/02/24 08/02/24 08/03/24 Range/Units 16:45 20:06 06:12 POC Glucose (mg/dL) 146 H 117 H 116 H (70-110) mg/dL 08/03/24 Range/Units 11:22 POC Glucose (mg/dL) 152 H (70-110) mg/dL Assessment and Plan Assessment: Abdominal pain secondary to acute cholecystitis, gangrenous. Status post laparoscopic cholecystectomy on 07/24/2024. MR MRCP results revealed no bladder fossa demonstrates postsurgical changes with severe inflammation. No organizing fluid collection within the visualized area. Suspected spreading inflammation/infection involving the adjacent liver parenchyma. Hepatic steatosis. No evidence to suggest choledocholithiasis or biliary ductal dilatation. Acute blood loss anemia secondary to above requiring 4 units of packed red blood cells. Current hemoglobin 9.0 Acute kidney injury, secondary to acute tubular necrosis, improving Hypokalemia, receiving replacement therapy Transaminitis secondary to above Hypertension Hyperlipidemia Glaucoma BPH GERD Coronary disease with previous stent placement Plan: The patient was seen and evaluated Labs and medications reviewed Stable and on room air Continue incentive spirometer Plan is for subacute rehabilitation probably tomorrow This patient was seen independently by the pulmonary nurse practitioner addressing pulmonary issues I have personally seen and examined the patient, performed the documentation and the assessment and plan as written. Number of minutes spent on the visit: 23 Dictation was produced using [employer] dictation software. Please excuse any grammatical, word or spelling errors.
--- NOTE | 2024-08-03 16:02 | P.PN ---
Subjective Progress Note Date: 08/02/24 89-year-old male patient who was admitted back on 07/23/2024 with abdominal pain as a transfer from [place]. He was found to have cholecystitis gangrenous and had undergone a laparoscopic cholecystectomy on 07/24/2024. Follow-up CT scan of the abdomen from yesterday 07/27/2024 revealed severe phlegmon in the gallbladder fossa with air bubbles and edema extending into the posterior segment of the right lower liver, free IntraOp peritoneal air and hemoperitoneum. Chronic changes at the lung bases. He did have a drop in hemoglobin to 5.7. He is status post 4 units of packed red blood cells this ad mission. Current hemoglobin 7.6. White count 10.2. INR 1.5. Sodium 141. Potassium 2.9. Bicarb 24. BUN 69. Creatinine 2.21. Glucose 131. He remains on ceftriaxone and Flagyl. D5W with 3 A of bicarb at 100 mL/h. Lovenox for DVT prophylaxis. We are consulted for possible admission to the intensive care unit. He is seen today on the regular medical floor. He is sitting up in a chair. Awake and alert in no acute distress. Maintaining good O2 saturations in the 90s on room air. He is afebrile. Hemodynamically stable. 08/02/2024 Patient is seen and evaluated in follow-up on the regular medical floor. He is currently up in a chair. Awake and alert in no acute distress. Maintaining good O2 saturations in the 90s on room air. He denies any shortness of breath, cough or congestion. He is status post 4 units of packed red blood cells. Current hemoglobin 7.3. Platelets 225. White count 11.2. Sodium 138. Potassium 3.8. Bicarb 21. BUN 24. Creatinine 1.2. Glucose 122. He is on ceftriaxone and Flagyl. Continues to work well with the incentive spirometer. -He is to continue with current IV antibiotics; he is tolerating low-fat diet well -- Plan to discharge to subacute rehab once stable Objective - Vital Signs Vital signs: Vital Signs Temp 98.6 F 08/02/24 07:10 Pulse 87 08/02/24 07:10 Resp 20 08/02/24 07:10 BP 133/61 08/02/24 07:10 Pulse Ox 94 L 08/02/24 07:10 FiO2 Intake & Output 08/01/24 08/02/24 08/02/24 18:59 06:59 18:59 Weight 81.647 kg Other: Voiding Method Toilet Toilet - Exam GENERAL EXAM: Alert, 89-year-old male patient, sitting up in bed, on room air, in no apparent distress. HEAD: Normocephalic. NECK: No masses, no JVD. CHEST: No chest wall deformity. LUNGS: Equal air entry with crackles in the bilateral bases. CVS: S1 and S2 normal with no audible murmur, regular rhythm. ABDOMEN: Abdominal dressing dry and intact, no hepatosplenomegaly, normal bowel sounds, no guarding or rigidity. CENTRAL NERVOUS SYSTEM: No focal deficits, tone is normal in all 4 extremities. EXTREMITIES: There is no peripheral edema. No clubbing, no cyanosis. Peripheral pulses are intact. - Labs CBC & Chem 7: 08/02/24 11:31 08/02/24 02:51 Labs: Abnormal Lab Results - Last 24 Hours (Table) 08/01/24 08/01/24 08/01/24 Range/Units 12:30 16:48 19:40 WBC 12.4 H (3.8-10.6) k/uL RBC 2.97 L (4.30-5.90) m/uL Hgb 8.7 L (13.0-17.5) gm/dL Hct 27.7 L (39.0-53.0) % MCHC (32.0-37.0) g/dL RDW (11.5-14.5) % Immature Gran # (0.00-0.04) X 10*3/uL Monocytes # (0.20-1.00) X 10*3/uL Eosinophils # (0.04-0.35) X 10*3/uL Chloride (96-109) mmol/L Carbon Dioxide (21.6-31.8) mmol/L Est GFR (CKD-EPI) (>=60) Glucose (70-110) mg/dL POC Glucose (mg/dL) 167 H 153 H (70-110) mg/dL Calcium (8.7-10.3) mg/dL AST (14-35) U/L ALT (10-49) U/L Alkaline Phosphatase (41-126) U/L Total Protein (6.2-8.2) g/dL Albumin (3.8-4.9) g/dL Albumin/Globulin Ratio (1.60-3.17) Ratio 08/02/24 08/02/24 08/02/24 Range/Units 02:51 02:51 06:18 WBC 11.28 H (3.8-10.6) k/uL RBC 2.42 L (4.30-5.90) m/uL Hgb 7.1 L (13.0-17.5) gm/dL Hct 23.0 L (39.0-53.0) % MCHC 30.9 L (32.0-37.0) g/dL RDW 15.6 H (11.5-14.5) % Immature Gran # 0.24 H (0.00-0.04) X 10*3/uL Monocytes # 1.02 H (0.20-1.00) X 10*3/uL Eosinophils # 0.63 H (0.04-0.35) X 10*3/uL Chloride 110 H (96-109) mmol/L Carbon Dioxide 20.5 L (21.6-31.8) mmol/L Est GFR (CKD-EPI) 58 L (>=60) Glucose 122 H (70-110) mg/dL POC Glucose (mg/dL) 149 H (70-110) mg/dL Calcium 7.4 L (8.7-10.3) mg/dL AST 61 H (14-35) U/L ALT 82 H (10-49) U/L Alkaline Phosphatase 240 H (41-126) U/L Total Protein 4.9 L (6.2-8.2) g/dL Albumin 2.4 L (3.8-4.9) g/dL Albumin/Globulin Ratio 0.96 L (1.60-3.17) Ratio Assessment and Plan Assessment: -Acute cholecystitis with gallstones on presentation. Laparoscopic cholecystectomy for gangrenous cholecystitis IV ceftriaxone. IV Flagyl. Being followed by Dr Wells. Regular diet -Acute increase in LFTs with a cholestatic pattern including bilirubin and alk phos.: Acute worsening Discussed with Dr Wells. Consult Dr. Manfred Perez for possible ERCP. Questionable stone -Hyperlipidemia Lipitor 40 mg a day-currently held -Glaucoma continue eyedrops -Acute postoperative blood loss anemia, at surgical site perihepatic Received 4 units of blood Hemoglobin stable at 9.0 today -Essential hypertension, blood pressure running high losartan to 50 mg nightly. Hydralazine added -Metabolic acidosis from kidney injury: Improved IV bicarbonate drip discontinued at this time -GERD Prilosec 20 mg a day -Hypokalemia Replace potassium -BPH Flomax 0.4 mg a day -CAD with stent about 20 years ago. Had a stress test a year ago that was negative. Lipitor-hold because of increased LFTs -Kidney injury, acute versus chronic: Improving Patient's last documented creatinine was 0.7 in April 2021. On admission 3. IV fluids. Repeat labs Nephrology following -Post operative transaminitis, with normal bilirubin: Slow response DC [place]. DC Lipitor. -Full code
--- NOTE | 2024-08-03 16:04 | P.PN ---
Subjective Progress Note Date: 08/03/24 89-year-old male patient who was admitted back on 07/23/2024 with abdominal pain as a transfer from [place]. He was found to have cholecystitis gangrenous and had undergone a laparoscopic cholecystectomy on 07/24/2024. Follow-up CT scan of the abdomen from yesterday 07/27/2024 revealed severe phlegmon in the gallbladder fossa with air bubbles and edema extending into the posterior segment of the right lower liver, free IntraOp peritoneal air and hemoperitoneum. Chronic changes at the lung bases. He did have a drop in hemoglobin to 5.7. He is status post 4 units of packed red blood cells this ad mission. Current hemoglobin 7.6. White count 10.2. INR 1.5. Sodium 141. Potassium 2.9. Bicarb 24. BUN 69. Creatinine 2.21. Glucose 131. He remains on ceftriaxone and Flagyl. D5W with 3 A of bicarb at 100 mL/h. Lovenox for DVT prophylaxis. We are consulted for possible admission to the intensive care unit. He is seen today on the regular medical floor. He is sitting up in a chair. Awake and alert in no acute distress. Maintaining good O2 saturations in the 90s on room air. He is afebrile. Hemodynamically stable. 08/02/2024 Patient is seen and evaluated in follow-up on the regular medical floor. He is currently up in a chair. Awake and alert in no acute distress. Maintaining good O2 saturations in the 90s on room air. He denies any shortness of breath, cough or congestion. He is status post 4 units of packed red blood cells. Current hemoglobin 7.3. Platelets 225. White count 11.2. Sodium 138. Potassium 3.8. Bicarb 21. BUN 24. Creatinine 1.2. Glucose 122. He is on ceftriaxone and Flagyl. Continues to work well with the incentive spirometer. -He is to continue with current IV antibiotics; he is tolerating low-fat diet well -- Plan to discharge to subacute rehab once stable 08/03/2024 Patient is seen and evaluated in follow-up on the regular medical floor. He is awake and alert in no acute distress. Sitting up in the chair. Denies any shortness of breath, cough or congestion. Denies any abdominal pain. He is maintaining good O2 saturations in the mid 90s on room air. Has been afebrile. Hemodynamically stable. He continues work well with the incentive spirometer. He remains on antibiotics in the form of ceftriaxone and Flagyl. He is tolerating a low fiber diet. Surgery on board and recommending to continue with current diet; commending increase activity Possible discharge to subacute rehab once arrangements are made Objective - Vital Signs Vital signs: Vital Signs Temp 98.1 F 08/03/24 07:14 Pulse 91 08/03/24 07:14 Resp 18 08/03/24 07:14 BP 145/53 08/03/24 07:14 Pulse Ox 95 08/03/24 07:14 FiO2 Intake & Output 08/02/24 08/03/24 08/03/24 18:59 06:59 18:59 Other: Voiding Method Toilet # Voids 1 # Bowel Movements 1 - Exam GENERAL EXAM: Alert, 89-year-old male patient, sitting up in bed, on room air, in no apparent distress. HEAD: Normocephalic. NECK: No masses, no JVD. CHEST: No chest wall deformity. LUNGS: Equal air entry with crackles in the bilateral bases. CVS: S1 and S2 normal with no audible murmur, regular rhythm. ABDOMEN: Abdominal dressing dry and intact, no hepatosplenomegaly, normal bowel sounds, no guarding or rigidity. CENTRAL NERVOUS SYSTEM: No focal deficits, tone is normal in all 4 extremities. EXTREMITIES: There is no peripheral edema. No clubbing, no cyanosis. Peripheral pulses are intact. - Labs CBC & Chem 7: 08/02/24 11:31 08/02/24 02:51 Labs: Abnormal Lab Results - Last 24 Hours (Table) 08/02/24 08/02/24 08/02/24 Range/Units 11:31 11:38 16:45 WBC 11.6 H (3.8-10.6) k/uL RBC 3.02 L (4.30-5.90) m/uL Hgb 9.0 L (13.0-17.5) gm/dL Hct 28.7 L (39.0-53.0) % POC Glucose (mg/dL) 180 H 146 H (70-110) mg/dL 08/02/24 08/03/24 08/03/24 Range/Units 20:06 06:12 11:22 WBC (3.8-10.6) k/uL RBC (4.30-5.90) m/uL Hgb (13.0-17.5) gm/dL Hct (39.0-53.0) % POC Glucose (mg/dL) 117 H 116 H 152 H (70-110) mg/dL Assessment and Plan Assessment: -Acute cholecystitis with gallstones on presentation. Laparoscopic cholecystectomy for gangrenous cholecystitis IV ceftriaxone. IV Flagyl. Being followed by Dr Wells. Regular diet -Acute increase in LFTs with a cholestatic pattern including bilirubin and alk phos.: Acute worsening Discussed with Dr Wells. Consult Dr. Manfred Perez for possible ERCP. Questionable stone -Hyperlipidemia Lipitor 40 mg a day-currently held -Glaucoma continue eyedrops -Acute postoperative blood loss anemia, at surgical site perihepatic Received 4 units of blood Hemoglobin stable at 9.0 today -Essential hypertension, blood pressure running high losartan to 50 mg nightly. Hydralazine added -Metabolic acidosis from kidney injury: Improved IV bicarbonate drip discontinued at this time -GERD Prilosec 20 mg a day -Hypokalemia Replace potassium -BPH Flomax 0.4 mg a day -CAD with stent about 20 years ago. Had a stress test a year ago that was negative. Lipitor-hold because of increased LFTs -Kidney injury, acute versus chronic: Improving Patient's last documented creatinine was 0.7 in April 2021. On admission 3. IV fluids. Repeat labs Nephrology following -Post operative transaminitis, with normal bilirubin: Slow response DC [place]. DC Lipitor. -Full code
[2024-08-03 16:16] LABS: Glucose,Whole Blood 100 mg/dL (70-110)
[2024-08-03 21:17] LABS: Glucose,Whole Blood 153 mg/dL (70-110)
[2024-08-04 06:37] LABS: Glucose,Whole Blood 103 mg/dL (70-110)
[2024-08-04 07:39] VITALS: RESP 16
[2024-08-04 08:54] LABS: BUN/Creat Ratio 19.45 Ratio (12.00-20.00); Blood Urea Nitrogen 21.4 mg/dL (9.0-27.0); Calcium 7.6 mg/dL (8.7-10.3); Carbon Dioxide 20.6 mmol/L (21.6-31.8); Chloride 108 mmol/L (96-109); Glucose 99 mg/dL (70-110); Magnesium 1.9 mg/dL (1.5-2.4); Potassium 4.1 mmol/L (3.5-5.5); Sodium 137 mmol/L (135-145)
[2024-08-04 11:10] LABS: Glucose,Whole Blood 168 mg/dL (70-110)
--- NOTE | 2024-08-04 11:49 | P.PN ---
Subjective Progress Note Date: 08/04/24 CHIEF COMPLAINT: Gangrenous cholecystitis HISTORY OF PRESENT ILLNESS: Patient is postop day #11 status post laparoscopic cholecystectomy. Patient sitting up in bedside chair comfortably. Patient tolerating diet. Having bowel movements. Pain controlled. They are planning discharge to ECF today. Afebrile. Last total bilirubin on 1026 normalized at 1.1 LFTs have trended down. Hemoglobin stable at 9.0 PHYSICAL EXAM: VITAL SIGNS: Reviewed. GENERAL: no acute distress. HEENT: No Scleral icterus present ABDOMEN: Soft. Nondistended. bruising along the right lower side of the abdomen is less. NEUROLOGIC: Alert and oriented. Cranial nerves II through XII grossly intact. ASSESSMENT: 1. Gangrenous cholecystitis 2. Acute blood loss anemia due to postoperative bleeding 3. Elevated LFTs trending down. Elevated total bilirubin resolved. Patient likely passed a stone. 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 Signing provider agrees with the documented findings, assessment, and plan of care. Objective - Vital Signs Vital signs: Vital Signs Temp 98.8 F 08/04/24 07:11 Pulse 90 08/04/24 07:11 Resp 16 08/04/24 07:11 BP 132/62 08/04/24 07:11 Pulse Ox 94 L 08/04/24 07:11 FiO2 Intake & Output 08/03/24 08/04/24 08/04/24 18:59 06:59 18:59 Other: Voiding Method Toilet Toilet # Voids 1 # Bowel Movements 1 - Labs CBC & Chem 7: 08/02/24 11:31 08/04/24 02:39 Labs: Abnormal Lab Results - Last 24 Hours (Table) 08/03/24 08/04/24 08/04/24 Range/Units 21:15 02:39 11:09 Carbon Dioxide 20.6 L (21.6-31.8) mmol/L POC Glucose (mg/dL) 153 H 168 H (70-110) mg/dL Calcium 7.6 L (8.7-10.3) mg/dL
[2024-08-04] MEDS ORDERED: ACETAMINOPHEN TAB 325 MG TAB PO PRN (11:51)
--- NOTE | 2024-08-04 12:47 | P.DS ---
Providers Date of admission: 07/23/24 11:36 Attending physician: Jd Adamson Consults: 07/23/24 09:45 Consult Physician Urgent Consulting Provider: Partha Wells Consult Reason/Comments: Cholelithiasis with cholecystitis Do you want consulting provider notified?: Yes Consult Physician Urgent Consulting Provider: Evelin Darnell Consult Reason/Comments: Acute kidney injury Do you want consulting provider notified?: Yes 07/27/24 17:10 Consult Physician Urgent Consulting Provider: Dameon Ramirez Consult Reason/Comments: ICU management Do you want consulting provider notified?: Yes 07/30/24 18:24 Consult Physician Routine Consulting Provider: Daysi Perez Consult Reason/Comments: Postop cholestatic picture Do you want consulting provider notified?: Yes Primary care physician: Emanuel Hogan Hospital Course: Final Diagnosis -Acute cholecystitis with gallstones on presentation. Laparoscopic cholecystectomy for gangrenous cholecystitis -Acute increase in LFTs with a cholestatic pattern including bilirubin and alk phos.: Due to the severe inflammation of the gallbladder fossa patient is status post MRC -Hyperlipidemia -Glaucoma -Acute postoperative blood loss anemia, at surgical site perihepatic status post 4 units of PRBC -Essential hypertension, blood pressure running high -Metabolic acidosis from kidney injury: Improved -GERD -Hypokalemia -BPH -CAD with stent about 20 years ago. Had a stress test a year ago that was negative. -Kidney injury, acute versus chronic: Improving -Post operative transaminitis, with normal bilirubin: Slow response Discharge Disposition Stable for discharge to [facility] today. Would recommend to resume the Lipitor on discharge however would recommend to repeat a comprehensive metabolic panel in 2 to 3 days to monitor his LFTs closely and if they are not improving or worsening would recommend to hold Lipitor at that time. Patient will continue on a 7-day course of oral Levaquin to complete antibiotic therapy on discharge. He will continue a low-fat diet until follow- up with general surgery in the office. Hospital Course This is an 89-year-old male came in with concern for abdominal pain was sent over from [facility]. There was concern for free air and an abdominal x- ray he had there. Patient also was found to have elevated BUN and creatinine. He had an abdominal pelvis CT completed here which reveals prominence of the gallbladder as well as gallbladder mildly distended with gallstones there is prostate a megaly nonobstructing right renal calculus no evidence for obstructive uropathy. There is possible early honeycombing in the right lung base and severe coronary artery atherosclerosis. Patient was admitted to the hospital under medicine with a consult placed to general surgery and nephrology. He was taken for a laparoscopic cholecystectomy secondary to gangrenous cholecystitis on July 24. Postoperatively patient was having increased abdominal pain had a drop in hemoglobin and blood pressure. A repeat abdominal pelvis CT reveals severe phlegmon and hemoperitoneum.. Patient was also having elevated LFTs and bilirubin GI services was consulted. Patient is pending MRCP. Today he does report that his abdominal pain has improved LFTs are slightly improved as well he may have passed a gallstone. Patient went for MRCP which reveals significant inflammation around the gallbladder fossa no evidence for stones choledocholithiasis or cholangitis. He was monitored closely has been started on a low-fat diet. He is having bowel movements he is not having any nausea vomiting or diarrhea. His abdominal pain is significantly improved he is not having any shortness of breath or chest pain. Most recent labs are showing a white blood cell count of 11.6, hemoglobin 9.0, sodium 137, potassium 4.1, BUN of 21.4, creatinine of 1.1, magnesium 1.9. Most recent LFTs include a bilirubin level of 1.1, AST of 61, ALT of 82, alk phos of 240. His lungs are clear S1-S2 auscultated abdomen is soft and nontender he is alert x 3 and he will be discharged to [facility] for rehabilitation today. Please see medication reconciliation for a list of current medications. Thank you for allowing us to participate in the care of this patient. The impression and plan of care has been dictated by Rosa Isela Whittington Nurse Practitioner as directed. Dr. Flakito MD I have performed a history and physical examination and medical decision making of this patient, discussed the same with the dictator, and agree with the dictators assessment and plan as written, documented as a scribe. Based on total visit time, I have performed more than 50% of this visit. Patient Condition at Discharge: Fair Plan - Discharge Summary Discharge Rx Participant: Yes New Discharge Prescriptions: New hydrALAZINE HCL [Apresoline] 50 mg PO TID tab Levofloxacin [Levaquin] 500 mg PO DAILY 7 Days #7 tab Calcium Carbonate [Tums] 1,000 mg PO QID PRN tab PRN Reason: Heartburn Continue Losartan Potassium 50 mg PO DAILY Latanoprost Ophth [Xalatan 0.005%] 1 drop BOTH EYES HS Atorvastatin [Lipitor] 40 mg PO DAILY Omeprazole [PriLOSEC] 20 mg PO DAILY Ondansetron [Zofran] 4 mg PO Q8HR PRN PRN Reason: Nausea polyethylene glycoL 3350 [Miralax] 17 gm PO DAILY tadalafiL [Cialis] 20 mg PO DAILY PRN PRN Reason: E.D. traZODone HCL [Desyrel] 100 mg PO HS Brimonidine Tartrate [Alphagan P 0.2% Ophth Soln] 1 drop BOTH EYES BID Dorzolamide-Timol 2.23%/0.68% [Cosopt] 1 drop BOTH EYES BID Ferrous Sulfate [Iron (65 MG Elemental)] 325 mg PO DAILY Furosemide [Lasix] 20 mg PO DAILY Tamsulosin [Flomax] 0.4 mg PO DAILY Discharge Medication List Atorvastatin [Lipitor] 40 mg PO DAILY 05/03/21 [History] Latanoprost Ophth [Xalatan 0.005%] 1 drop BOTH EYES HS 05/03/21 [History] Losartan Potassium 50 mg PO DAILY 05/03/21 [History] traZODone HCL [Desyrel] 100 mg PO HS 05/03/21 [History] Brimonidine Tartrate [Alphagan P 0.2% Ophth Soln] 1 drop BOTH EYES BID 07/23/24 [History] Dorzolamide-Timol 2.23%/0.68% [Cosopt] 1 drop BOTH EYES BID 07/23/24 [History] Ferrous Sulfate [Iron (65 MG Elemental)] 325 mg PO DAILY 07/23/24 [History] Furosemide [Lasix] 20 mg PO DAILY 07/23/24 [History] Omeprazole [PriLOSEC] 20 mg PO DAILY 07/23/24 [History] Ondansetron [Zofran] 4 mg PO Q8HR PRN 07/23/24 [History] Tamsulosin [Flomax] 0.4 mg PO DAILY 07/23/24 [History] polyethylene glycoL 3350 [Miralax] 17 gm PO DAILY 07/23/24 [History] tadalafiL [Cialis] 20 mg PO DAILY PRN 07/23/24 [History] Calcium Carbonate [Tums] 1,000 mg PO QID PRN tab 08/04/24 [Rx] Levofloxacin [Levaquin] 500 mg PO DAILY 7 Days #7 tab 08/04/24 [Rx] hydrALAZINE HCL [Apresoline] 50 mg PO TID tab 08/04/24 [Rx] Follow up Appointment(s)/Referral(s): Emanuel Hogan MD [Primary Care Provider] - 1-2 days [facility]idential [facility] [NON-STAFF] - As Needed Partha Wells MD [STAFF PHYSICIAN] - 1 Week Ambulatory/Diagnostic Orders: Basic Metabolic Panel [LAB.AMB] Location: None Selected Complete Blood Count w/diff [LAB.AMB] Time Frame: 4 Days, Location: None Selected Discharge Disposition: TRANSFER TO SNF/ECF
--- NOTE | 2024-08-04 12:48 | P.PN ---
Subjective Progress Note Date: 08/04/24 This is a pleasant 89-year-old male patient who was admitted back on 07/23/2024 with abdominal pain as a transfer from [place]. He was found to have cholecystitis gangrenous and had undergone a laparoscopic cholecystectomy on 07/24/2024. Follow-up CT scan of the abdomen from yesterday 07/27/2024 revealed severe phlegmon in the gallbladder fossa with air bubbles and edema extending into the posterior segment of the right lower liver, free IntraOp peritoneal air and hemoperitoneum. Chronic changes at the lung bases. He did have a drop in hemoglobin to 5.7. He is status post 4 units of packed red blood cells this admission. Current hemoglobin 7.6. White count 10.2. INR 1.5. Sodium 141. Potassium 2.9. Bicarb 24. BUN 69. Creatinine 2.21. Glucose 131. He remains on ceftriaxone and Flagyl. D5W with 3 A of bicarb at 100 mL/h. Lovenox for DVT prophylaxis. We are consulted for possible admission to the intensive care unit. He is seen today on the regular medical floor. He is sitting up in a chair. Awake and alert in no acute distress. Maintaining good O2 saturations in the 90s on room air. He is afebrile. Hemodynamically stable. The patient is seen today July 29, 2024 in follow-up on the regular medical floor. He is currently sitting up in a chair. Awake and alert in no acute distress. He is maintaining O2 saturations in the 90s on room air. He is status post 4 units of packed red blood cells this admission. Current hemoglobin 7.4. White count 10.7. Platelets 203. Sodium 142. Potassium 3.3. Bicarb 28. BUN 41. Creatinine 1.60. Glucose 105. AST 114. ALT 156. He remains on ceftriaxone and Flagyl. Tolerating a clear liquid diet. The patient is seen today July 30, 2024 in follow-up on the regular medical floor. He is awake and alert in no acute distress. Sitting up in a chair at the bedside. Maintaining good O2 saturations in the mid 90s on room air. Has been afebrile. Somewhat hypertensive. He is status post 4 units of packed red blood cells this admission. Current hemoglobin 7.4. Glucose 144. Sodium 142. Potassium 3.5. Bicarb 25. BUN 25. Creatinine 1.3. He remains on ceftriaxone. The patient is seen today July 31, 2024 in follow-up on the regular medical floor. He is currently resting comfortably in bed. Awake and alert in no acute distress. Maintaining good O2 saturations in the 90s on room air. Denies any worsening shortness of breath, cough or congestion. White count 15.9. Hemoglobin 9.0. Platelets 257. INR 1.3. Sodium 133. Potassium 3.4. Bicarb 24. BUN 26. Creatinine 1.29. AST 132. ALT 146. Alk phos 454. He is continued on ceftriaxone and Flagyl. The patient is seen today August 01, 2024 in follow-up on the regular medical floor. He is currently sitting up in bed. Awake and alert in no acute distress. Maintaining good O2 saturations in the 90s on room air. He remains on ceftriaxone and Flagyl. MR MRCP results revealed no bladder fossa demonstrates postsurgical changes with severe inflammation. No organizing fluid collection within the visualized area. Suspected spreading inflammation/infection involving the adjacent liver parenchyma. Hepatic steatosis. No evidence to suggest choledocholithiasis or biliary ductal dilatation. White count 12.9. Hemoglobin 7.4. Platelets 223. Sodium 138. Potassium 4.0. Bicarb 22. BUN 24. Creatinine 1.2. Glucose 74. AST 77. ALT 104. Alk phos 299. The patient is seen today August 02, 2024 in follow-up on the regular medical floor. He is currently up in a chair. Awake and alert in no acute distress. Maintaining good O2 saturations in the 90s on room air. He denies any shortness of breath, cough or congestion. He is status post 4 units of packed red blood cells. Current hemoglobin 7.3. Platelets 225. White count 11.2. Sodium 138. Potassium 3.8. Bicarb 21. BUN 24. Creatinine 1.2. Glucose 122. He is on ceftriaxone and Flagyl. Continues to work well with the incentive spirometer. The patient is seen today August 03, 2024 in follow-up on the regular medical floor. He is awake and alert in no acute distress. Sitting up in the chair. Denies any shortness of breath, cough or congestion. Denies any abdominal pain. He is maintaining good O2 saturations in the mid 90s on room air. Has been afebrile. Hemodynamically stable. He continues work well with the incentive spirometer. He remains on antibiotics in the form of ceftriaxone and Flagyl. He is tolerating a low fiber diet. The patient is seen today August 04, 2024 in follow-up on the regular medical floor. He is awake and alert in no acute distress. Sitting up at the bedside. Denies any worsening shortness of breath, cough or congestion. He is maintaining O2 saturations in the 90s on room air. He continues to work well with the incentive spirometer. He remains on ceftriaxone and Flagyl. Sodium 137. Potassium 4.1. Bicarb 21. BUN 21. Creatinine 1.1. Glucose 99. He is tolerating a low fiber diet. Objective - Vital Signs Vital signs: Vital Signs Temp 98.8 F 08/04/24 07:11 Pulse 90 08/04/24 07:11 Resp 16 08/04/24 07:11 BP 132/62 08/04/24 07:11 Pulse Ox 94 L 08/04/24 07:11 FiO2 Intake & Output 08/03/24 08/04/24 08/04/24 18:59 06:59 18:59 Other: Voiding Method Toilet Toilet # Voids 1 # Bowel Movements 1 - Exam GENERAL EXAM: Alert, very pleasant 89-year-old male patient, sitting up at the bedside, on room air, in no apparent distress. HEAD: Normocephalic. EYES: Normal reaction of pupils, equal size. NOSE: Clear with pink turbinates. THROAT: No erythema or exudates. NECK: No masses, no JVD. CHEST: No chest wall deformity. LUNGS: Equal air entry with crackles in the bilateral bases. CVS: S1 and S2 normal with no audible murmur, regular rhythm. ABDOMEN: Abdominal dressing dry and intact, no hepatosplenomegaly, normal bowel sounds, no guarding or rigidity. SPINE: No scoliosis or deformity SKIN: No rashes CENTRAL NERVOUS SYSTEM: No focal deficits, tone is normal in all 4 extremities. EXTREMITIES: There is no peripheral edema. No clubbing, no cyanosis. Peripheral pulses are intact. - Labs CBC & Chem 7: 08/02/24 11:31 08/04/24 02:39 Labs: Abnormal Lab Results - Last 24 Hours (Table) 08/03/24 08/04/24 08/04/24 Range/Units 21:15 02:39 11:09 Carbon Dioxide 20.6 L (21.6-31.8) mmol/L POC Glucose (mg/dL) 153 H 168 H (70-110) mg/dL Calcium 7.6 L (8.7-10.3) mg/dL Assessment and Plan Assessment: Abdominal pain secondary to acute cholecystitis, gangrenous. Status post laparoscopic cholecystectomy on 07/24/2024. MR MRCP results revealed no bladder fossa demonstrates postsurgical changes with severe inflammation. No organizing fluid collection within the visualized area. Suspected spreading inflammation/infection involving the adjacent liver parenchyma. Hepatic steatosis. No evidence to suggest choledocholithiasis or biliary ductal dilatation. Acute blood loss anemia secondary to above requiring 4 units of packed red blood cells. Current hemoglobin 9.0 Acute kidney injury, secondary to acute tubular necrosis, improving Hypokalemia, receiving replacement therapy Transaminitis secondary to above Hypertension Hyperlipidemia Glaucoma BPH GERD Coronary disease with previous stent placement Plan: The patient was seen and evaluated Labs and medications reviewed Stable and on room air Continue incentive spirometer Plan is for subacute rehabilitation possibly today I have personally seen and examined the patient, performed the documentation and the assessment and plan as written. Number of minutes spent on the visit: 10 Dictation was produced using [employer] dictation software. Please excuse any grammatical, word or spelling errors.
[2024-08-04 13:19] VITALS: BP 134/50; PULSE 82; TEMP 98.5
--- NOTE | 2024-08-04 13:27 | P.PN ---
Subjective patient is seen for follow-up for acute kidney injury. Status post cholecystectomy on 07/24/2024. Serum creatinine improved with creatinine 1.1. Tolerating oral intake. Objective - Vital Signs Vital signs: Vital Signs Temp 98.5 F 08/04/24 13:02 Pulse 82 08/04/24 13:02 Resp 16 08/04/24 13:02 BP 134/50 08/04/24 13:02 Pulse Ox 96 08/04/24 13:02 FiO2 Intake & Output 08/03/24 08/04/24 08/04/24 18:59 06:59 18:59 Other: Voiding Method Toilet Toilet # Voids 1 # Bowel Movements 1 - Exam General: comfortable with no acute distress. Cardiovascular: S1 S2 reg, no murmur Lungs: CTA bilateral, Abdominal: soft, upper abdomen tender to palpation Extremities: no edema [employer] exam grossly intact - Labs CBC & Chem 7: 08/02/24 11:31 08/04/24 02:39 Labs: Abnormal Lab Results - Last 24 Hours (Table) 08/03/24 08/04/24 08/04/24 Range/Units 21:15 02:39 11:09 Carbon Dioxide 20.6 L (21.6-31.8) mmol/L POC Glucose (mg/dL) 153 H 168 H (70-110) mg/dL Calcium 7.6 L (8.7-10.3) mg/dL Assessment and Plan Assessment: 1. Acute kidney injury. ATN. Nonoliguric. Baseline creatinine unknown. Non obstructing right renal calculus on CT abdomen. No evidence for obstructive uropathy. Losartan on hold. Status post IV fluids. 2. H/o of BPH. Prostatomegaly on CT of abdomen. Follows up with urologist annually. 3. Hypertension with blood pressure currently on the lower side,now improved. 4. Non anion gap metabolic acidosis, secondary to KIMBERLY, status post bicarb drip 5. Acute cholecystitis with cholelithiasis being followed by surgery. S/p laparoscopic cholecystectomy 07/24/24. 6. Acute blood loss anemia status post packed RBCs transfusion. Plan: continue off of IV fluids. Encourage increased oral intake.
== END 2024-08-04 14:16 | DRG 417 ==
LOC: EC 06:02 → 4SSUR 11:36
PROVIDERS: ADMIT Hospitalist; ATTEND Hospitalist
PROC: 0FT44ZZ Resection of Gallbladder, Percutaneous Endoscopic Approach (ICD-10-PCS; principal; 2024-07-24 12:15)
PROC: 30233N1 Transfusion of Nonautologous Red Blood Cells into Peripheral Vein, Percutaneous Approach (ICD-10-PCS; 2024-07-26)
DX: K80.00 Calculus of gallbladder with acute cholecystitis without obstruction (principal); K66.1 Hemoperitoneum; N17.0 Acute kidney failure with tubular necrosis; E87.20 Acidosis, unspecified; D62 Acute posthemorrhagic anemia; J84.9 Interstitial pulmonary disease, unspecified; K82.A1 Gangrene of gallbladder in cholecystitis; I16.0 Hypertensive urgency; I11.9 Hypertensive heart disease without heart failure; K76.0 Fatty (change of) liver, not elsewhere classified; I25.10 Atherosclerotic heart disease of native coronary artery without angina pectoris; N40.0 Benign prostatic hyperplasia without lower urinary tract symptoms; E78.5 Hyperlipidemia, unspecified; H40.9 Unspecified glaucoma; K21.9 Gastro-esophageal reflux disease without esophagitis; H54.62 Unqualified visual loss, left eye, normal vision right eye; N20.0 Calculus of kidney; E83.42 Hypomagnesemia; E87.6 Hypokalemia; I95.9 Hypotension, unspecified; R19.5 Other fecal abnormalities; Z79.899 Other long term (current) drug therapy; Z79.82 Long term (current) use of aspirin; Z87.891 Personal history of nicotine dependence; Z95.5 Presence of coronary angioplasty implant and graft
CPT/HCPCS: 36415; 74176; 74181; 76705; 76770; 80048; 80053; 80074; 81001; 83516; 83605; 83735; 84132; 85025; 85027; 85610; 86038; 86160; 86225; 86255; 86334; 86335; 86706; 86803; 86850; 86900; 86901; 86920; 87340; 88304; 93005; 96365; 96375; 96376; 99285

== ENCOUNTER → 2024-09-23 | Outpatient (CLI) | payer MEDICARE ==
[2024-09-23 16:24] LABS: Basophils # (A) 0.08 X 10*3/uL (0.00-0.10); Eosinophils % (A) 8.8 %; HCT 32.5 % (39.6-50.0); HGB 9.9 g/dL (13.0-17.0); Lymphocytes # (A) 2.36 X 10*3/uL (0.90-5.00); Lymphocytes % (A) 29.7 %; MCH 28.5 pg (27.0-32.0); MCHC 30.5 g/dL (32.0-37.0); MCV 93.7 FL (80.0-97.0); Mean Platelet Volume 10.4 FL (9.5-12.2); Monocytes # (A) 0.63 X 10*3/uL (0.20-1.00); Monocytes % (A) 7.9 %; NRBC Per 100 WBC 0 X 10*3/uL (0.00-0.01); Neutrophils # (A) 4.13 X 10*3/uL (1.80-7.70); Platelet Count 233 X 10*3/uL (140-440); RBC 3.47 X 10*6/uL (4.40-5.60); RDW 15.9 % (11.5-14.5); WBC 7.95 X 10*3/uL (4.50-10.00)
[2024-09-23 16:44] LABS: ALT 13 U/L (10-49); AST 22 U/L (14-35); Albumin 4.1 g/dL (3.8-4.9); Albumin/Globulin Ratio 0.85 Ratio (1.60-3.17); Alkaline Phosphatase 88 U/L (41-126); BUN/Creat Ratio 18.24 Ratio (12.00-20.00); Blood Urea Nitrogen 38.3 mg/dL (9.0-27.0); Calcium 9.4 mg/dL (8.7-10.3); Carbon Dioxide 18.5 mmol/L (21.6-31.8); Chloride 106 mmol/L (96-109); Globulin 4.8 g/dL (1.6-3.3); Glucose 107 mg/dL (70-110); Potassium 4.7 mmol/L (3.5-5.5); Sodium 137 mmol/L (135-145); Total Bilirubin 0.6 mg/dL (0.3-1.2); Total Protein 8.9 g/dL (6.2-8.2)
== END | disposition home or self-care (01) ==
LOC: LABWHC1 10:03
PROVIDERS: ATTEND Internal Medicine Nephrology
DX: N17.9 Acute kidney failure, unspecified (principal)
CPT/HCPCS: 36415; 80053; 85025